=== PATIENT | male | born 1945 | race Caucasian/White ===

== ENCOUNTER 2016-09-27 15:46 | Inpatient (IN) | payer MEDICARE ==
[~2016-09-27] VITALS: Ht 188 cm; Wt 119.3 kg
[~2016-09-27 15:46] MED LIST: ASPI325T4 PO; ATORVASTATIN CA80 MG PO; EZET10TA3 PO; GLIP10TA13 PO; METF500T4 PO; METO25TA4 PO; MULT-404 PO; POTA99TA2 PO; RANI300T PO; VALS160T3 PO
[2016-09-27] MEDS ORDERED: PROCHLORPERAZINE 25 MG SUPP.RECT. PR PRN (17:00)
[2016-09-27] MEDS ORDERED: CALCIUM CARBONATE 500 MG TAB.CHEW PO PRN (17:00)
[2016-09-27] MEDS ORDERED: MORPHINE SULFATE 2 MG/ML DISP.SYRIN. IV PRN (17:00)
[2016-09-27] MEDS ORDERED: PROCHLORPERAZINE 10 MG/2 ML VIAL. IV PRN (17:00)
[2016-09-27] MEDS ORDERED: GLIPIZIDE 5 MG TABLET PO SCH (17:00)
[2016-09-27] MEDS ORDERED: BISACODYL 10 MG SUPP.RECT PR PRN (17:00)
[2016-09-27] MEDS ORDERED: ONDANSETRON PF 4 MG/2 ML VIAL. IV PRN (17:00)
[2016-09-27] MEDS ORDERED: LACTULOSE 20 GM/30 ML SOLUTION. PO PRN (17:00)
[2016-09-27] MEDS ORDERED: MAG HYDROX/ALUMINUM HYD/SIMETH 30 ML ORAL.SUSP PO PRN (17:00)
[2016-09-27] MEDS ORDERED: OXYCODONE IR 5 MG TABLET. PO PRN (17:00)
[2016-09-27] MEDS ORDERED: MAGNESIUM HYDROXIDE 2,400 MG/30 ML ORAL.SUSP. PO PRN (17:00)
--- NOTE | 2016-09-27 17:14 | PDOC1 ---
History and Physical Date of Admission Date of Admission DATE: 09/27/16 TIME: 17:06 Identification/Chief Complaint Chief Complaint abd pain Source Source: Caregiver, Chart review, Patient History of Present Illness History of Present Illness 71 y.o male who brought himself today to his PCP Brenda Rosario for cholecystectomy, He and his have been vacationing in [place] x 2 mos now, started to have acute abd pain with emesis and black stools x 1 week ago, was admitted overnight in a hospital in [place] (records in chart), was found to have multiple GB stones, largest one measuring 16 cms, Underwent ERCP with sphincterotomy and stent placement there, no surgery was done though advised bec pt from here and post op course, recovery would be unpredictable given size of GB stones, Pt looks comfortable laying down but when he moves then that's where the pain is. Also notes black stools, diarrheic, He brings records showing multiple GB stones, one eroding into duodenal wall? CD also in chart CAse dw Dr. Virgen () Past Medical History Cardiovascular: CAD, HTN Past Surgical History Past Surgical History: Appendectomy, CABG Family History Family History: No Significant Social History Smoke: No ALCOHOL: none Drugs: None Current Problem List Problem List Problems Medical Problems: (1) Cholelithiasis Status: Acute Problems: Current Medications Current Medications Current Medications Sodium Chloride (Iv Sodium Chloride 0.45%) 1,000 ml @ 100 mls/hr Q10H IV ; Start 09/27/16 at 16:50 Ondansetron HCl (Zofran) 4 mg PRN Q6HRS PRN IV NAUSEA/VOMITING; Start 09/27/16 at 17:00 Prochlorperazine Edisylate (Compazine) 10 mg PRN Q6HRS PRN IV NAUSEA/VOMITING; Start 09/27/16 at 17:00 Prochlorperazine (Compazine) 25 mg PRN Q12HR PRN [place] NAUSEA/VOMITING; Start at 17:00 Al Hydrox/Mg Hydrox/Simethicone (Mylanta Plus Xs) 30 ml PRN Q3HRS PRN PO HEARTBURN / GAS; Start 09/27/16 at 17:00 Calcium Carbonate/ Glycine (Tums) 500 mg PRN Q3HRS PRN PO UPSET STOMACH; Start 09/27/16 at 17:00 Oxycodone HCl (Roxicodone) 5 mg PRN Q3HRS PRN PO BREAKTHROUGH PAIN; Start 09/27 at 17:00 Morphine Sulfate 2 mg PRN Q2HR PRN IV MILD-MOD PAIN; Start 09/27/16 at 17:00 Magnesium Hydroxide (Milk Of Magnesia) 2,400 mg PRN Q12HR PRN PO CONSTIPATION; Start 09/27/16 at 17:00 Lactulose 20 gm PRN Q12HR PRN PO CONSTIPATION; Start 09/27/16 at 17:00 Bisacodyl (Dulcolax Supp) 10 mg PRN DAILY PRN [place] CONSTIPATION; Start 09/27/16 at 17:00 EZETIMIBE (Zetia) 10 mg DAILY PO ; Start 09/28/16 at 09:00 Metoprolol Tartrate (Lopressor) 12.5 mg HS PO ; Start 09/27/16 at 21:00 Atorvastatin Calcium (Lipitor) 80 mg QHS PO ; Start 09/27/16 at 21:00 Glipizide (Glucotrol) 10 mg BIDBFRMEAL PO ; Start 09/27/16 at 17:00 Multivitamins/ Calcium (Thera M Plus) 1 tab DAILY PO ; Start 09/28/16 at 09:00 Non-Formulary Medication 99 mg DAILY PO ; Start 09/28/16 at 09:00; Status UNV Famotidine (Pepcid) 20 mg BID PO ; Start 09/27/16 at 21:00 Active Scripts Active Reported Potassium Gluconate 99 Mg Tablet 99 Mg PO DAILY Men's Multi-Vitamin (Multivitamin) 1 Each Tablet 1 Each PO DAILY Aspirin 325 Mg Tablet 1 Tab PO DAILY Ranitidine Hcl 300 Mg Tablet 1 Tab PO BID Glipizide 10 Mg Tablet 1 Tab PO BIDWMEALS Zetia (Ezetimibe) 10 Mg Tablet 1 Tab PO DAILY Atorvastatin Calcium 80 Mg Tablet 1 Tab PO HS Metoprolol Tartrate 25 Mg Tablet 12.5 Mg PO HS Allergies Allergies: Coded Allergies: Penicillins (Verified Allergy, Intermediate, 05/13/16) lisinopril (Verified Allergy, Intermediate, 05/13/16) niacin (Verified Allergy, Intermediate, 05/13/16) ROS General: No: Appetite, Chills, Fatigue, Malaise, Night Sweats, Other PSYCHOLOGICAL ROS: No: Anxiety, Behavioral Disorder, Concentration difficultie , Decreased libido, Depression, Disorientation, Hallucinations, Hostility, Irritablity, Memory difficulties, Mood Swings, Obsessive thoughts, Other, Physical abuse, Sexual abuse, Sleep disturbances, Suicidal ideation Eyes: No Blurry vision, No Decreased vision, No Double vision, No Dry eyes, No Excessive tearing, No Eye Pain, No Itchy Eyes, No Loss of vision, No Other, No Photophobia, No Scotomata, No Uses contacts, No Uses glasses HEENT: No: Epistaxis, Heacaches, Hearing change, Nasal congestion, Nasal discharge, Oral lesions, Other, Sinus pain, Sneezing, Snoring, Sore Throat, Tinnitus, Vertigo, Visual Changes, Vocal changes ALLERGY AND IMMUNOLOGY: No: Hives, Insect Bite Sensitivity, Itchy/Watery Eyes, Nasal Congestion, Other, Post Nasal Drip, Seasonal Allergies Hematological and Lymphatic: No: Bleeding Problems, Blood Clots, Blood Transfusions, Brusing, Night Sweats, Other, Pallor, Swollen Lymph Nodes ENDOCRINE: No: Breast Changes, Galactorrhea, Hair Pattern Changes, Hot Flashes , Malaise/lethargy, Mood Swings, Other, Palpitations, Polydipsia/polyuria, Skin Changes, Temperature Intolerance, Unexpected Weight Changes Breast: No New/Changing Breast Lumps, No Nipple changes, No Nipple discharge, No Other Cardiovascular: No Chest Pain, No Edema, No Lt Headedness, No Orthopnea, No Other, No Palpitations, No Paroxysmal Noc. Dyspnea Gastrointestinal: Yes Diarrhea, Yes Melena Genitourinary: YES Pain, No , No , No , No , No , No , No , No Discharge, No Dysuria, No Flank Pain, No Frequency, No Hematuria, No Incontinence, No Other, No Retention, No Urgency Musculoskeletal: No Gait Disturbance, No Joint Pain, No Joint Stiffness, No Joint Swelling, No Muscle Pain, No Muscular Weakness, No Other, No Pain In:, No Swelling In: Neurological: No Behavorial Changes, No Bowel/Bladder ControlChng, No Confusion , No Dizziness, No Gait Disturbance, No Headaches, No Impaired Coord/balance, No Memory Loss, No Numbness/Tingling, No Other, No Seizures, No Speech Problems , No Tremors, No Visual Changes, No Weakness Skin: No Acne, No Dry Skin, No Eczema, No Hair Changes, No Lumps, No Mole Changes, No Mottling, No Nail Changes, No Other, No Pruritus, No Rash, No Skin Lesion Changes Physical Exam General: Alert, Oriented X3, Cooperative, No acute distress HEENT: Atraumatic, PERRLA, EOMI Lungs: Clear to auscultation, Normal air movement Heart: S1S2, RRR, no thrills, no rubs, no gallops, no murmurs Cardiovascular: S1, S2 Breasts: Normal Abdomen: Soft, Other (tenderness, mild on deep palpation, RUQ and epigatsric areas) Male Genitals Exam: normal genitalia Rectal Exam: not examined, mass PELVIC: Nml ext genitalia, Nml ext vulva, Nml ext vagina, Nml ext cervic, Nml ext uterus Extremities: No clubbing Skin: No rashes, No breakdown, No significant lesion Neuro: Normal gait, Normal speech, Strength at 5/5 X4 ext, Normal tone, Sensation intact, Cranial nerves 3-12 NL, Reflexes 2+ Psych/Mental Status: Mental status NL, Mood NL VTE Prophylaxis Ordered VTE Prophylaxis Devices: Yes VTE Pharmacological Prophylaxi: Yes Assessment/Plan Assessment/Plan 1. Multiple symptomatic cholelithiasis with choledocholithiasis - records from outside hospital reviewed 2. s/p ERCP with sphincterotomy and stent placement 3. Obesity 4. HTN, NIDDM, dyslipidemia 5. 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, [facility] PLAn: NPO, IVF BAsic labs (include pT./INR, CMP) GS consult REsume home meds except OHA since NPO SSI dw family and gS SANTHOSH AGUILAR MD Sep 27, 2016 17:14
[2016-09-27 17:30] LABS: BASO # 0.1 x10^3/uL (0.0-0.2); BASO % 1 % (0-3); EOS % 3 % (0-3); HEMATOCRIT 33.3 % (39.0-53.0); LYMPH # 1.9 x10^3/uL (1.0-4.8); LYMPH % 27 % (24-48); MEAN CORPUSCULAR HEMOGLOBIN 29 pg (25-35); MEAN CORPUSCULAR HGB CONC 33 g/dL (31-37); MEAN CORPUSCULAR VOLUME 87 fL (79-100); MONO % 13 % (0-9); NEUT % 56 % (31-73); PLATELET COUNT 297 x10^3/uL (140-400); RED BLOOD COUNT 3.83 x10^6/uL (4.30-5.70); RED CELL DISTRIBUTION WIDTH 15.8 % (11.5-14.5); WHITE BLOOD COUNT 7.1 x10^3/uL (4.0-11.0)
[2016-09-27 17:46] LABS: INR 1.1 (0.8-1.1); PROTHROMBIN TIME PATIENT 13.9 SEC (11.7-14.0)
--- NOTE | 2016-09-27 18:08 | EKG ---
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
[2016-09-27 18:12] LABS: ALBUMIN 2.9 g/dL (3.4-5.0); ALBUMIN/GLOBULIN RATIO 0.6 (1.0-1.7); CALCIUM 9.5 mg/dL (8.5-10.1); CREATININE 1.3 mg/dL (0.7-1.3); GFR 54.3; MAGNESIUM 1.8 mg/dL (1.8-2.4); PHOSPHORUS 4.2 mg/dL (2.6-4.7); POTASSIUM 3.9 mmol/L (3.5-5.1); TOTAL PROTEIN 7.7 g/dL (6.4-8.2)
[2016-09-27] MEDS: IV 1/2 NORMAL SALINE 1,000 ML IV SCH (18:13)
[2016-09-27 19:00] VITALS: BP 139/57
[2016-09-27] MEDS: ATORVASTATIN CALCIUM 40 MG TABLET. PO SCH (21:42)
[2016-09-27] MEDS: FAMOTIDINE 20 MG TABLET. PO SCH (21:42)
[2016-09-27] MEDS: METOPROLOL TART IMMED RELEASE 25 MG TABLET PO SCH (21:43)
[2016-09-27 23:00] VITALS: BP 134/52
[2016-09-28 03:00] VITALS: BP 145/60
[2016-09-28] MEDS: IV 1/2 NORMAL SALINE 1,000 ML IV SCH ×3 (03:47→21:37)
[2016-09-28 07:00] VITALS: BP 146/54
[2016-09-28] MEDS: FAMOTIDINE 20 MG TABLET. PO SCH ×3 (08:07→21:29)
[2016-09-28] MEDS: EZETIMIBE 10 MG TABLET PO SCH ×2 (08:08→11:53)
[2016-09-28] MEDS: MULTIVITAMIN with MINERAL TABLET. PO SCH ×2 (08:08→11:53)
[2016-09-28] MEDS ORDERED: NON FORMULARY ITEM (Potassium Gluconate 99 MG) PO SCH (09:00)
--- NOTE | 2016-09-28 09:09 | PDOC2 ---
LESLIE LOUISE TOOL HONING MACHINE SET UP OPERATOR 09/28/16 0909: CONSULT Date of Consult Date of Consult DATE: 09/28/16 TIME: 09:04 Reason for Consult Reason for Consult: cholecystitis Referring Physician Referring Physician: Dr Benites Identification/Chief Complaint Chief Complaint cholecystitis Source Source: Chart review, Patient History of Present Illness Reason for Visit: Admitted 09/24 in [place] where vacationing for ongoing abdominal pain, it had been occurring for 2 weeks or so. noted to have choledocholithiasis, underwent ERCP, needed lap wero, however wanted to return home prior to surgery. Denies pain currently, no n/v, has been taking clear liquids Past Medical History Cardiovascular: CAD, HTN Past Surgical History Past Surgical History: Appendectomy, CABG Family History Family History: No Significant Social History No ALCOHOL: other (quit 2001, was a heavy drinker prior) Drugs: None Current Problem List Problem List Problems Medical Problems: (1) Cholelithiasis Status: Acute Current Medications Current Medications Current Medications Sodium Chloride (Iv Sodium Chloride 0.45%) 1,000 ml @ 100 mls/hr Q10H IV Last administered on 09/28/16t 03:47; Start 09/27/16 at 16:50 Ondansetron HCl (Zofran) 4 mg PRN Q6HRS PRN IV NAUSEA/VOMITING; Start 09/27/16 at 17:00 Prochlorperazine Edisylate (Compazine) 10 mg PRN Q6HRS PRN IV NAUSEA/VOMITING; Start 09/27/16 at 17:00 Prochlorperazine (Compazine) 25 mg PRN Q12HR PRN [place] NAUSEA/VOMITING; Start at 17:00 Al Hydrox/Mg Hydrox/Simethicone (Mylanta Plus Xs) 30 ml PRN Q3HRS PRN PO HEARTBURN / GAS; Start 09/27/16 at 17:00 Calcium Carbonate/ Glycine (Tums) 500 mg PRN Q3HRS PRN PO UPSET STOMACH; Start 09/27/16 at 17:00 Oxycodone HCl (Roxicodone) 5 mg PRN Q3HRS PRN PO BREAKTHROUGH PAIN; Start 09/27 at 17:00 Morphine Sulfate 2 mg PRN Q2HR PRN IV MILD-MOD PAIN; Start 09/27/16 at 17:00 Magnesium Hydroxide (Milk Of Magnesia) 2,400 mg PRN Q12HR PRN PO CONSTIPATION; Start 09/27/16 at 17:00; Stop 09/27/16 at 17:15; Status DC Lactulose 20 gm PRN Q12HR PRN PO CONSTIPATION; Start 09/27/16 at 17:00; Stop at 17:15; Status DC Bisacodyl (Dulcolax Supp) 10 mg PRN DAILY PRN [place] CONSTIPATION; Start 09/27/16 at 17:00; Stop 09/27/16 at 17:15; Status DC EZETIMIBE (Zetia) 10 mg DAILY PO ; Start 09/28/16 at 09:00 Metoprolol Tartrate (Lopressor) 12.5 mg HS PO Last administered on 09/27/16t 21 :43; Start 09/27/16 at 21:00 Atorvastatin Calcium (Lipitor) 80 mg QHS PO Last administered on 09/27/16 21: 42; Start 09/27/16 at 21:00 Glipizide (Glucotrol) 10 mg BIDBFRMEAL PO ; Start 09/27/16 at 17:00; Stop at 17:15; Status DC Multivitamins/ Calcium (Thera M Plus) 1 tab DAILY PO ; Start 09/28/16 at 09:00 Non-Formulary Medication 99 mg DAILY PO ; Start 09/28/16 at 09:00; Status UNV Famotidine (Pepcid) 20 mg BID PO Last administered on 09/27/16 21:42; Start at 21:00 Active Scripts Active Reported Potassium Gluconate 99 Mg Tablet 99 Mg PO DAILY Men's Multi-Vitamin (Multivitamin) 1 Each Tablet 1 Each PO DAILY Aspirin 325 Mg Tablet 1 Tab PO DAILY Ranitidine Hcl 300 Mg Tablet 1 Tab PO BID Glipizide 10 Mg Tablet 1 Tab PO BIDWMEALS Zetia (Ezetimibe) 10 Mg Tablet 1 Tab PO DAILY Atorvastatin Calcium 80 Mg Tablet 1 Tab PO HS Metoprolol Tartrate 25 Mg Tablet 12.5 Mg PO HS Allergies Allergies: Coded Allergies: Penicillins (Verified Allergy, Intermediate, 05/13/16) lisinopril (Verified Allergy, Intermediate, 05/13/16) niacin (Verified Allergy, Intermediate, 09/27/16) Hives, itching, swelling, sweating ROS General: No: Chills, Other (fevers) PSYCHOLOGICAL ROS: No: Anxiety, Depression Eyes: No Blurry vision, No Double vision HEENT: No: Heacaches, Sore Throat Hematological and Lymphatic: No: Bleeding Problems, Blood Clots Respiratory: No: Cough, Shortness of breath Cardiovascular: No Chest Pain, No Palpitations Gastrointestinal: No Nausea, No Vomiting Genitourinary: No Dysuria, No Hematuria Musculoskeletal: No Joint Pain, No Muscle Pain Neurological: No Confusion, No Numbness/Tingling Skin: No Pruritus, No Rash Physical Exam General: Alert, Oriented X3, Cooperative, No acute distress HEENT: PERRLA, Mucous membr. moist/pink Lungs: Clear to auscultation, Normal air movement Heart: Regular rate, Normal S1, Normal S2, No murmurs Abdomen: Soft, Other (NTTP, ND, LLQ scar) Extremities: No clubbing, No cyanosis Skin: No rashes, No breakdown Neuro: Normal speech, Sensation intact Psych/Mental Status: Mental status NL, Mood NL MUSCULOSKELETAL: No deformity, No swelling Vitals VITALS Vital Signs Date Time Temp Pulse Resp B/P Pulse Ox O2 Delivery O2 Flow Rate FiO2 09/28/16 03:00 97.7 55 18 145/60 97 Room Air 97.7 Labs Labs Laboratory Tests Test 09/27/16 17:25 White Blood Count 7.1x10^3/uL (4.0-11.0) Red Blood Count 3.83x10^6/uL (4.30-5.70) Hemoglobin 11.0g/dL (13.0-17.5) Hematocrit 33.3% (39.0-53.0) Mean Corpuscular Volume 87fL (79-100) Mean Corpuscular Hemoglobin 29pg (25-35) Mean Corpuscular Hemoglobin Concent 33g/dL (31-37) Red Cell Distribution Width 15.8% (11.5-14.5) Platelet Count 297x10^3/uL (140-400) Neutrophils (%) (Auto) 56% (31-73) Lymphocytes (%) (Auto) 27% (24-48) Monocytes (%) (Auto) 13% (0-9) Eosinophils (%) (Auto) 3% (0-3) Basophils (%) (Auto) 1% (0-3) Neutrophils # (Auto) 3.9x10^3uL (1.8-7.7) Lymphocytes # (Auto) 1.9x10^3/uL (1.0-4.8) Monocytes # (Auto) 0.9x10^3/uL (0.0-1.1) Eosinophils # (Auto) 0.2x10^3/uL (0.0-0.7) Basophils # (Auto) 0.1x10^3/uL (0.0-0.2) Prothrombin Time 13.9SEC (11.7-14.0) Prothromb Time International Ratio 1.1 (0.8-1.1) Sodium Level 145mmol/L (136-145) Potassium Level 3.9mmol/L (3.5-5.1) Chloride Level 107mmol/L (98-107) Carbon Dioxide Level 27mmol/L (21-32) Anion Gap 11 (6-14) Blood Urea Nitrogen 24mg/dL (8-26) Creatinine 1.3mg/dL (0.7-1.3) Estimated GFR (Cockcroft-Gault) 54.3 BUN/Creatinine Ratio 18 (6-20) Glucose Level 128mg/dL (70-99) Calcium Level 9.5mg/dL (8.5-10.1) Phosphorus Level 4.2mg/dL (2.6-4.7) Magnesium Level 1.8mg/dL (1.8-2.4) Total Bilirubin 1.0mg/dL (0.2-1.0) Aspartate Amino Transf (AST/SGOT) 79U/L (15-37) Alanine Aminotransferase (ALT/SGPT) 95U/L (16-63) Alkaline Phosphatase 600U/L (46-116) Total Protein 7.7g/dL (6.4-8.2) Albumin 2.9g/dL (3.4-5.0) Albumin/Globulin Ratio 0.6 (1.0-1.7) Laboratory Tests Test 09/27/16 17:25 White Blood Count 7.1x10^3/uL (4.0-11.0) Red Blood Count 3.83x10^6/uL (4.30-5.70) Hemoglobin 11.0g/dL (13.0-17.5) Hematocrit 33.3% (39.0-53.0) Mean Corpuscular Volume 87fL (79-100) Mean Corpuscular Hemoglobin 29pg (25-35) Mean Corpuscular Hemoglobin Concent 33g/dL (31-37) Red Cell Distribution Width 15.8% (11.5-14.5) Platelet Count 297x10^3/uL (140-400) Neutrophils (%) (Auto) 56% (31-73) Lymphocytes (%) (Auto) 27% (24-48) Monocytes (%) (Auto) 13% (0-9) Eosinophils (%) (Auto) 3% (0-3) Basophils (%) (Auto) 1% (0-3) Neutrophils # (Auto) 3.9x10^3uL (1.8-7.7) Lymphocytes # (Auto) 1.9x10^3/uL (1.0-4.8) Monocytes # (Auto) 0.9x10^3/uL (0.0-1.1) Eosinophils # (Auto) 0.2x10^3/uL (0.0-0.7) Basophils # (Auto) 0.1x10^3/uL (0.0-0.2) Prothrombin Time 13.9SEC (11.7-14.0) Prothromb Time International Ratio 1.1 (0.8-1.1) Sodium Level 145mmol/L (136-145) Potassium Level 3.9mmol/L (3.5-5.1) Chloride Level 107mmol/L (98-107) Carbon Dioxide Level 27mmol/L (21-32) Anion Gap 11 (6-14) Blood Urea Nitrogen 24mg/dL (8-26) Creatinine 1.3mg/dL (0.7-1.3) Estimated GFR (Cockcroft-Gault) 54.3 BUN/Creatinine Ratio 18 (6-20) Glucose Level 128mg/dL (70-99) Calcium Level 9.5mg/dL (8.5-10.1) Phosphorus Level 4.2mg/dL (2.6-4.7) Magnesium Level 1.8mg/dL (1.8-2.4) Total Bilirubin 1.0mg/dL (0.2-1.0) Aspartate Amino Transf (AST/SGOT) 79U/L (15-37) Alanine Aminotransferase (ALT/SGPT) 95U/L (16-63) Alkaline Phosphatase 600U/L (46-116) Total Protein 7.7g/dL (6.4-8.2) Albumin 2.9g/dL (3.4-5.0) Albumin/Globulin Ratio 0.6 (1.0-1.7) Assessment/Plan Assessment/Plan cholecystitis, choledocholithiasis, s/p ERCP MRI had concerns for duodenal obstruction or erosion, post ERCP CT showed not extravasation of contrast in biliary system CAD, HI HTN cirrhosis, splenomegaly, portal HTN noted on CT will review with FABRICE Diego MD 09/28/16 1004: CONSULT Allergies Allergies: Coded Allergies: Penicillins (Verified Allergy, Intermediate, 05/13/16) lisinopril (Verified Allergy, Intermediate, 05/13/16) niacin (Verified Allergy, Intermediate, 09/27/16) Hives, itching, swelling, sweating Assessment/Plan Assessment/Plan Patient seen and examined by me. Appears comfortable, complains of mild upper abdominal pain but best its been in a week. Denies N/V/F. Reviewed chart from [facility]. Cholelithiasis with choledocolithiasis s/p ERCP with stent. 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 This potentially could mean surgical reconstruction of the duodenum and or biliary system. Will have Dr Doyle evaluated on Saturday (he is aware of Mr Mccabe) in the mean time will have cardiology see patient due to his significant heart history. I've spoken with the patient and family about the surgical plans, and they are agreeable. LESLIE LOUISE APRN Sep 28, 2016 09:09 FABRICE PALAFOX MD Sep 28, 2016 10:04
[2016-09-28] MEDS ORDERED: DEXTROSE 50% 25 GM / 50ML DISP.SYRIN. IV PRN (09:45)
--- NOTE | 2016-09-28 09:46 | PDOC2 ---
CARDIAC CONSULT DATE OF CONSULT Date of Consult DATE: 09/28/16 TIME: 09:45 REASON FOR CONSULT Reason for Consult: pre-operative evaluation REFERRING PHYSICIAN Referring Physician: Angelita Fierro APRN SOURCE Source: Chart review, Patient HISTORY OF PRESENT ILLNESS HISTORY OF PRESENT ILLNESS 71 year old male diagnosed with gallstones in [place] earlier this week and underwent ERCP there. Was advised to undergo surgery but opted to return to [facility]. Now tentatively scheduled for surgery on Saturday. Reason for Visit: pre-operative evaluation PAST MEDICAL HISTORY Cardiovascular: CAD (with CABG done 2007; number of grafts unknown), HTN, Hyperlipidemia Pulmonary: No pertinent hx CENTRAL NERVOUS SYSTEM: Other (none) GI: No pertinent hx Heme/Onc: No pertinent hx Hepatobiliary: No pertinent hx Psych: No pertinent hx Musculoskeletal: No pain Rheumatologic: No pertinent hx Infectious disease: No pertinent hx ENT: No pertinent hx Renal/: Chronic renal insuff (metformin stopped) Endocrine: Diabetes (type II; CBG usually 157-200) Dermatology: No pertinent hx PAST SURGICAL HISTORY Past Surgical History: CABG, Hernia Repair ([place]) FAMILY HISTORY Family History: Coronary Artery Disease (both sides of the family) SOCIAL HISTORY Smoke: No ALCOHOL: none Drugs: None Lives: with Family CURRENT MEDICATIONS CURRENT MEDICATIONS Current Medications Medications (Trade) Dose Ordered Sig/Cristiana Route PRN Reason Start Time Stop Time Status Last Admin Dose Admin Sodium Chloride (Iv Sodium Chloride 0.45%) 1,000 ml @ 100 mls/hr Q10H IV 09/27/16 16:50 09/28/16 03:47 Metoprolol Tartrate (Lopressor) 12.5 mg HS PO 09/27/16 21:00 09/27/16 21:43 Atorvastatin Calcium (Lipitor) 80 mg QHS PO 09/27/16 21:00 09/27/16 21:42 Famotidine (Pepcid) 20 mg BID PO 09/27/16 21:00 09/27/16 21:42 ALLERGIES ALLERGIES: Coded Allergies: Penicillins (Verified Allergy, Intermediate, 05/13/16) lisinopril (Verified Allergy, Intermediate, 05/13/16) niacin (Verified Allergy, Intermediate, 09/27/16) Hives, itching, swelling, sweating ROS General: YES: Other (weight loss of about 20# in the last 1 - 2 months), No: Appetite, Chills, Fatigue, Malaise, Night Sweats PSYCHOLOGICAL ROS: No: Anxiety, Behavioral Disorder, Concentration difficultie , Decreased libido, Depression, Disorientation, Hallucinations, Hostility, Irritablity, Memory difficulties, Mood Swings, Obsessive thoughts, Other, Physical abuse, Sexual abuse, Sleep disturbances, Suicidal ideation Eyes: No Blurry vision, No Decreased vision, No Double vision, No Dry eyes, No Excessive tearing, No Eye Pain, No Itchy Eyes, No Loss of vision, No Other, No Photophobia, No Scotomata, No Uses contacts, No Uses glasses HEENT: No: Epistaxis, Heacaches, Hearing change, Nasal congestion, Nasal discharge, Oral lesions, Other, Sinus pain, Sneezing, Snoring, Sore Throat, Tinnitus, Vertigo, Visual Changes, Vocal changes ALLERGY AND IMMUNOLOGY: No: Hives, Insect Bite Sensitivity, Itchy/Watery Eyes, Nasal Congestion, Other, Post Nasal Drip, Seasonal Allergies Hematological and Lymphatic: No: Bleeding Problems, Blood Clots, Blood Transfusions, Brusing, Night Sweats, Other, Pallor, Swollen Lymph Nodes ENDOCRINE: No: Breast Changes, Galactorrhea, Hair Pattern Changes, Hot Flashes , Malaise/lethargy, Mood Swings, Other, Palpitations, Polydipsia/polyuria, Skin Changes, Temperature Intolerance, Unexpected Weight Changes Respiratory: No: Cough, Hemoptysis, Orthopnea, Other, Pleuritic Pain, SOB with excertion, Shortness of breath, Sputum Changes, Stridor, Tachypnea, Wheezing Cardiovascular: No Chest Pain, No Edema, No Lt Headedness, No Orthopnea, No Other, No Palpitations, No Paroxysmal Noc. Dyspnea Gastrointestinal: Yes Nausea, Yes Other (dark colored stools), No Abdominal Pain, No Constipation, No Diarrhea, No Hematochezia, No Melena, No Vomiting Genitourinary: YES Hematuria, No Discharge, No Dysuria, No Flank Pain, No Frequency, No Incontinence, No Other, No Pain, No Retention, No Urgency Musculoskeletal: No Gait Disturbance, No Joint Pain, No Joint Stiffness, No Joint Swelling, No Muscle Pain, No Muscular Weakness, No Other, No Pain In:, No Swelling In: Neurological: No Behavorial Changes, No Bowel/Bladder ControlChng, No Confusion , No Dizziness, No Gait Disturbance, No Headaches, No Impaired Coord/balance, No Memory Loss, No Numbness/Tingling, No Other, No Seizures, No Speech Problems , No Tremors, No Visual Changes, No Weakness Skin: No Acne, No Dry Skin, No Eczema, No Hair Changes, No Lumps, No Mole Changes, No Mottling, No Nail Changes, No Other, No Pruritus, No Rash, No Skin Lesion Changes PHYSICAL EXAM General: Alert, Oriented X3, Cooperative, No acute distress HEENT: Atraumatic, PERRLA Lungs: Clear to auscultation, Normal air movement Heart: Regular rate, Normal S1, Normal S2, No murmurs, Other (no carotid bruits bilaterally) Abdomen: Normal bowel sounds, Soft Extremities: No edema, Normal pulses Skin: No rashes Neuro: Normal speech Psych/Mental Status: Mental status NL MUSCULOSKELETAL: No joint tenderness VITALS VITALS Vital Signs Date Time Temp Pulse Resp B/P Pulse Ox O2 Delivery O2 Flow Rate FiO2 09/28/16 07:00 97.5 56 14 146/54 96 Room Air 97.5 LABS Lab: Laboratory Tests Test 09/27/16 17:25 White Blood Count 7.1x10^3/uL (4.0-11.0) Red Blood Count 3.83x10^6/uL (4.30-5.70) Hemoglobin 11.0g/dL (13.0-17.5) Hematocrit 33.3% (39.0-53.0) Mean Corpuscular Volume 87fL (79-100) Mean Corpuscular Hemoglobin 29pg (25-35) Mean Corpuscular Hemoglobin Concent 33g/dL (31-37) Red Cell Distribution Width 15.8% (11.5-14.5) Platelet Count 297x10^3/uL (140-400) Neutrophils (%) (Auto) 56% (31-73) Lymphocytes (%) (Auto) 27% (24-48) Monocytes (%) (Auto) 13% (0-9) Eosinophils (%) (Auto) 3% (0-3) Basophils (%) (Auto) 1% (0-3) Neutrophils # (Auto) 3.9x10^3uL (1.8-7.7) Lymphocytes # (Auto) 1.9x10^3/uL (1.0-4.8) Monocytes # (Auto) 0.9x10^3/uL (0.0-1.1) Eosinophils # (Auto) 0.2x10^3/uL (0.0-0.7) Basophils # (Auto) 0.1x10^3/uL (0.0-0.2) Prothrombin Time 13.9SEC (11.7-14.0) Prothromb Time International Ratio 1.1 (0.8-1.1) Sodium Level 145mmol/L (136-145) Potassium Level 3.9mmol/L (3.5-5.1) Chloride Level 107mmol/L (98-107) Carbon Dioxide Level 27mmol/L (21-32) Anion Gap 11 (6-14) Blood Urea Nitrogen 24mg/dL (8-26) Creatinine 1.3mg/dL (0.7-1.3) Estimated GFR (Cockcroft-Gault) 54.3 BUN/Creatinine Ratio 18 (6-20) Glucose Level 128mg/dL (70-99) Calcium Level 9.5mg/dL (8.5-10.1) Phosphorus Level 4.2mg/dL (2.6-4.7) Magnesium Level 1.8mg/dL (1.8-2.4) Total Bilirubin 1.0mg/dL (0.2-1.0) Aspartate Amino Transf (AST/SGOT) 79U/L (15-37) Alanine Aminotransferase (ALT/SGPT) 95U/L (16-63) Alkaline Phosphatase 600U/L (46-116) Total Protein 7.7g/dL (6.4-8.2) Albumin 2.9g/dL (3.4-5.0) Albumin/Globulin Ratio 0.6 (1.0-1.7) IMAGES IMAGES CXR pending EKG EKG SR without acute changes ECHOCARDIOGRAM ECHOCARDIOGRAM 05/14/2016: TTE: The left ventricular systolic function is normal and the ejection fraction is within normal range. The Ejection Fraction is 55-60%. There is normal LV segmental wall motion. Transmitral Doppler flow pattern is Grade I-abnormal relaxation pattern. The left atrium is mildly dilated. Doppler and Color Flow revealed trace tricuspid regurgitation. The PA pressure was estimated at 28 mmHg. There is no evidence of significant pericardial effusion. STRESS TEST STRESS TEST 05/14/2016 1. Regadenoson cardioisotope stress test did not show any evidence of ischemia or infarct. 2. Normal left ventricular systolic function with ejection fraction calculated at 63%. 3. Low risk for cardiac events. ASSESSMENT/PLAN ASSESSMENT/PLAN 1. pre-operative evaluation CXR pending no acute changes in EKG no anginal symptoms (usually follows with [facility]) continue beta-blockers during shamika-operative period - may need to give IV post-operatively while NPO Revised Ca risk score of 1 corresponding to 0.9% risk of major cardiac event 2. CAD with previous CABG no anginal symptoms low risk MPI 05/14/2016 echo without significant findings 05/14/2016 and preserved LVEF continue medical management - recommend f/u with [facility] @ [facility] 2 weeks after discharge 3. HTN controlled with medications 4. HLD elevated LFTs due to GB disease may hold statins for now if requested by GI/Surgery 5. 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
--- NOTE | 2016-09-28 09:58 | PDOC ---
PROGRESS NOTES Chief Complaint Chief Complaint Bing(doco)lithiasis ASSESSMENT AND PLAN: 1. Choledocholithiasis: s/p ERCP w/ stent in [place] on 09/24. Surgery consult for consideration of CCY 2. Transaminitis: most likely 2/2 stones. worse compared to labs from [place]. monitor 3. CAD: hx 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. no acute issues. D/w Dr Koch: had recent cardiac W/U and is cleared for surgery 4. HTN: borderline control, but oral meds on hold currently. 5 HLD: on statin (on hold) 6. DM: holding oral meds, in ISS 7. CRD3: appears stable. monitor 8. Anemia: normocytic, normochromic. suspect 2/2 chronic inflammation, CKD/ DM. check anemia labs 9. Prophylaxis: SCDs ADDENDUM: surgery tentatively planned for next , Dr Burger Vitals Vitals Vital Signs Date Time Temp Pulse Resp B/P Pulse Ox O2 Delivery O2 Flow Rate FiO2 09/28/16 07:00 97.5 56 14 146/54 96 Room Air 97.5 Physical Exam General: Alert, Oriented X3, Cooperative, No acute distress Heart: Regular rate, No murmurs Lungs: Clear Abdomen: Soft, Other (NTTP, ND, LLQ scar) Extremities: No clubbing, No cyanosis Skin: No rashes, No breakdown Labs LABS Laboratory Tests Test 09/27/16 17:25 White Blood Count 7.1x10^3/uL (4.0-11.0) Red Blood Count 3.83x10^6/uL (4.30-5.70) Hemoglobin 11.0g/dL (13.0-17.5) Hematocrit 33.3% (39.0-53.0) Mean Corpuscular Volume 87fL (79-100) Mean Corpuscular Hemoglobin 29pg (25-35) Mean Corpuscular Hemoglobin Concent 33g/dL (31-37) Red Cell Distribution Width 15.8% (11.5-14.5) Platelet Count 297x10^3/uL (140-400) Neutrophils (%) (Auto) 56% (31-73) Lymphocytes (%) (Auto) 27% (24-48) Monocytes (%) (Auto) 13% (0-9) Eosinophils (%) (Auto) 3% (0-3) Basophils (%) (Auto) 1% (0-3) Neutrophils # (Auto) 3.9x10^3uL (1.8-7.7) Lymphocytes # (Auto) 1.9x10^3/uL (1.0-4.8) Monocytes # (Auto) 0.9x10^3/uL (0.0-1.1) Eosinophils # (Auto) 0.2x10^3/uL (0.0-0.7) Basophils # (Auto) 0.1x10^3/uL (0.0-0.2) Prothrombin Time 13.9SEC (11.7-14.0) Prothromb Time International Ratio 1.1 (0.8-1.1) Sodium Level 145mmol/L (136-145) Potassium Level 3.9mmol/L (3.5-5.1) Chloride Level 107mmol/L (98-107) Carbon Dioxide Level 27mmol/L (21-32) Anion Gap 11 (6-14) Blood Urea Nitrogen 24mg/dL (8-26) Creatinine 1.3mg/dL (0.7-1.3) Estimated GFR (Cockcroft-Gault) 54.3 BUN/Creatinine Ratio 18 (6-20) Glucose Level 128mg/dL (70-99) Calcium Level 9.5mg/dL (8.5-10.1) Phosphorus Level 4.2mg/dL (2.6-4.7) Magnesium Level 1.8mg/dL (1.8-2.4) Total Bilirubin 1.0mg/dL (0.2-1.0) Aspartate Amino Transf (AST/SGOT) 79U/L (15-37) Alanine Aminotransferase (ALT/SGPT) 95U/L (16-63) Alkaline Phosphatase 600U/L (46-116) Total Protein 7.7g/dL (6.4-8.2) Albumin 2.9g/dL (3.4-5.0) Albumin/Globulin Ratio 0.6 (1.0-1.7) Review of Systems Review of Systems all in all, doing ok. anxious about surgery, mild RUQ/epigastric pain KATIE DE LA CRUZ MD Sep 28, 2016 09:58
[2016-09-28 11:00] VITALS: BP 118/83
[2016-09-28 11:04] LABS: BASO % 1 % (0-3); EOS % 4 % (0-3); HEMATOCRIT 34.6 % (39.0-53.0); HEMOGLOBIN 11.5 g/dL (13.0-17.5); LYMPH # 1.8 x10^3/uL (1.0-4.8); LYMPH % 27 % (24-48); MEAN CORPUSCULAR HEMOGLOBIN 29 pg (25-35); MEAN CORPUSCULAR HGB CONC 33 g/dL (31-37); MEAN CORPUSCULAR VOLUME 86 fL (79-100); MONO % 10 % (0-9); NEUT % 58 % (31-73); PLATELET COUNT 331 x10^3/uL (140-400); RED BLOOD COUNT 4.04 x10^6/uL (4.30-5.70); RED CELL DISTRIBUTION WIDTH 15.8 % (11.5-14.5); WHITE BLOOD COUNT 6.7 x10^3/uL (4.0-11.0)
[2016-09-28 11:13] LABS: CALCIUM 9.3 mg/dL (8.5-10.1); CREATININE 1.1 mg/dL (0.7-1.3); GFR 65.8; POTASSIUM 4.5 mmol/L (3.5-5.1)
[2016-09-28 11:18] LABS: % SAT IRON 14 % (15-34); IRON,SERUM 41 ug/dL (65-175)
[2016-09-28 11:19] LABS: ALBUMIN 2.7 g/dL (3.4-5.0); ALBUMIN/GLOBULIN RATIO 0.6 (1.0-1.7); TOTAL BILIRUBIN 0.9 mg/dL (0.2-1.0); TOTAL PROTEIN 7.6 g/dL (6.4-8.2)
[2016-09-28] MEDS: INSULIN ASPART 300 UNITS/3 ML INSULN.PEN SQ SCH ×2 (11:46→17:00)
--- NOTE | 2016-09-28 13:10 | RAD ---
Chest, 2 views, 09/28/2016: History: Preop evaluation for cholecystectomy Comparison is made to a study from 05/12/2016. There has been a previous median sternotomy. The heart size and pulmonary vascularity are normal. There is a calcified granuloma in the right lung. No acute infiltrates are seen. There is no evidence of pleural fluid. Moderate spurring is present in the spine. IMPRESSION: No acute cardiopulmonary abnormality is detected.
[2016-09-28 15:00] VITALS: BP 135/49
[2016-09-28 19:00] VITALS: BP 140/48
[2016-09-28] MEDS: ATORVASTATIN CALCIUM 40 MG TABLET. PO SCH (21:28)
[2016-09-28] MEDS: METOPROLOL TART IMMED RELEASE 25 MG TABLET PO SCH (21:32)
[2016-09-28 23:00] VITALS: BP 123/48
[2016-09-29 03:00] VITALS: BP 115/62
[2016-09-29 07:00] VITALS: BP 139/49
[2016-09-29] MEDS: INSULIN ASPART 300 UNITS/3 ML INSULN.PEN SQ SCH ×3 (08:00→17:45)
[2016-09-29] MEDS: FAMOTIDINE 20 MG TABLET. PO SCH ×2 (08:18→20:31)
[2016-09-29] MEDS: EZETIMIBE 10 MG TABLET PO SCH (08:18)
[2016-09-29] MEDS: IV 1/2 NORMAL SALINE 1,000 ML IV SCH (08:18)
[2016-09-29] MEDS: MULTIVITAMIN with MINERAL TABLET. PO SCH ×2 (08:18→20:31)
[2016-09-29 11:00] VITALS: BP 137/48
--- NOTE | 2016-09-29 11:59 | PDOC ---
PROGRESS NOTES Subjective Subjective feeling well, generally no pain Objective Objective Vital Signs Date Time Temp Pulse Resp B/P Pulse Ox O2 Delivery O2 Flow Rate FiO2 09/29/16 07:50 Room Air 09/29/16 07:00 97.4 52 18 139/49 96 97.4 Intake and Output 09/29/16 07:00 Intake Total 2282 ml Output Total 1 ml Balance 2281 ml IV Total 2282 ml Output Stool Total 1 ml # Voids 3 Physical Exam Abdomen: Soft, No tenderness Extremities: No clubbing, No cyanosis General: Alert, Oriented X3, Cooperative HEENT: Atraumatic Lungs: Clear to auscultation MUSCULOSKELETAL: No deformity Neuro: Normal speech, Strength at 5/5 X4 ext Psych/Mental Status: Mental status NL Assessment Assessment Problems Medical Problems: (1) Cholelithiasis Status: Acute Plan Plan of Care Dr Doyle to assess Saturday Comment Review of Relevant I have reviewed the following items jose (where applicable) has been applied. Labs Laboratory Tests Test 09/27/16 17:25 09/28/16 10:30 09/28/16 11:40 09/28/16 12:37 White Blood Count 7.1x10^3/uL (4.0-11.0) 6.7x10^3/uL (4.0-11.0) Red Blood Count 3.83x10^6/uL (4.30-5.70) 4.04x10^6/uL (4.30-5.70) Hemoglobin 11.0g/dL (13.0-17.5) 11.5g/dL (13.0-17.5) Hematocrit 33.3% (39.0-53.0) 34.6% (39.0-53.0) Mean Corpuscular Volume 87fL (79-100) 86fL (79-100) Mean Corpuscular Hemoglobin 29pg (25-35) 29pg (25-35) Mean Corpuscular Hemoglobin Concent 33g/dL (31-37) 33g/dL (31-37) Red Cell Distribution Width 15.8% (11.5-14.5) 15.8% (11.5-14.5) Platelet Count 297x10^3/uL (140-400) 331x10^3/uL (140-400) Neutrophils (%) (Auto) 56% (31-73) 58% (31-73) Lymphocytes (%) (Auto) 27% (24-48) 27% (24-48) Monocytes (%) (Auto) 13% (0-9) 10% (0-9) Eosinophils (%) (Auto) 3% (0-3) 4% (0-3) Basophils (%) (Auto) 1% (0-3) 1% (0-3) Neutrophils # (Auto) 3.9x10^3uL (1.8-7.7) 3.9x10^3uL (1.8-7.7) Lymphocytes # (Auto) 1.9x10^3/uL (1.0-4.8) 1.8x10^3/uL (1.0-4.8) Monocytes # (Auto) 0.9x10^3/uL (0.0-1.1) 0.7x10^3/uL (0.0-1.1) Eosinophils # (Auto) 0.2x10^3/uL (0.0-0.7) 0.3x10^3/uL (0.0-0.7) Basophils # (Auto) 0.1x10^3/uL (0.0-0.2) 0.0x10^3/uL (0.0-0.2) Prothrombin Time 13.9SEC (11.7-14.0) Prothromb Time International Ratio 1.1 (0.8-1.1) Sodium Level 145mmol/L (136-145) 142mmol/L (136-145) Potassium Level 3.9mmol/L (3.5-5.1) 4.5mmol/L (3.5-5.1) Chloride Level 107mmol/L (98-107) 105mmol/L (98-107) Carbon Dioxide Level 27mmol/L (21-32) 27mmol/L (21-32) Anion Gap 11 (6-14) 10 (6-14) Blood Urea Nitrogen 24mg/dL (8-26) 17mg/dL (8-26) Creatinine 1.3mg/dL (0.7-1.3) 1.1mg/dL (0.7-1.3) Estimated GFR (Cockcroft-Gault) 54.3 65.8 BUN/Creatinine Ratio 18 (6-20) 15 (6-20) Glucose Level 128mg/dL (70-99) 128mg/dL (70-99) Calcium Level 9.5mg/dL (8.5-10.1) 9.3mg/dL (8.5-10.1) Phosphorus Level 4.2mg/dL (2.6-4.7) Magnesium Level 1.8mg/dL (1.8-2.4) Total Bilirubin 1.0mg/dL (0.2-1.0) 0.9mg/dL (0.2-1.0) Aspartate Amino Transf (AST/SGOT) 79U/L (15-37) 83U/L (15-37) Alanine Aminotransferase (ALT/SGPT) 95U/L (16-63) 86U/L (16-63) Alkaline Phosphatase 600U/L (46-116) 556U/L (46-116) Total Protein 7.7g/dL (6.4-8.2) 7.6g/dL (6.4-8.2) Albumin 2.9g/dL (3.4-5.0) 2.7g/dL (3.4-5.0) Albumin/Globulin Ratio 0.6 (1.0-1.7) 0.6 (1.0-1.7) Reticulocyte Count (auto) 1.8% (0.5-2.5) Iron Level 41ug/dL (65-175) Total Iron Binding Capacity 300ug/dL (250-450) Iron Saturation 14% (15-34) Ferritin 266ng/mL (26-388) Triglycerides Level 90mg/dL (0-150) Cholesterol Level 133mg/dL (0-200) LDL Cholesterol, Calculated 82mg/dL (0-100) VLDL Cholesterol, Calculated 18mg/dL (0-40) HDL Cholesterol 33mg/dL (40-60) Cholesterol/HDL Ratio Vitamin B12 Level 1261pg/mL (211-946) Folic Acid (LAB) 14.0ng/mL (>3.0) Glucose (Fingerstick) 113mg/dL (70-99) Clostridium difficile Toxin (PCR) Negative (Negative) Test 09/28/16 15:38 09/28/16 21:25 09/29/16 08:01 Glucose (Fingerstick) 150mg/dL (70-99) 154mg/dL (70-99) 143mg/dL (70-99) Laboratory Tests Test 09/28/16 12:37 09/28/16 15:38 09/28/16 21:25 09/29/16 08:01 Clostridium difficile Toxin (PCR) Negative (Negative) Glucose (Fingerstick) 150mg/dL (70-99) 154mg/dL (70-99) 143mg/dL (70-99) Medications Current Medications Sodium Chloride (Iv Sodium Chloride 0.45%) 1,000 ml @ 100 mls/hr Q10H IV Last administered on 09/29/16t 08:18; Start 09/27/16 at 16:50 Ondansetron HCl (Zofran) 4 mg PRN Q6HRS PRN IV NAUSEA/VOMITING; Start 09/27/16 at 17:00 Prochlorperazine Edisylate (Compazine) 10 mg PRN Q6HRS PRN IV NAUSEA/VOMITING; Start 09/27/16 at 17:00 Prochlorperazine (Compazine) 25 mg PRN Q12HR PRN NE NAUSEA/VOMITING; Start at 17:00 Al Hydrox/Mg Hydrox/Simethicone (Mylanta Plus Xs) 30 ml PRN Q3HRS PRN PO HEARTBURN / GAS; Start 09/27/16 at 17:00 Calcium Carbonate/ Glycine (Tums) 500 mg PRN Q3HRS PRN PO UPSET STOMACH; Start 09/27/16 at 17:00 Oxycodone HCl (Roxicodone) 5 mg PRN Q3HRS PRN PO BREAKTHROUGH PAIN; Start 09/27 at 17:00 Morphine Sulfate 2 mg PRN Q2HR PRN IV MILD-MOD PAIN; Start 09/27/16 at 17:00 Magnesium Hydroxide (Milk Of Magnesia) 2,400 mg PRN Q12HR PRN PO CONSTIPATION; Start 09/27/16 at 17:00; Stop 09/27/16 at 17:15; Status DC Lactulose 20 gm PRN Q12HR PRN PO CONSTIPATION; Start 09/27/16 at 17:00; Stop at 17:15; Status DC Bisacodyl (Dulcolax Supp) 10 mg PRN DAILY PRN NE CONSTIPATION; Start 09/27/16 at 17:00; Stop 09/27/16 at 17:15; Status DC EZETIMIBE (Zetia) 10 mg DAILY PO Last administered on 09/29/16 08:18; Start at 09:00 Metoprolol Tartrate (Lopressor) 12.5 mg HS PO Last administered on 09/28/16 21 :32; Start 09/27/16 at 21:00 Atorvastatin Calcium (Lipitor) 80 mg QHS PO Last administered on 09/28/16 21: 28; Start 09/27/16 at 21:00 Glipizide (Glucotrol) 10 mg BIDBFRMEAL PO ; Start 09/27/16 at 17:00; Stop at 17:15; Status DC Multivitamins/ Calcium (Thera M Plus) 1 tab DAILY PO Last administered on 08:18; Start 09/28/16 at 09:00 Non-Formulary Medication 99 mg DAILY PO ; Start 09/28/16 at 09:00; Status UNV Famotidine (Pepcid) 20 mg BID PO Last administered on 09/29/16 08:18; Start at 21:00 Insulin Aspart (Novolog) 0-5 UNITS TIDWMEALS SQ ; Start 09/28/16 at 12:00 Dextrose 12.5 gm PRN Q15MIN PRN IV SEE COMMENTS; Start 09/28/16 at 09:45 Active Scripts Active Reported Potassium Gluconate 99 Mg Tablet 99 Mg PO DAILY Men's Multi-Vitamin (Multivitamin) 1 Each Tablet 1 Each PO DAILY Aspirin 325 Mg Tablet 1 Tab PO DAILY Ranitidine Hcl 300 Mg Tablet 1 Tab PO BID Glipizide 10 Mg Tablet 1 Tab PO BIDWMEALS Zetia (Ezetimibe) 10 Mg Tablet 1 Tab PO DAILY Atorvastatin Calcium 80 Mg Tablet 1 Tab PO HS Metoprolol Tartrate 25 Mg Tablet 12.5 Mg PO HS Vitals/I & O Vital Sign - Last 24 Hours 09/28/16 09/28/16 09/28/16 09/28/16 15:00 19:00 20:05 21:32 Temp 97.9 97.8 97.9 97.8 Pulse 56 63 59 Resp 18 B/P 135/49 140/48 135/56 Pulse Ox 96 94 O2 Delivery Room Air Room Air Room Air 09/28/16 09/29/16 09/29/16 09/29/16 23:00 03:00 07:00 07:50 Temp 98.4 98.1 97.4 98.4 98.1 97.4 Pulse 48 45 52 Resp B/P 123/48 115/62 139/49 Pulse Ox 97 95 96 O2 Delivery Room Air Room Air Room Air Room Air Intake and Output 09/28/16 09/28/16 09/29/16 15:00 23:00 07:00 Intake Total 2282 ml Output Total 1 ml Balance -1 ml 2282 ml MER ARREAGA MD Sep 29, 2016 11:59
[2016-09-29 15:00] VITALS: BP 151/40
[2016-09-29] MEDS ORDERED: ACETAMINOPHEN 325 MG TABLET. PO PRN (15:00)
--- NOTE | 2016-09-29 15:00 | PDOC ---
PROGRESS NOTES Chief Complaint Chief Complaint Wero(doco)lithiasis ASSESSMENT AND PLAN: 1. Choledocholithiasis: s/p ERCP w/ stent in [place] on 09/24. Surgery consult for consideration of CCY 2. Transaminitis: most likely 2/2 stones. worse compared to labs from [place]. monitor 3. CAD: hx 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. no acute issues. D/w Dr Koch: had recent cardiac W/U and is cleared for surgery 4. HTN 5 HLD: on statin (on hold) 6. DM: holding oral meds, in ISS 7. CRD3: appears stable. monitor 8. Anemia: normocytic, normochromic. suspect 2/2 chronic inflammation, CKD/ DM. check anemia labs 9. Prophylaxis: SCDs lap wero next week as per sx. dc ivf, labs tmr. check fobt History of Present Illness History of Present Illness no abd pain c/o black stool Vitals Vitals Vital Signs Date Time Temp Pulse Resp B/P Pulse Ox O2 Delivery O2 Flow Rate FiO2 09/29/16 11:00 97.5 69 18 137/48 94 Room Air 97.5 Physical Exam General: Alert, Oriented X3, Cooperative Heart: Regular rate, No murmurs Lungs: Clear Abdomen: Soft, No tenderness Extremities: No clubbing, No cyanosis Skin: No rashes Labs LABS Laboratory Tests Test 09/28/16 15:38 09/28/16 21:25 09/29/16 08:01 09/29/16 11:53 Glucose (Fingerstick) 150mg/dL (70-99) 154mg/dL (70-99) 143mg/dL (70-99) 193mg/dL (70-99) Review of Systems Review of Systems no fever, chills, sob or chest pain Assessment and Plan Assessmemt and Plan Problems Medical Problems: (1) Cholelithiasis Status: Acute Problems: Comment Review of Relevant I have reviewed the following items jose (where applicable) has been applied. Labs Laboratory Tests Test 09/27/16 17:25 09/28/16 10:30 09/28/16 11:40 09/28/16 12:37 White Blood Count 7.1x10^3/uL (4.0-11.0) 6.7x10^3/uL (4.0-11.0) Red Blood Count 3.83x10^6/uL (4.30-5.70) 4.04x10^6/uL (4.30-5.70) Hemoglobin 11.0g/dL (13.0-17.5) 11.5g/dL (13.0-17.5) Hematocrit 33.3% (39.0-53.0) 34.6% (39.0-53.0) Mean Corpuscular Volume 87fL (79-100) 86fL (79-100) Mean Corpuscular Hemoglobin 29pg (25-35) 29pg (25-35) Mean Corpuscular Hemoglobin Concent 33g/dL (31-37) 33g/dL (31-37) Red Cell Distribution Width 15.8% (11.5-14.5) 15.8% (11.5-14.5) Platelet Count 297x10^3/uL (140-400) 331x10^3/uL (140-400) Neutrophils (%) (Auto) 56% (31-73) 58% (31-73) Lymphocytes (%) (Auto) 27% (24-48) 27% (24-48) Monocytes (%) (Auto) 13% (0-9) 10% (0-9) Eosinophils (%) (Auto) 3% (0-3) 4% (0-3) Basophils (%) (Auto) 1% (0-3) 1% (0-3) Neutrophils # (Auto) 3.9x10^3uL (1.8-7.7) 3.9x10^3uL (1.8-7.7) Lymphocytes # (Auto) 1.9x10^3/uL (1.0-4.8) 1.8x10^3/uL (1.0-4.8) Monocytes # (Auto) 0.9x10^3/uL (0.0-1.1) 0.7x10^3/uL (0.0-1.1) Eosinophils # (Auto) 0.2x10^3/uL (0.0-0.7) 0.3x10^3/uL (0.0-0.7) Basophils # (Auto) 0.1x10^3/uL (0.0-0.2) 0.0x10^3/uL (0.0-0.2) Prothrombin Time 13.9SEC (11.7-14.0) Prothromb Time International Ratio 1.1 (0.8-1.1) Sodium Level 145mmol/L (136-145) 142mmol/L (136-145) Potassium Level 3.9mmol/L (3.5-5.1) 4.5mmol/L (3.5-5.1) Chloride Level 107mmol/L (98-107) 105mmol/L (98-107) Carbon Dioxide Level 27mmol/L (21-32) 27mmol/L (21-32) Anion Gap 11 (6-14) 10 (6-14) Blood Urea Nitrogen 24mg/dL (8-26) 17mg/dL (8-26) Creatinine 1.3mg/dL (0.7-1.3) 1.1mg/dL (0.7-1.3) Estimated GFR (Cockcroft-Gault) 54.3 65.8 BUN/Creatinine Ratio 18 (6-20) 15 (6-20) Glucose Level 128mg/dL (70-99) 128mg/dL (70-99) Calcium Level 9.5mg/dL (8.5-10.1) 9.3mg/dL (8.5-10.1) Phosphorus Level 4.2mg/dL (2.6-4.7) Magnesium Level 1.8mg/dL (1.8-2.4) Total Bilirubin 1.0mg/dL (0.2-1.0) 0.9mg/dL (0.2-1.0) Aspartate Amino Transf (AST/SGOT) 79U/L (15-37) 83U/L (15-37) Alanine Aminotransferase (ALT/SGPT) 95U/L (16-63) 86U/L (16-63) Alkaline Phosphatase 600U/L (46-116) 556U/L (46-116) Total Protein 7.7g/dL (6.4-8.2) 7.6g/dL (6.4-8.2) Albumin 2.9g/dL (3.4-5.0) 2.7g/dL (3.4-5.0) Albumin/Globulin Ratio 0.6 (1.0-1.7) 0.6 (1.0-1.7) Reticulocyte Count (auto) 1.8% (0.5-2.5) Iron Level 41ug/dL (65-175) Total Iron Binding Capacity 300ug/dL (250-450) Iron Saturation 14% (15-34) Ferritin 266ng/mL (26-388) Triglycerides Level 90mg/dL (0-150) Cholesterol Level 133mg/dL (0-200) LDL Cholesterol, Calculated 82mg/dL (0-100) VLDL Cholesterol, Calculated 18mg/dL (0-40) HDL Cholesterol 33mg/dL (40-60) Cholesterol/HDL Ratio Vitamin B12 Level 1261pg/mL (211-946) Folic Acid (LAB) 14.0ng/mL (>3.0) Glucose (Fingerstick) 113mg/dL (70-99) Clostridium difficile Toxin (PCR) Negative (Negative) Test 09/28/16 15:38 09/28/16 21:25 09/29/16 08:01 09/29/16 11:53 Glucose (Fingerstick) 150mg/dL (70-99) 154mg/dL (70-99) 143mg/dL (70-99) 193mg/dL (70-99) Laboratory Tests Test 09/28/16 15:38 09/28/16 21:25 09/29/16 08:01 09/29/16 11:53 Glucose (Fingerstick) 150mg/dL (70-99) 154mg/dL (70-99) 143mg/dL (70-99) 193mg/dL (70-99) Medications Current Medications Sodium Chloride (Iv Sodium Chloride 0.45%) 1,000 ml @ 100 mls/hr Q10H IV Last administered on 09/29/16t 08:18; Start 09/27/16 at 16:50 Ondansetron HCl (Zofran) 4 mg PRN Q6HRS PRN IV NAUSEA/VOMITING 1ST CHOICE; Start 09/27/16 at 17:00 Prochlorperazine Edisylate (Compazine) 10 mg PRN Q6HRS PRN IV NAUSEA/VOMITING 2ND CHOICE; Start 09/27/16 at 17:00 Prochlorperazine (Compazine) 25 mg PRN Q12HR PRN [place] NAUSEA/VOMITING; Start at 17:00 Al Hydrox/Mg Hydrox/Simethicone (Mylanta Plus Xs) 30 ml PRN Q3HRS PRN PO HEARTBURN / GAS; Start 09/27/16 at 17:00 Calcium Carbonate/ Glycine (Tums) 500 mg PRN Q3HRS PRN PO UPSET STOMACH; Start 09/27/16 at 17:00 Oxycodone HCl (Roxicodone) 5 mg PRN Q3HRS PRN PO BREAKTHROUGH PAIN; Start 09/27 at 17:00 Morphine Sulfate 2 mg PRN Q2HR PRN IV MILD-MOD PAIN; Start 09/27/16 at 17:00 Magnesium Hydroxide (Milk Of Magnesia) 2,400 mg PRN Q12HR PRN PO CONSTIPATION; Start 09/27/16 at 17:00; Stop 09/27/16 at 17:15; Status DC Lactulose 20 gm PRN Q12HR PRN PO CONSTIPATION; Start 09/27/16 at 17:00; Stop at 17:15; Status DC Bisacodyl (Dulcolax Supp) 10 mg PRN DAILY PRN [place] CONSTIPATION; Start 09/27/16 at 17:00; Stop 09/27/16 at 17:15; Status DC EZETIMIBE (Zetia) 10 mg DAILY PO Last administered on 09/29/16 08:18; Start at 09:00 Metoprolol Tartrate (Lopressor) 12.5 mg HS PO Last administered on 09/28/16 21 :32; Start 09/27/16 at 21:00 Atorvastatin Calcium (Lipitor) 80 mg QHS PO Last administered on 09/28/16 21: 28; Start 09/27/16 at 21:00 Glipizide (Glucotrol) 10 mg BIDBFRMEAL PO ; Start 09/27/16 at 17:00; Stop at 17:15; Status DC Multivitamins/ Calcium (Thera M Plus) 1 tab DAILY PO Last administered on 08:18; Start 09/28/16 at 09:00 Non-Formulary Medication 99 mg DAILY PO ; Start 09/28/16 at 09:00; Status UNV Famotidine (Pepcid) 20 mg BID PO Last administered on 09/29/16t 08:18; Start at 21:00 Insulin Aspart (Novolog) 0-5 UNITS TIDWMEALS SQ ; Start 09/28/16 at 12:00 Dextrose 12.5 gm PRN Q15MIN PRN IV SEE COMMENTS; Start 09/28/16 at 09:45 Active Scripts Active Reported Potassium Gluconate 99 Mg Tablet 99 Mg PO DAILY Men's Multi-Vitamin (Multivitamin) 1 Each Tablet 1 Each PO DAILY Aspirin 325 Mg Tablet 1 Tab PO DAILY Ranitidine Hcl 300 Mg Tablet 1 Tab PO BID Glipizide 10 Mg Tablet 1 Tab PO BIDWMEALS Zetia (Ezetimibe) 10 Mg Tablet 1 Tab PO DAILY Atorvastatin Calcium 80 Mg Tablet 1 Tab PO HS Metoprolol Tartrate 25 Mg Tablet 12.5 Mg PO HS Vitals/I & O Vital Sign - Last 24 Hours 09/28/16 09/28/16 09/28/16 09/28/16 15:00 19:00 20:05 21:32 Temp 97.9 97.8 97.9 97.8 Pulse 56 63 59 Resp 14 18 B/P 135/49 140/48 135/56 Pulse Ox 96 94 O2 Delivery Room Air Room Air Room Air 09/28/16 09/29/16 09/29/16 09/29/16 23:00 03:00 07:00 07:50 Temp 98.4 98.1 97.4 98.4 98.1 97.4 Pulse 48 45 52 Resp 18 18 18 B/P 123/48 115/62 139/49 Pulse Ox 97 95 96 O2 Delivery Room Air Room Air Room Air Room Air 09/29/16 11:00 Temp 97.5 97.5 Pulse 69 Resp 18 B/P 137/48 Pulse Ox 94 O2 Delivery Room Air Intake and Output 09/28/16 09/28/16 09/29/16 15:00 23:00 07:00 Intake Total 2282 ml Output Total 1 ml Balance -1 ml 2282 ml RICCARDO ORR MD Sep 29, 2016 15:00
[2016-09-29 19:30] VITALS: BP 132/46
[2016-09-29] MEDS: ATORVASTATIN CALCIUM 40 MG TABLET. PO SCH (20:31)
[2016-09-29] MEDS: METOPROLOL TART IMMED RELEASE 25 MG TABLET PO SCH (20:37)
[2016-09-29 23:40] VITALS: BP 124/35
[2016-09-30 03:45] VITALS: BP 115/30
[2016-09-30 06:50] LABS: BASO % 1 % (0-3); EOS % 5 % (0-3); HEMOGLOBIN 10.5 g/dL (13.0-17.5); LYMPH # 1.8 x10^3/uL (1.0-4.8); LYMPH % 26 % (24-48); MEAN CORPUSCULAR HEMOGLOBIN 29 pg (25-35); MEAN CORPUSCULAR HGB CONC 33 g/dL (31-37); MEAN CORPUSCULAR VOLUME 87 fL (79-100); MONO % 12 % (0-9); NEUT % 57 % (31-73); PLATELET COUNT 242 x10^3/uL (140-400); RED BLOOD COUNT 3.69 x10^6/uL (4.30-5.70); RED CELL DISTRIBUTION WIDTH 15.6 % (11.5-14.5); WHITE BLOOD COUNT 6.9 x10^3/uL (4.0-11.0)
[2016-09-30 06:59] LABS: CREATININE 1.2 mg/dL (0.7-1.3); GFR 59.5; POTASSIUM 4.3 mmol/L (3.5-5.1)
[2016-09-30 07:00] VITALS: BP 130/76
[2016-09-30] MEDS: FAMOTIDINE 20 MG TABLET. PO SCH ×2 (08:45→21:28)
[2016-09-30] MEDS: EZETIMIBE 10 MG TABLET PO SCH (08:46)
[2016-09-30] MEDS: INSULIN ASPART 300 UNITS/3 ML INSULN.PEN SQ SCH ×3 (08:57→17:00)
--- NOTE | 2016-09-30 09:56 | PDOC ---
PROGRESS NOTES Subjective Subjective feels well, no pain Objective Objective Vital Signs Date Time Temp Pulse Resp B/P Pulse Ox O2 Delivery O2 Flow Rate FiO2 09/30/16 08:00 Room Air 09/30/16 07:00 97.8 60 18 130/76 96 97.8 Intake and Output 09/30/16 07:00 Intake Total 520 ml Balance 520 ml Intake Oral 420 ml IV Total 100 ml # Voids 6 # Bowel Movements 2 Physical Exam Abdomen: Soft, No tenderness Heart: Regular rate Extremities: No clubbing, No cyanosis General: Alert, Oriented X3, Cooperative HEENT: Atraumatic Lungs: Clear to auscultation Neuro: Normal speech Psych/Mental Status: Mental status NL Assessment Assessment Problems Medical Problems: (1) Cholelithiasis Status: Acute Plan Plan of Care Dr Doyle to evaluate tomorrow Comment Review of Relevant I have reviewed the following items jose (where applicable) has been applied. Labs Laboratory Tests Test 09/28/16 10:30 09/28/16 11:40 09/28/16 12:37 09/28/16 15:38 White Blood Count 6.7x10^3/uL (4.0-11.0) Red Blood Count 4.04x10^6/uL (4.30-5.70) Hemoglobin 11.5g/dL (13.0-17.5) Hematocrit 34.6% (39.0-53.0) Mean Corpuscular Volume 86fL (79-100) Mean Corpuscular Hemoglobin 29pg (25-35) Mean Corpuscular Hemoglobin Concent 33g/dL (31-37) Red Cell Distribution Width 15.8% (11.5-14.5) Platelet Count 331x10^3/uL (140-400) Neutrophils (%) (Auto) 58% (31-73) Lymphocytes (%) (Auto) 27% (24-48) Monocytes (%) (Auto) 10% (0-9) Eosinophils (%) (Auto) 4% (0-3) Basophils (%) (Auto) 1% (0-3) Neutrophils # (Auto) 3.9x10^3uL (1.8-7.7) Lymphocytes # (Auto) 1.8x10^3/uL (1.0-4.8) Monocytes # (Auto) 0.7x10^3/uL (0.0-1.1) Eosinophils # (Auto) 0.3x10^3/uL (0.0-0.7) Basophils # (Auto) 0.0x10^3/uL (0.0-0.2) Reticulocyte Count (auto) 1.8% (0.5-2.5) Sodium Level 142mmol/L (136-145) Potassium Level 4.5mmol/L (3.5-5.1) Chloride Level 105mmol/L (98-107) Carbon Dioxide Level 27mmol/L (21-32) Anion Gap 10 (6-14) Blood Urea Nitrogen 17mg/dL (8-26) Creatinine 1.1mg/dL (0.7-1.3) Estimated GFR (Cockcroft-Gault) 65.8 BUN/Creatinine Ratio 15 (6-20) Glucose Level 128mg/dL (70-99) Calcium Level 9.3mg/dL (8.5-10.1) Iron Level 41ug/dL (65-175) Total Iron Binding Capacity 300ug/dL (250-450) Iron Saturation 14% (15-34) Ferritin 266ng/mL (26-388) Total Bilirubin 0.9mg/dL (0.2-1.0) Aspartate Amino Transf (AST/SGOT) 83U/L (15-37) Alanine Aminotransferase (ALT/SGPT) 86U/L (16-63) Alkaline Phosphatase 556U/L (46-116) Total Protein 7.6g/dL (6.4-8.2) Albumin 2.7g/dL (3.4-5.0) Albumin/Globulin Ratio 0.6 (1.0-1.7) Triglycerides Level 90mg/dL (0-150) Cholesterol Level 133mg/dL (0-200) LDL Cholesterol, Calculated 82mg/dL (0-100) VLDL Cholesterol, Calculated 18mg/dL (0-40) HDL Cholesterol 33mg/dL (40-60) Cholesterol/HDL Ratio Vitamin B12 Level 1261pg/mL (211-946) Folic Acid (LAB) 14.0ng/mL (>3.0) Glucose (Fingerstick) 113mg/dL (70-99) 150mg/dL (70-99) Clostridium difficile Toxin (PCR) Negative (Negative) Test 09/28/16 21:25 09/29/16 08:01 09/29/16 11:53 09/29/16 16:01 Glucose (Fingerstick) 154mg/dL (70-99) 143mg/dL (70-99) 193mg/dL (70-99) 182mg/dL (70-99) Test 09/29/16 20:58 09/30/16 06:00 09/30/16 07:11 Glucose (Fingerstick) 208mg/dL (70-99) 155mg/dL (70-99) White Blood Count 6.9x10^3/uL (4.0-11.0) Red Blood Count 3.69x10^6/uL (4.30-5.70) Hemoglobin 10.5g/dL (13.0-17.5) Hematocrit 32.0% (39.0-53.0) Mean Corpuscular Volume 87fL (79-100) Mean Corpuscular Hemoglobin 29pg (25-35) Mean Corpuscular Hemoglobin Concent 33g/dL (31-37) Red Cell Distribution Width 15.6% (11.5-14.5) Platelet Count 242x10^3/uL (140-400) Neutrophils (%) (Auto) 57% (31-73) Lymphocytes (%) (Auto) 26% (24-48) Monocytes (%) (Auto) 12% (0-9) Eosinophils (%) (Auto) 5% (0-3) Basophils (%) (Auto) 1% (0-3) Neutrophils # (Auto) 3.9x10^3uL (1.8-7.7) Lymphocytes # (Auto) 1.8x10^3/uL (1.0-4.8) Monocytes # (Auto) 0.8x10^3/uL (0.0-1.1) Eosinophils # (Auto) 0.3x10^3/uL (0.0-0.7) Basophils # (Auto) 0.0x10^3/uL (0.0-0.2) Sodium Level 143mmol/L (136-145) Potassium Level 4.3mmol/L (3.5-5.1) Chloride Level 107mmol/L (98-107) Carbon Dioxide Level 28mmol/L (21-32) Anion Gap 8 (6-14) Blood Urea Nitrogen 15mg/dL (8-26) Creatinine 1.2mg/dL (0.7-1.3) Estimated GFR (Cockcroft-Gault) 59.5 Glucose Level 165mg/dL (70-99) Calcium Level 9.0mg/dL (8.5-10.1) Laboratory Tests Test 09/29/16 11:53 09/29/16 16:01 09/29/16 20:58 09/30/16 06:00 Glucose (Fingerstick) 193mg/dL (70-99) 182mg/dL (70-99) 208mg/dL (70-99) White Blood Count 6.9x10^3/uL (4.0-11.0) Red Blood Count 3.69x10^6/uL (4.30-5.70) Hemoglobin 10.5g/dL (13.0-17.5) Hematocrit 32.0% (39.0-53.0) Mean Corpuscular Volume 87fL (79-100) Mean Corpuscular Hemoglobin 29pg (25-35) Mean Corpuscular Hemoglobin Concent 33g/dL (31-37) Red Cell Distribution Width 15.6% (11.5-14.5) Platelet Count 242x10^3/uL (140-400) Neutrophils (%) (Auto) 57% (31-73) Lymphocytes (%) (Auto) 26% (24-48) Monocytes (%) (Auto) 12% (0-9) Eosinophils (%) (Auto) 5% (0-3) Basophils (%) (Auto) 1% (0-3) Neutrophils # (Auto) 3.9x10^3uL (1.8-7.7) Lymphocytes # (Auto) 1.8x10^3/uL (1.0-4.8) Monocytes # (Auto) 0.8x10^3/uL (0.0-1.1) Eosinophils # (Auto) 0.3x10^3/uL (0.0-0.7) Basophils # (Auto) 0.0x10^3/uL (0.0-0.2) Sodium Level 143mmol/L (136-145) Potassium Level 4.3mmol/L (3.5-5.1) Chloride Level 107mmol/L (98-107) Carbon Dioxide Level 28mmol/L (21-32) Anion Gap 8 (6-14) Blood Urea Nitrogen 15mg/dL (8-26) Creatinine 1.2mg/dL (0.7-1.3) Estimated GFR (Cockcroft-Gault) 59.5 Glucose Level 165mg/dL (70-99) Calcium Level 9.0mg/dL (8.5-10.1) Test 09/30/16 07:11 Glucose (Fingerstick) 155mg/dL (70-99) Medications Current Medications Sodium Chloride (Iv Sodium Chloride 0.45%) 1,000 ml @ 100 mls/hr Q10H IV Last administered on 09/29/16t 08:18; Start 09/27/16 at 16:50; Stop 09/29/16 at 14:58 ; Status DC Ondansetron HCl (Zofran) 4 mg PRN Q6HRS PRN IV NAUSEA/VOMITING 1ST CHOICE; Start 09/27/16 at 17:00 Prochlorperazine Edisylate (Compazine) 10 mg PRN Q6HRS PRN IV NAUSEA/VOMITING 2ND CHOICE; Start 09/27/16 at 17:00 Prochlorperazine (Compazine) 25 mg PRN Q12HR PRN [place] NAUSEA/VOMITING; Start at 17:00 Al Hydrox/Mg Hydrox/Simethicone (Mylanta Plus Xs) 30 ml PRN Q3HRS PRN PO HEARTBURN / GAS; Start 09/27/16 at 17:00 Calcium Carbonate/ Glycine (Tums) 500 mg PRN Q3HRS PRN PO UPSET STOMACH; Start 09/27/16 at 17:00 Oxycodone HCl (Roxicodone) 5 mg PRN Q3HRS PRN PO BREAKTHROUGH PAIN; Start 09/27 at 17:00 Morphine Sulfate 2 mg PRN Q2HR PRN IV MILD-MOD PAIN; Start 09/27/16 at 17:00 Magnesium Hydroxide (Milk Of Magnesia) 2,400 mg PRN Q12HR PRN PO CONSTIPATION; Start 09/27/16 at 17:00; Stop 09/27/16 at 17:15; Status DC Lactulose 20 gm PRN Q12HR PRN PO CONSTIPATION; Start 09/27/16 at 17:00; Stop at 17:15; Status DC Bisacodyl (Dulcolax Supp) 10 mg PRN DAILY PRN [place] CONSTIPATION; Start 09/27/16 at 17:00; Stop 09/27/16 at 17:15; Status DC EZETIMIBE (Zetia) 10 mg DAILY PO Last administered on 09/30/16 08:46; Start at 09:00 Metoprolol Tartrate (Lopressor) 12.5 mg HS PO Last administered on 09/29/16 20 :37; Start 09/27/16 at 21:00 Atorvastatin Calcium (Lipitor) 80 mg QHS PO Last administered on 09/29/16 20: 31; Start 09/27/16 at 21:00 Glipizide (Glucotrol) 10 mg BIDBFRMEAL PO ; Start 09/27/16 at 17:00; Stop at 17:15; Status DC Multivitamins/ Calcium (Thera M Plus) 1 tab DAILY PO Last administered on 20:31; Start 09/28/16 at 09:00 Non-Formulary Medication 99 mg DAILY PO ; Start 09/28/16 at 09:00; Status UNV Famotidine (Pepcid) 20 mg BID PO Last administered on 09/30/16 08:45; Start at 21:00 Insulin Aspart (Novolog) 0-5 UNITS TIDWMEALS SQ Last administered on 09/30/16 08:57; Start 09/28/16 at 12:00 Dextrose 12.5 gm PRN Q15MIN PRN IV SEE COMMENTS; Start 09/28/16 at 09:45 Acetaminophen (Tylenol) 650 mg PRN Q6HRS PRN PO MILD PAIN / TEMP; Start at 15:00 Active Scripts Active Reported Potassium Gluconate 99 Mg Tablet 99 Mg PO DAILY Men's Multi-Vitamin (Multivitamin) 1 Each Tablet 1 Each PO DAILY Aspirin 325 Mg Tablet 1 Tab PO DAILY Ranitidine Hcl 300 Mg Tablet 1 Tab PO BID Glipizide 10 Mg Tablet 1 Tab PO BIDWMEALS Zetia (Ezetimibe) 10 Mg Tablet 1 Tab PO DAILY Atorvastatin Calcium 80 Mg Tablet 1 Tab PO HS Metoprolol Tartrate 25 Mg Tablet 12.5 Mg PO HS Vitals/I & O Vital Sign - Last 24 Hours 09/29/16 09/29/16 09/29/16 09/29/16 11:00 15:00 19:30 20:37 Temp 97.5 97.4 98.0 97.5 97.4 98.0 Pulse 69 64 66 64 Resp 18 18 16 B/P 137/48 151/40 132/46 151/40 Pulse Ox 94 94 96 O2 Delivery Room Air Room Air Room Air 09/29/16 09/29/16 09/30/16 09/30/16 22:00 23:40 03:45 07:00 Temp 98.5 98.3 97.8 98.5 98.3 97.8 Pulse 70 51 60 Resp 14 18 B/P 124/35 115/30 130/76 Pulse Ox 98 98 96 O2 Delivery Room Air Room Air Room Air 09/30/16 08:00 O2 Delivery Room Air Intake and Output 09/29/16 09/29/16 09/30/16 15:00 23:00 07:00 Intake Total 100 ml 420 ml Balance 100 ml 420 ml MER ARREAGA MD Sep 30, 2016 09:56
--- NOTE | 2016-09-30 10:57 | PDOC ---
PROGRESS NOTES Chief Complaint Chief Complaint 1. Multiple symptomatic cholelithiasis with choledocholithiasis - records from outside hospital reviewed 2. s/p ERCP with sphincterotomy and stent placement 3. Obesity 4. HTN, NIDDM, dyslipidemia 5. 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, [facility] met[facility] History of Present Illness History of Present Illness no abd pain not requiring IV pain meds NO white ct no fever Planned for lap wero torrey by GS PLAN: NPO post MN LAbs look ok Pt looks ok LAp wero torrey Dw pt and and RN Vitals Vitals Vital Signs Date Time Temp Pulse Resp B/P Pulse Ox O2 Delivery O2 Flow Rate FiO2 09/30/16 08:00 Room Air 09/30/16 07:00 97.8 60 18 130/76 96 97.8 Physical Exam General: Alert, Oriented X3, Cooperative Heart: Regular rate Lungs: Clear Abdomen: Soft, No tenderness Extremities: No clubbing, No cyanosis Skin: No rashes Labs LABS Laboratory Tests Test 09/29/16 11:53 09/29/16 16:01 09/29/16 20:58 09/30/16 06:00 Glucose (Fingerstick) 193mg/dL (70-99) 182mg/dL (70-99) 208mg/dL (70-99) White Blood Count 6.9x10^3/uL (4.0-11.0) Red Blood Count 3.69x10^6/uL (4.30-5.70) Hemoglobin 10.5g/dL (13.0-17.5) Hematocrit 32.0% (39.0-53.0) Mean Corpuscular Volume 87fL (79-100) Mean Corpuscular Hemoglobin 29pg (25-35) Mean Corpuscular Hemoglobin Concent 33g/dL (31-37) Red Cell Distribution Width 15.6% (11.5-14.5) Platelet Count 242x10^3/uL (140-400) Neutrophils (%) (Auto) 57% (31-73) Lymphocytes (%) (Auto) 26% (24-48) Monocytes (%) (Auto) 12% (0-9) Eosinophils (%) (Auto) 5% (0-3) Basophils (%) (Auto) 1% (0-3) Neutrophils # (Auto) 3.9x10^3uL (1.8-7.7) Lymphocytes # (Auto) 1.8x10^3/uL (1.0-4.8) Monocytes # (Auto) 0.8x10^3/uL (0.0-1.1) Eosinophils # (Auto) 0.3x10^3/uL (0.0-0.7) Basophils # (Auto) 0.0x10^3/uL (0.0-0.2) Sodium Level 143mmol/L (136-145) Potassium Level 4.3mmol/L (3.5-5.1) Chloride Level 107mmol/L (98-107) Carbon Dioxide Level 28mmol/L (21-32) Anion Gap 8 (6-14) Blood Urea Nitrogen 15mg/dL (8-26) Creatinine 1.2mg/dL (0.7-1.3) Estimated GFR (Cockcroft-Gault) 59.5 Glucose Level 165mg/dL (70-99) Calcium Level 9.0mg/dL (8.5-10.1) Test 09/30/16 07:11 Glucose (Fingerstick) 155mg/dL (70-99) Review of Systems Review of Systems denies abd pain, nausea, emesis, positive blackish stools (LFTs, choledocholithiasis) Assessment and Plan Assessmemt and Plan Problems Medical Problems: (1) Cholelithiasis Status: Acute Problems: Comment Review of Relevant I have reviewed the following items jose (where applicable) has been applied. Labs Laboratory Tests Test 09/28/16 11:40 09/28/16 12:37 09/28/16 15:38 09/28/16 21:25 Glucose (Fingerstick) 113mg/dL (70-99) 150mg/dL (70-99) 154mg/dL (70-99) Clostridium difficile Toxin (PCR) Negative (Negative) Test 09/29/16 08:01 09/29/16 11:53 09/29/16 16:01 09/29/16 20:58 Glucose (Fingerstick) 143mg/dL (70-99) 193mg/dL (70-99) 182mg/dL (70-99) 208mg/dL (70-99) Test 09/30/16 06:00 09/30/16 07:11 White Blood Count 6.9x10^3/uL (4.0-11.0) Red Blood Count 3.69x10^6/uL (4.30-5.70) Hemoglobin 10.5g/dL (13.0-17.5) Hematocrit 32.0% (39.0-53.0) Mean Corpuscular Volume 87fL (79-100) Mean Corpuscular Hemoglobin 29pg (25-35) Mean Corpuscular Hemoglobin Concent 33g/dL (31-37) Red Cell Distribution Width 15.6% (11.5-14.5) Platelet Count 242x10^3/uL (140-400) Neutrophils (%) (Auto) 57% (31-73) Lymphocytes (%) (Auto) 26% (24-48) Monocytes (%) (Auto) 12% (0-9) Eosinophils (%) (Auto) 5% (0-3) Basophils (%) (Auto) 1% (0-3) Neutrophils # (Auto) 3.9x10^3uL (1.8-7.7) Lymphocytes # (Auto) 1.8x10^3/uL (1.0-4.8) Monocytes # (Auto) 0.8x10^3/uL (0.0-1.1) Eosinophils # (Auto) 0.3x10^3/uL (0.0-0.7) Basophils # (Auto) 0.0x10^3/uL (0.0-0.2) Sodium Level 143mmol/L (136-145) Potassium Level 4.3mmol/L (3.5-5.1) Chloride Level 107mmol/L (98-107) Carbon Dioxide Level 28mmol/L (21-32) Anion Gap 8 (6-14) Blood Urea Nitrogen 15mg/dL (8-26) Creatinine 1.2mg/dL (0.7-1.3) Estimated GFR (Cockcroft-Gault) 59.5 Glucose Level 165mg/dL (70-99) Calcium Level 9.0mg/dL (8.5-10.1) Glucose (Fingerstick) 155mg/dL (70-99) Laboratory Tests Test 09/29/16 11:53 09/29/16 16:01 09/29/16 20:58 09/30/16 06:00 Glucose (Fingerstick) 193mg/dL (70-99) 182mg/dL (70-99) 208mg/dL (70-99) White Blood Count 6.9x10^3/uL (4.0-11.0) Red Blood Count 3.69x10^6/uL (4.30-5.70) Hemoglobin 10.5g/dL (13.0-17.5) Hematocrit 32.0% (39.0-53.0) Mean Corpuscular Volume 87fL (79-100) Mean Corpuscular Hemoglobin 29pg (25-35) Mean Corpuscular Hemoglobin Concent 33g/dL (31-37) Red Cell Distribution Width 15.6% (11.5-14.5) Platelet Count 242x10^3/uL (140-400) Neutrophils (%) (Auto) 57% (31-73) Lymphocytes (%) (Auto) 26% (24-48) Monocytes (%) (Auto) 12% (0-9) Eosinophils (%) (Auto) 5% (0-3) Basophils (%) (Auto) 1% (0-3) Neutrophils # (Auto) 3.9x10^3uL (1.8-7.7) Lymphocytes # (Auto) 1.8x10^3/uL (1.0-4.8) Monocytes # (Auto) 0.8x10^3/uL (0.0-1.1) Eosinophils # (Auto) 0.3x10^3/uL (0.0-0.7) Basophils # (Auto) 0.0x10^3/uL (0.0-0.2) Sodium Level 143mmol/L (136-145) Potassium Level 4.3mmol/L (3.5-5.1) Chloride Level 107mmol/L (98-107) Carbon Dioxide Level 28mmol/L (21-32) Anion Gap 8 (6-14) Blood Urea Nitrogen 15mg/dL (8-26) Creatinine 1.2mg/dL (0.7-1.3) Estimated GFR (Cockcroft-Gault) 59.5 Glucose Level 165mg/dL (70-99) Calcium Level 9.0mg/dL (8.5-10.1) Test 09/30/16 07:11 Glucose (Fingerstick) 155mg/dL (70-99) Medications Current Medications Sodium Chloride (Iv Sodium Chloride 0.45%) 1,000 ml @ 100 mls/hr Q10H IV Last administered on 09/29/16 08:18; Start 09/27/16 at 16:50; Stop 09/29/16 at 14:58 ; Status DC Ondansetron HCl (Zofran) 4 mg PRN Q6HRS PRN IV NAUSEA/VOMITING 1ST CHOICE; Start 09/27/16 at 17:00 Prochlorperazine Edisylate (Compazine) 10 mg PRN Q6HRS PRN IV NAUSEA/VOMITING 2ND CHOICE; Start 09/27/16 at 17:00 Prochlorperazine (Compazine) 25 mg PRN Q12HR PRN DE NAUSEA/VOMITING; Start at 17:00 Al Hydrox/Mg Hydrox/Simethicone (Mylanta Plus Xs) 30 ml PRN Q3HRS PRN PO HEARTBURN / GAS; Start 09/27/16 at 17:00 Calcium Carbonate/ Glycine (Tums) 500 mg PRN Q3HRS PRN PO UPSET STOMACH; Start 09/27/16 at 17:00 Oxycodone HCl (Roxicodone) 5 mg PRN Q3HRS PRN PO BREAKTHROUGH PAIN; Start 09/27 at 17:00 Morphine Sulfate 2 mg PRN Q2HR PRN IV MILD-MOD PAIN; Start 09/27/16 at 17:00 Magnesium Hydroxide (Milk Of Magnesia) 2,400 mg PRN Q12HR PRN PO CONSTIPATION; Start 09/27/16 at 17:00; Stop 09/27/16 at 17:15; Status DC Lactulose 20 gm PRN Q12HR PRN PO CONSTIPATION; Start 09/27/16 at 17:00; Stop at 17:15; Status DC Bisacodyl (Dulcolax Supp) 10 mg PRN DAILY PRN DE CONSTIPATION; Start 09/27/16 at 17:00; Stop 09/27/16 at 17:15; Status DC EZETIMIBE (Zetia) 10 mg DAILY PO Last administered on 09/30/16 08:46; Start at 09:00 Metoprolol Tartrate (Lopressor) 12.5 mg HS PO Last administered on 09/29/16 20 :37; Start 09/27/16 at 21:00 Atorvastatin Calcium (Lipitor) 80 mg QHS PO Last administered on 09/29/16 20: 31; Start 09/27/16 at 21:00 Glipizide (Glucotrol) 10 mg BIDBFRMEAL PO ; Start 09/27/16 at 17:00; Stop at 17:15; Status DC Multivitamins/ Calcium (Thera M Plus) 1 tab DAILY PO Last administered on 20:31; Start 09/28/16 at 09:00 Non-Formulary Medication 99 mg DAILY PO ; Start 09/28/16 at 09:00; Status UNV Famotidine (Pepcid) 20 mg BID PO Last administered on 09/30/16 08:45; Start at 21:00 Insulin Aspart (Novolog) 0-5 UNITS TIDWMEALS SQ Last administered on 09/30/16 08:57; Start 09/28/16 at 12:00 Dextrose 12.5 gm PRN Q15MIN PRN IV SEE COMMENTS; Start 09/28/16 at 09:45 Acetaminophen (Tylenol) 650 mg PRN Q6HRS PRN PO MILD PAIN / TEMP; Start at 15:00 Active Scripts Active Reported Potassium Gluconate 99 Mg Tablet 99 Mg PO DAILY Men's Multi-Vitamin (Multivitamin) 1 Each Tablet 1 Each PO DAILY Aspirin 325 Mg Tablet 1 Tab PO DAILY Ranitidine Hcl 300 Mg Tablet 1 Tab PO BID Glipizide 10 Mg Tablet 1 Tab PO BIDWMEALS Zetia (Ezetimibe) 10 Mg Tablet 1 Tab PO DAILY Atorvastatin Calcium 80 Mg Tablet 1 Tab PO HS Metoprolol Tartrate 25 Mg Tablet 12.5 Mg PO HS Vitals/I & O Vital Sign - Last 24 Hours 09/29/16 09/29/16 09/29/16 09/29/16 11:00 15:00 19:30 20:37 Temp 97.5 97.4 98.0 97.5 97.4 98.0 Pulse 69 64 66 64 Resp 18 18 16 B/P 137/48 151/40 132/46 151/40 Pulse Ox 94 94 96 O2 Delivery Room Air Room Air Room Air 09/29/16 09/29/16 09/30/16 09/30/16 22:00 23:40 03:45 07:00 Temp 98.5 98.3 97.8 98.5 98.3 97.8 Pulse 70 51 60 Resp 14 14 18 B/P 124/35 115/30 130/76 Pulse Ox 98 98 96 O2 Delivery Room Air Room Air Room Air 09/30/16 08:00 O2 Delivery Room Air Intake and Output 09/29/16 09/29/16 09/30/16 15:00 23:00 07:00 Intake Total 100 ml 420 ml Balance 100 ml 420 ml SANTHOSH AGUILAR MD Sep 30, 2016 10:57
[2016-09-30 11:00] VITALS: BP_SYST 120; BP_SYST 130; BP_DIAS 47; BP_DIAS 76
[2016-09-30 11:58] LABS: ALBUMIN 2.6 g/dL (3.4-5.0); DIRECT BILIRUBIN 0.4 mg/dL (0.0-0.2); TOTAL BILIRUBIN 0.6 mg/dL (0.2-1.0); TOTAL PROTEIN 6.2 g/dL (6.4-8.2)
[2016-09-30 15:00] VITALS: BP 137/84
[2016-09-30 19:00] VITALS: BP 135/59
[2016-09-30] MEDS: ATORVASTATIN CALCIUM 40 MG TABLET. PO SCH (21:27)
[2016-09-30] MEDS: METOPROLOL TART IMMED RELEASE 25 MG TABLET PO SCH (21:28)
[2016-09-30 23:16] VITALS: BP 147/68
[2016-10-01] VITALS (8 sets, daily range): BP systolic 126–168; BP diastolic 45–76
[2016-10-01 07:04] LABS: ALBUMIN 2.7 g/dL (3.4-5.0); DIRECT BILIRUBIN 0.4 mg/dL (0.0-0.2); TOTAL BILIRUBIN 0.7 mg/dL (0.2-1.0); TOTAL PROTEIN 7.1 g/dL (6.4-8.2)
[2016-10-01] MEDS: INSULIN ASPART 300 UNITS/3 ML INSULN.PEN SQ SCH ×3 (08:00→17:00)
[2016-10-01] MEDS: FAMOTIDINE 20 MG TABLET. PO SCH ×2 (09:00→20:30)
[2016-10-01] MEDS: MULTIVITAMIN with MINERAL TABLET. PO SCH (09:00)
[2016-10-01] MEDS: EZETIMIBE 10 MG TABLET PO SCH (09:00)
--- NOTE | 2016-10-01 09:11 | PDOC ---
LESLIE LOUISE [employer] 10/01/16 0911: SURGICAL PROGRESS NOTE Subjective npo since mn no pain Vital Signs Vital Signs Date Time Temp Pulse Resp B/P Pulse Ox O2 Delivery O2 Flow Rate FiO2 10/01/16 07:00 98.2 62 18 134/45 94 Room Air 98.2 I&O Intake and Output 10/01/16 07:00 Intake Total 1240 ml Balance 1240 ml Intake Oral 1240 ml # Voids 6 General: Alert, Oriented X3, Cooperative, No acute distress Abdomen: Soft, No tenderness Labs Laboratory Tests Test 09/29/16 11:53 09/29/16 16:01 09/29/16 20:58 09/30/16 06:00 Glucose (Fingerstick) 193mg/dL (70-99) 182mg/dL (70-99) 208mg/dL (70-99) White Blood Count 6.9x10^3/uL (4.0-11.0) Red Blood Count 3.69x10^6/uL (4.30-5.70) Hemoglobin 10.5g/dL (13.0-17.5) Hematocrit 32.0% (39.0-53.0) Mean Corpuscular Volume 87fL (79-100) Mean Corpuscular Hemoglobin 29pg (25-35) Mean Corpuscular Hemoglobin Concent 33g/dL (31-37) Red Cell Distribution Width 15.6% (11.5-14.5) Platelet Count 242x10^3/uL (140-400) Neutrophils (%) (Auto) 57% (31-73) Lymphocytes (%) (Auto) 26% (24-48) Monocytes (%) (Auto) 12% (0-9) Eosinophils (%) (Auto) 5% (0-3) Basophils (%) (Auto) 1% (0-3) Neutrophils # (Auto) 3.9x10^3uL (1.8-7.7) Lymphocytes # (Auto) 1.8x10^3/uL (1.0-4.8) Monocytes # (Auto) 0.8x10^3/uL (0.0-1.1) Eosinophils # (Auto) 0.3x10^3/uL (0.0-0.7) Basophils # (Auto) 0.0x10^3/uL (0.0-0.2) Sodium Level 143mmol/L (136-145) Potassium Level 4.3mmol/L (3.5-5.1) Chloride Level 107mmol/L (98-107) Carbon Dioxide Level 28mmol/L (21-32) Anion Gap 8 (6-14) Blood Urea Nitrogen 15mg/dL (8-26) Creatinine 1.2mg/dL (0.7-1.3) Estimated GFR (Cockcroft-Gault) 59.5 Glucose Level 165mg/dL (70-99) Calcium Level 9.0mg/dL (8.5-10.1) Total Bilirubin 0.6mg/dL (0.2-1.0) Direct Bilirubin 0.4mg/dL (0.0-0.2) Aspartate Amino Transf (AST/SGOT) 57U/L (15-37) Alanine Aminotransferase (ALT/SGPT) 69U/L (16-63) Alkaline Phosphatase 430U/L (46-116) Total Protein 6.2g/dL (6.4-8.2) Albumin 2.6g/dL (3.4-5.0) Test 09/30/16 07:11 09/30/16 11:04 09/30/16 16:34 09/30/16 21:08 Glucose (Fingerstick) 155mg/dL (70-99) 224mg/dL (70-99) 146mg/dL (70-99) 196mg/dL (70-99) Test 10/01/16 06:20 Total Bilirubin 0.7mg/dL (0.2-1.0) Direct Bilirubin 0.4mg/dL (0.0-0.2) Aspartate Amino Transf (AST/SGOT) 54U/L (15-37) Alanine Aminotransferase (ALT/SGPT) 62U/L (16-63) Alkaline Phosphatase 391U/L (46-116) Total Protein 7.1g/dL (6.4-8.2) Albumin 2.7g/dL (3.4-5.0) Laboratory Tests Test 09/30/16 11:04 09/30/16 16:34 09/30/16 21:08 10/01/16 06:20 Glucose (Fingerstick) 224mg/dL (70-99) 146mg/dL (70-99) 196mg/dL (70-99) Total Bilirubin 0.7mg/dL (0.2-1.0) Direct Bilirubin 0.4mg/dL (0.0-0.2) Aspartate Amino Transf (AST/SGOT) 54U/L (15-37) Alanine Aminotransferase (ALT/SGPT) 62U/L (16-63) Alkaline Phosphatase 391U/L (46-116) Total Protein 7.1g/dL (6.4-8.2) Albumin 2.7g/dL (3.4-5.0) Problem List Problems Medical Problems: (1) Cholelithiasis Status: Acute Assessment/Plan cholecystitis Dr Doyle plans lap vs open cholecystectomy today Problems: ISABEL DOYLE MD 10/01/16 1314: SURGICAL PROGRESS NOTE Assessment/Plan Pt seen and examined. Agree with Ms. Louise's note Pt denies pain since CBD stent placed in [place] NTTP, well healed surgical scars in RLQ ([place], [place]) MRCP concerning for possible gallstone erosion into duodenum TO OR for lap vs open cholecystectomy with grams possible duodenal fistula repair R/B/A d/w pt and pt's family extensively (one of pt's daughter is nurse and has worked for gen surgeon previously) Problems: LESLIE LOUISE APRN Oct 01, 2016 09:11 ISABEL DOYLE MD Oct 01, 2016 13:14
[2016-10-01] MEDS ORDERED: PROPOFOL 100 ML IV ONE (10:50)
[2016-10-01] MEDS ORDERED: ROCURONIUM 50 MG/5 ML VIAL. ONE ×2 (10:50→13:50)
[2016-10-01] MEDS ORDERED: LIDOCAINE 2% PF Vial for OR 5 ML VIAL. ONE (10:50)
[2016-10-01] MEDS ORDERED: ONDANSETRON PF 4 MG/2 ML VIAL. ONE (11:45)
[2016-10-01] MEDS ORDERED: KETOROLAC 30 MG/ML SYRINGE FOR OR. INJ ONE (11:45)
[2016-10-01] MEDS ORDERED: DEXAMETHASONE SOD PHOS 20 MG/5 ML VIAL. ONE (11:45)
[2016-10-01] MEDS ORDERED: FENTANYL PF 100 MCG/2 ML VIAL. ONE ×3 (11:45→14:13)
[2016-10-01] MEDS ORDERED: NEOSTIGMINE METHYLSULFATE 5 MG/5 ML SYRINGE. ONE (11:46)
[2016-10-01] MEDS ORDERED: GLYCOPYRROLATE 1 MG/5 ML VIAL. ONE (11:46)
[2016-10-01] MEDS ORDERED: IV RINGERS,LACTATED 1000ML 1,000 ML IV SCH (12:09)
[2016-10-01] MEDS ORDERED: MORPHINE SULFATE 2 MG/ML DISP.SYRIN. IV PRN (12:15)
[2016-10-01] MEDS ORDERED: PROCHLORPERAZINE 10 MG/2 ML VIAL. IV PRN (12:15)
[2016-10-01] MEDS ORDERED: HYDROMORPHONE 2 MG/ML VIAL. IV PRN (12:15)
[2016-10-01] MEDS ORDERED: ONDANSETRON PF 4 MG/2 ML VIAL. IV PRN ×2 (12:15→16:45)
[2016-10-01] MEDS ORDERED: FENTANYL PF 100 MCG/2 ML VIAL. IV PRN (12:15)
[2016-10-01] MEDS ORDERED: LIDOCAINE 1% 1 ML SYRINGE. ID PRN (12:15)
[2016-10-01] MEDS ORDERED: BUPIVAC MPF-EPI 0.5%-1:200000 30 ML VIAL. ONE (12:57)
[2016-10-01] MEDS ORDERED: BISACODYL 10 MG SUPP.RECT ONE (12:58)
[2016-10-01] MEDS ORDERED: SURGICEL HEMOSTAT 2X3 EACH. ONE (12:58)
[2016-10-01] MEDS ORDERED: IOHEXOL 300 MG/ML 50 ML VIAL. ONE (12:58)
[2016-10-01] MEDS ORDERED: HEPARIN 1,000 UNIT in IV NORMAL SALINE 1,000 ML for SURG PERIOP IRR ONE (13:00)
[2016-10-01] MEDS ORDERED: DESFLURANE 61 TO 120 MINUTES IH ONE (13:18)
[2016-10-01] MEDS ORDERED: EPHEDRINE PF IN SALINE 50 MG/5 ML DISP.SYRIN. IV ONE (13:23)
[2016-10-01] MEDS ORDERED: BUPIVAC MPF-EPI 0.5%-1:200000 30 ML VIAL. IJ ONE (13:29)
[2016-10-01] MEDS ORDERED: ESMOLOL 100 MG/10 ML VIAL. IV ONE (13:49)
[2016-10-01] MEDS ORDERED: DESFLURANE > 120 MINUTES IH ONE (14:57)
[2016-10-01] MEDS ORDERED: MORPHINE SULFATE 10 MG/ML VIAL. ONE (15:16)
[2016-10-01] MEDS ORDERED: 0.9 % SODIUM CHLORIDE 50 ML VIAL. IJ ONE (15:17)
[2016-10-01] MEDS ORDERED: FAMOTIDINE 20 MG/2 ML VIAL ONE (16:20)
[2016-10-01] MEDS: IV RINGERS,LACTATED 1000ML 1,000 ML IV SCH (16:39)
[2016-10-01] MEDS: IV NORMAL SALINE 1000ML BAG 1,000 ML IV SCH (16:39)
[2016-10-01] MEDS ORDERED: 0.9 % SODIUM CHLORIDE 10 ML DISP.SYRIN. IV PRN (16:45)
[2016-10-01] MEDS ORDERED: NALOXONE 0.4 MG/ML VIAL. IV PRN (16:45)
[2016-10-01] MEDS ORDERED: MORPHINE SULFATE 30 ML IV PRN (16:45)
--- NOTE | 2016-10-01 16:58 | PDOC ---
BRIEF OPERATIVE NOTE Pre-Op Diagnosis Calculous cholecystitis Post-Op Diagnosis same, cholecystoduodenal fistula Procedure Performed lap converted to open cholecystectomy, liver biopsy, duodenotomy repair, pyloric exclusion, gastrojejunostomy, G-tube, J-tube Surgeon Yanira Ramon Anesthesia Type: General, Local Blood Loss 300 IV Fluid 1600 Specimens Obtained GB Complications none Additional Remarks [id number] ISABEL AGUILAR MD Oct 01, 2016 16:57
[2016-10-01] MEDS ORDERED: ENOXAPARIN 40 MG/0.4 ML DISP.SYRIN. SQ SCH (17:00)
[2016-10-01] MEDS: FENTANYL PF 100 MCG/2 ML VIAL. IV PRN ×2 (17:18→18:00)
--- NOTE | 2016-10-01 17:20 | RAD ---
EXAM: Abdomen one view. HISTORY: Postoperative, stent placement. COMPARISON: None. FINDINGS: A frontal view of the abdomen is obtained. A biliary stent is in expected position. What appears to be a gastrostomy tube projects over the left upper quadrant. A calculus measuring 4 mm projects over the left renal upper pole. Another length of tubing project over the right abdomen. There appears to be a surgical drain in the pelvis. There are no distended small bowel loops. There is gas distally. There is moderate diffuse degenerative disc disease. IMPRESSION: 1. No evidence of obstruction. Instrumentation as above.
[2016-10-01] MEDS: METOPROLOL TART IMMED RELEASE 25 MG TABLET PO SCH (20:30)
[2016-10-01] MEDS: ATORVASTATIN CALCIUM 40 MG TABLET. PO SCH (20:30)
[2016-10-01] MEDS: FAMOTIDINE 20 MG/2 ML VIAL IVP SCH (21:00)
[2016-10-02] VITALS (24 sets, daily range): BP systolic 114–156; BP diastolic 5–93
[2016-10-02] MEDS: ERTAPENEM 1 GM in IV NORMAL SALINE 50ML 50 ML IV SCH ×2 (00:45→17:00)
[2016-10-02] MEDS: IV RINGERS,LACTATED 1000ML 1,000 ML IV SCH ×2 (04:01→14:05)
--- NOTE | 2016-10-02 04:51 | OP ---
DATE OF SURGERY: 10/01/2016 REFERRING PHYSICIANS: Dr. Lisa Huerta, Dr. Orr, Dr. Gerry White. Thank you for the consult. PREOPERATIVE DIAGNOSIS: Calculous cholecystitis. POSTOPERATIVE DIAGNOSIS: Cholecystoduodenostomy fistula. PROCEDURE: Laparoscopic converted to open cholecystectomy, liver biopsy, repair of duodenotomy, pyloric exclusion, gastrojejunostomy, G-tube, J-tube placement. SURGEON: James Doyle M.D. PSYCHOLOGY TECH: Charanjit Ramon M.D. ESTIMATED BLOOD LOSS: 300 mL. FLUIDS: 1600 mL. COMPLICATIONS: None. FINDINGS: Extensive inflammatory changes of the gallbladder with associated purulent material around it. WOUND CLASSIFICATION: Dirty with erosion of very large gallstones into the duodenum. INDICATIONS FOR PROCEDURE: This 71-year-old male who had abdominal pain and evaluated in [place]. He had underwent ERCP with stenting of the common bile duct, but imaging was concerning for possible cholecystoduodenostomy fistula. Subsequently, it was felt that the patient best would be served by laparoscopic, possible open cholecystectomy with intraoperative cholangiogram. The patient and the patient's family were extensively informed of the risks, benefits, alternatives of the procedure, risks including but not limited to bleeding, infection, damage to the surrounding structures, risks of anesthesia, risk of an open procedure. The family was informed of the pre-significant possibility of requiring a duodenal repair and extensive nature of that. In addition, the patient is morbidly obese making the procedure fairly difficult. The patient and patient's family appeared to understand. Their insightful questions were answered, and they agreed to proceed. DESCRIPTION OF PROCEDURE: After obtaining informed consent, the patient was taken to the operating room and induced under general endotracheal anesthetic. The patient was prepped and draped in the usual fashion on the anterior abdominal wall. Marcaine 0.5% with epinephrine was injected in the supraumbilical area. An incision was made using 15 blade scalpel. A 5 mm nonbladed trocar was introduced in the abdominal cavity under direct vision of the laparoscope. Pneumoperitoneum was established. Additional 12 port was placed in the epigastrium, and a 5 mm port was placed in the right upper quadrant, all under direct vision of the laparoscope. The abdominal cavity was explored. The patient was obese making the procedure fairly difficult throughout. The liver is fatty in nature, and the gallbladder has extensive inflammatory changes to it. Visualized portion of the viscera, otherwise normal in appearance. There was no evidence of trocar injury. Of note, the duodenum was noted to be in very close proximation to the gallbladder. Initial laparoscopic dissection resulted in extensive inflammatory changes. The omentum was very adherent to the gallbladder. Given these findings and the concern for the cholecystoduodenostomy fistula, it was felt the patient best would best be served by an open procedure. Right costal margin incision (Cheryl incision) was made using electrocautery. The subcutaneous tissue was divided using electrocautery, and the abdominal wall musculature was divided using electrocautery. The gallbladder was identified. Carefully, the omentum was taken off of the gallbladder. It was noted to be very hard and difficult to grasp. It was taken off the gallbladder fossa in a dome down fashion using a combination of electrocautery and Impact LigaSure. It was difficult to grasp that secondary to multiple large gallstones. Eventually it was felt that the patient would best be served by opening the gallbladder and correcting and dissection from internally. The gallbladder was opened. Many large gallstones were evacuated, the largest one being 6 cm in diameter. These were evacuated out and passed off the field and sent to pathology for evaluation. This also demonstrated a very large defect into the duodenum through the gallbladder, which a gallstone was impacted within it. This was evacuated out and sent with the specimen. Once again, the gallbladder was taken off the gallbladder fossa sharply with electrocautery. It was taken off of the duodenum. An obvious cystic duct was not identified as there was essentially obliteration of all this area. What was felt to be the cystic duct was ligated using 0 Vicryl free tie. It was difficult to palpate the common bile duct secondary to extensive inflammatory changes as well as pus in the area, even though there was a stent within the common bile duct. It was felt the CBD was not at risk given no stent visualized. The gall bladder was then resected and passed off the field and sent to pathology for evaluation. Frozen section did not demonstrate any evidence of malignancy. A wedge liver biopsy was performed, given cirrhotic changes, using ligasure device. Hemostasis was obtained with cautery. The duodenotomy was evaluated. It was noted to have extensive inflammatory changes. The duodenum was palpated proximally and distally. The stent was palpated coming through the ampulla of Vater and appeared to be in proper positioning. Given these findings, it was felt the patient would best be served by pyloric exclusion and repair of the duodenotomy due to extensive inflammatory changes. This was discussed with the family as well. A gastrostomy tube was placed that was 24 in the left upper quadrant, brought into the proximal portion of the stomach, and secured in place using multiple interrupted 3-0 Vicryl pursestring as well as attaching it to the anterior abdominal wall. A [id number] gastrojejunostomy was created to a loop of jejunum approximately 30 cm distal to the ligament of Treitz. Through this, the pylorus was excluded using a continuous 0 Vicryl stitch. The [id number] gastrojejunostomy was created using a gentle load RUDY stapler. This was reinforced using multiple interrupted 3-0 Vicryl stitches, and the opening was closed using 3-0 PDS in continuous fashion as well as a 3-0 Vicryl. The anastomosis was noted to be patent and in no tension, completely viable without evidence of leakage. The duodenotomy was then closed using a continuous 3-0 PDS, very inflamed tissues, but this was brought into good apposition and appeared to be patent without significant compromise of the underlying lumen. The common bile duct stent was maintained in position. At 30 cm distal to the gastrojejunostomy and J-tube, a 20 Syrian gastrostomy tube was brought in as a jejunostomy tube and placed through two 3-0 Vicryl pursestrings brought into the apposition of the abdominal wall, and the balloon was inflated 5 mL. The abdominal cavity was copiously irrigated with normal saline solution. There was no evidence of bile leakage or bleeding at the time of closure. A 19 DEBORA drain was placed in the gallbladder fossa, secured in place using a 3-0 nylon stitch. The G-tube and the J-tubes were also secured in place using a 3-0 nylon stitch. The abdominal cavity was copiously irrigated with normal saline solution. Peritoneum and posterior fascia was reapproximated using a continuous 0 Vicryl stitch. The anterior fascia was reapproximated using a looped 0-PDS stitch in a continuous fashion. A [place] drain was placed in the subcutaneous tissues. Subcutaneous tissues were approximated with 3-0 Vicryl. Skin incision was reapproximated with 4-0 Monocryl in a subcuticular fashion. [place] drain was secured in place using a 3-0 nylon stitch. Sterile dressing was placed over all wounds. The patient tolerated the procedure well, but will be transferred to the ICU given his extensive inflammatory findings and extensive surgery as well as his comorbidities. The wound classification is dirty. The procedure was classified as very difficult given the extensive inflammatory changes. Thank you for allowing me to participate in the care of this very pleasant patient. JAMES DOYLE MD DR: BERNICE/maryse JOB#: [id number] / [id number] LISA HUERTA MD, GERRY ORR, RICCARDO RUSSELL
[2016-10-02] MEDS: INSULIN ASPART 300 UNITS/3 ML INSULN.PEN SQ SCH ×4 (08:00→17:02)
[2016-10-02] MEDS: MULTIVITAMIN with MINERAL TABLET. PO SCH (08:34)
[2016-10-02] MEDS: FAMOTIDINE 20 MG TABLET. PO SCH ×2 (08:34→20:32)
[2016-10-02] MEDS: EZETIMIBE 10 MG TABLET PO SCH (08:35)
--- NOTE | 2016-10-02 08:53 | PDOC ---
PROGRESS NOTES Chief Complaint Chief Complaint CC: Gallstones A/P Symptomatic Cholelithiasis, Cholecystoduodenostomy fistula, s/p open cholecystectomy, liver biopsy, repair of duodenotomy, pyloric exclusion, gastrojejunostomy, G-tube, J-tube placement. POD 1 HTN NIDDM HLP HX OF CABG OBESITY Plan on Morphine PRECISION MILLWRIGHT seen in ICU avoid co2 narcosis NG tube Intermittent suction mild SSI wound care intake and out put ProcalAmine BP control GS following, appreciate recommendations. labs reviewed, monitor hemoglobin. History of Present Illness History of Present Illness no abd pain not requiring IV pain meds NO white ct no fever Planned for lap wero torrey by GS PLAN: NPO post MN LAbs look ok Pt looks ok LAp wero torrey Dw pt and and RN Vitals Vitals Vital Signs Date Time Temp Pulse Resp B/P Pulse Ox O2 Delivery O2 Flow Rate FiO2 10/02/16 06:00 98.0 88 20 138/60 96 Room Air 98.0 10/02/16 02:03 2.0 Physical Exam General: Alert, Oriented X3, Cooperative, No acute distress Heart: Regular rate, Normal S1, Normal S2 Lungs: Clear Abdomen: Soft, Other (drain in place) Extremities: No clubbing, No cyanosis Skin: No rashes Labs LABS Laboratory Tests Test 10/01/16 11:01 10/01/16 17:26 10/01/16 21:22 10/02/16 03:58 Glucose (Fingerstick) 135mg/dL (70-99) 198mg/dL (70-99) 261mg/dL (70-99) 260mg/dL (70-99) Test 10/02/16 08:41 Glucose (Fingerstick) 211mg/dL (70-99) Assessment and Plan Assessmemt and Plan Problems Medical Problems: (1) Cholecystoduodenal fistula Status: Acute (2) Cholelithiasis Status: Acute Problems: Comment Review of Relevant I have reviewed the following items jose (where applicable) has been applied. Labs Laboratory Tests Test 09/30/16 11:04 09/30/16 16:34 09/30/16 21:08 10/01/16 06:20 Glucose (Fingerstick) 224mg/dL (70-99) 146mg/dL (70-99) 196mg/dL (70-99) Total Bilirubin 0.7mg/dL (0.2-1.0) Direct Bilirubin 0.4mg/dL (0.0-0.2) Aspartate Amino Transf (AST/SGOT) 54U/L (15-37) Alanine Aminotransferase (ALT/SGPT) 62U/L (16-63) Alkaline Phosphatase 391U/L (46-116) Total Protein 7.1g/dL (6.4-8.2) Albumin 2.7g/dL (3.4-5.0) Test 10/01/16 11:01 10/01/16 17:26 10/01/16 21:22 10/02/16 03:58 Glucose (Fingerstick) 135mg/dL (70-99) 198mg/dL (70-99) 261mg/dL (70-99) 260mg/dL (70-99) Test 10/02/16 08:41 Glucose (Fingerstick) 211mg/dL (70-99) Laboratory Tests Test 10/01/16 11:01 10/01/16 17:26 10/01/16 21:22 10/02/16 03:58 Glucose (Fingerstick) 135mg/dL (70-99) 198mg/dL (70-99) 261mg/dL (70-99) 260mg/dL (70-99) Test 10/02/16 08:41 Glucose (Fingerstick) 211mg/dL (70-99) Medications Current Medications Sodium Chloride (Iv Sodium Chloride 0.45%) 1,000 ml @ 100 mls/hr Q10H IV Last administered on 09/29/16t 08:18; Start 09/27/16 at 16:50; Stop 09/29/16 at 14:58 ; Status DC Ondansetron HCl (Zofran) 4 mg PRN Q6HRS PRN IV NAUSEA/VOMITING 1ST CHOICE; Start 09/27/16 at 17:00 Prochlorperazine Edisylate (Compazine) 10 mg PRN Q6HRS PRN IV NAUSEA/VOMITING 2ND CHOICE; Start 09/27/16 at 17:00 Prochlorperazine (Compazine) 25 mg PRN Q12HR PRN IA NAUSEA/VOMITING; Start at 17:00 Al Hydrox/Mg Hydrox/Simethicone (Mylanta Plus Xs) 30 ml PRN Q3HRS PRN PO HEARTBURN / GAS; Start 09/27/16 at 17:00 Calcium Carbonate/ Glycine (Tums) 500 mg PRN Q3HRS PRN PO UPSET STOMACH; Start 09/27/16 at 17:00 Oxycodone HCl (Roxicodone) 5 mg PRN Q3HRS PRN PO BREAKTHROUGH PAIN; Start 09/27 at 17:00 Morphine Sulfate 2 mg PRN Q2HR PRN IV MILD-MOD PAIN; Start 09/27/16 at 17:00 Magnesium Hydroxide (Milk Of Magnesia) 2,400 mg PRN Q12HR PRN PO CONSTIPATION; Start 09/27/16 at 17:00; Stop 09/27/16 at 17:15; Status DC Lactulose 20 gm PRN Q12HR PRN PO CONSTIPATION; Start 09/27/16 at 17:00; Stop at 17:15; Status DC Bisacodyl (Dulcolax Supp) 10 mg PRN DAILY PRN IA CONSTIPATION; Start 09/27/16 at 17:00; Stop 09/27/16 at 17:15; Status DC EZETIMIBE (Zetia) 10 mg DAILY PO Last administered on 09/30/16 08:46; Start at 09:00 Metoprolol Tartrate (Lopressor) 12.5 mg HS PO Last administered on 09/30/16 21 :28; Start 09/27/16 at 21:00 Atorvastatin Calcium (Lipitor) 80 mg QHS PO Last administered on 09/30/16 21: 27; Start 09/27/16 at 21:00 Glipizide (Glucotrol) 10 mg BIDBFRMEAL PO ; Start 09/27/16 at 17:00; Stop at 17:15; Status DC Multivitamins/ Calcium (Thera M Plus) 1 tab DAILY PO Last administered on 20:31; Start 09/28/16 at 09:00 Non-Formulary Medication 99 mg DAILY PO ; Start 09/28/16 at 09:00; Status UNV Famotidine (Pepcid) 20 mg BID PO Last administered on 09/30/16 21:28; Start at 21:00 Insulin Aspart (Novolog) 0-5 UNITS TIDWMEALS SQ Last administered on 09/30/16 12:04; Start 09/28/16 at 12:00; Stop 10/02/16 at 08:45; Status DC Dextrose 12.5 gm PRN Q15MIN PRN IV SEE COMMENTS; Start 09/28/16 at 09:45 Acetaminophen 650 mg 650 mg PRN Q6HRS PRN PO MILD PAIN / TEMP; Start 09/29/16 at 15:00 Levofloxacin/ Dextrose (LEVAQUIN 750mg PREMIX) 150 ml @ 100 mls/hr 1X PREOP PRN IV coupon collection clerk to OR Last administered on 10/01/16 13:12; Start 10/01/16 at 09: 15; Stop 10/02/16 at 18:00 Ondansetron HCl (Zofran) 4 mg PRN Q6HRS PRN IV Nausea; Start 10/01/16 at 12:15 ; Stop 10/02/16 at 12:14 Fentanyl Citrate (Fentanyl 2ml Vial) 25 mcg PRN Q5MIN PRN IV MILD PAIN; Start 10/01/16 at 12:15; Stop 10/02/16 at 12:14 Fentanyl Citrate (Fentanyl 2ml Vial) 50 mcg PRN Q5MIN PRN IV MODERATE PAIN Last administered on 10/01/16 18:00; Start 10/01/16 at 12:15; Stop 10/02/16 at 12:14 Morphine Sulfate 1 mg 1 mg PRN Q10MIN PRN IV SEVERE PAIN; Start 10/01/16 at 12: 15; Stop 10/02/16 at 12:14 Lactated Ringer's (Iv Lactated Ringers) 1,000 ml @ 0 mls/hr Q0M IV Last administered on 10/01/16 12:18; Start 10/01/16 at 12:09; Stop 10/02/16 at 00:08 ; Status DC Lidocaine HCl 2 ml 1X PRN PRN ID IV START; Start 10/01/16 at 12:15; Stop at 12:14 Hydromorphone HCl (Dilaudid) 0.5 mg PRN Q10MIN PRN IV SEV PAIN,Second choice; Start 10/01/16 at 12:15; Stop 10/02/16 at 12:14 Prochlorperazine Edisylate 5 mg 5 mg PACU PRN PRN IV NAUSEA Last administered on 10/01/16 17:23; Start 10/01/16 at 12:15; Stop 10/02/16 at 12:14 Heparin Sodium (Porcine)/Sodium Chloride (Iv Sodium Chloride 0.9% 1000ml Bag) 1, 001 ml @ 1,001 mls/hr 1X PERIOP ONCE IRR ; Start 10/01/16 at 13:00; Stop 10/01 at 14:04; Status DC Bupivacaine HCl/ Epinephrine Bitart 30 ml 30 ml STK-MED ONCE IJ Last administered on 10/01/16 13:29; Start 10/01/16 at 13:29; Stop 10/01/16 at 14:04 ; Status DC Ertapenem/Sodium Chloride (Invanz/Iv Sodium Chloride 0.9% 50ml) 50 ml @ 100 mls /hr Q24H IV Last administered on 10/02/16 00:45; Start 10/01/16 at 17:00 Famotidine (Pepcid) 20 mg BID IVP ; Start 10/01/16 at 21:00 Enoxaparin Sodium (Lovenox 40mg Syringe) 40 mg Q24H SQ ; Start 10/01/16 at 17:00 ; Stop 10/02/16 at 01:44; Status DC Sodium Chloride 3 ml 3 ml QSHIFT PRN IV AFTER MEDS AND BLOOD DRAWS; Start 10/01 at 16:45 Lactated Ringer's (Iv Lactated Ringers) 1,000 ml @ 100 mls/hr Q10H IV Last administered on 10/02/16 04:01; Start 10/01/16 at 16:39 Naloxone HCl 0.4 mg 0.4 mg PRN Q2MIN PRN IV SEE INSTRUCTIONS; Start 10/01/16 at 16:45 Sodium Chloride 1,000 ml @ 25 mls/hr Q24H IV ; Start 10/01/16 at 16:39 Morphine Sulfate (Morphine 30 Mg/ 30 ml PRECISION MILLWRIGHT) 30 ml @ 0 mls/hr CONT PRN PRN IV PROTOCOL Last administered on 10/01/16 17:34; Start 10/01/16 at 16:45 Ondansetron HCl (Zofran) 4 mg PRN Q6HRS PRN IV NAUESA, 1ST CHOICE; Start at 16:45 Enoxaparin Sodium (Lovenox 40mg Syringe) 40 mg Q24H SQ ; Start 10/02/16 at 09:00 Insulin Aspart (Novolog) 0-5 UNITS Q6HRS SQ ; Start 10/02/16 at 12:00; Status UNV Active Scripts Active Reported Potassium Gluconate 99 Mg Tablet 99 Mg PO DAILY Men's Multi-Vitamin (Multivitamin) 1 Each Tablet 1 Each PO DAILY Aspirin 325 Mg Tablet 1 Tab PO DAILY Ranitidine Hcl 300 Mg Tablet 1 Tab PO BID Glipizide 10 Mg Tablet 1 Tab PO BIDWMEALS Zetia (Ezetimibe) 10 Mg Tablet 1 Tab PO DAILY Atorvastatin Calcium 80 Mg Tablet 1 Tab PO HS Metoprolol Tartrate 25 Mg Tablet 12.5 Mg PO HS Vitals/I & O Vital Sign - Last 24 Hours 10/01/16 10/01/16 10/01/16 10/01/16 10:56 12:23 17:06 17:06 Temp 98.3 97.6 98.5 98.3 97.6 98.5 Pulse 58 63 89 Resp 18 B/P 136/61 159/70 171/77 Pulse Ox 95 96 100 O2 Delivery Room Air Room Air Mask Simple Mask O2 Flow Rate 10 10 10/01/16 10/01/16 10/01/16 10/01/16 17:18 17:21 17:34 17:36 Pulse 82 86 Resp 18 B/P 170/80 173/69 Pulse Ox 100 100 94 93 O2 Delivery Simple Mask Simple Mask Room Air Room Air O2 Flow Rate 10.0 10 10/01/16 10/01/16 10/01/16 10/01/16 17:40 17:51 18:00 18:06 Temp 97.3 97.3 Pulse 88 82 Resp 16 B/P 156/68 155/65 Pulse Ox 97 97 97 O2 Delivery Nasal Cannula Nasal Cannula Nasal Cannula Nasal Cannula O2 Flow Rate 2 2 2.0 2 10/01/16 10/01/16 10/01/16 10/01/16 18:21 19:00 20:00 20:05 Temp 97.8 97.8 97.8 97.8 Pulse 96 94 103 Resp B/P 167/63 155/67 154/68 Pulse Ox 96 95 95 O2 Delivery Nasal Cannula Nasal Cannula Nasal Cannula Nasal Cannula O2 Flow Rate 2 2.0 2.0 2.0 10/01/16 10/01/16 10/01/16 10/01/16 20:30 21:08 22:00 23:00 Temp 97.8 97.8 Pulse 103 107 114 102 Resp 20 20 B/P 154/68 146/71 168/76 126/57 Pulse Ox 95 95 93 O2 Delivery Nasal Cannula Nasal Cannula Nasal Cannula O2 Flow Rate 2.0 2.0 2.0 10/02/16 10/02/16 10/02/16 10/02/16 00:00 00:00 00:52 02:03 Temp 98.2 98.2 98.0 98.2 98.2 98.0 Pulse 99 97 96 Resp 20 B/P 133/52 136/63 128/58 Pulse Ox 96 96 96 O2 Delivery Nasal Cannula Nasal Cannula Nasal Cannula Nasal Cannula O2 Flow Rate 2.0 2.0 2.0 2.0 10/02/16 10/02/16 10/02/16 10/02/16 03:00 04:00 04:00 05:00 Temp 98.3 98.3 98.0 98.3 98.3 98.0 Pulse 90 90 88 Resp 20 B/P 137/54 137/55 128/58 Pulse Ox 95 96 93 O2 Delivery Room Air Room Air Room Air Room Air 10/02/16 06:00 Temp 98.0 98.0 Pulse 88 Resp 20 B/P 138/60 Pulse Ox 96 O2 Delivery Room Air Intake and Output 10/01/16 10/01/16 10/02/16 15:00 23:00 07:00 Intake Total 150 ml 1900 ml 710 ml Output Total 695 ml 440 ml Balance 150 ml 1205 ml 270 ml EDDA CALERO MD Oct 02, 2016 08:53
[2016-10-02] MEDS: FAMOTIDINE 20 MG/2 ML VIAL IVP SCH ×2 (09:34→21:10)
[2016-10-02] MEDS: ENOXAPARIN 40 MG/0.4 ML DISP.SYRIN. SQ SCH (09:35)
--- NOTE | 2016-10-02 11:53 | PDOC ---
SURGICAL PROGRESS NOTE Subjective POD 1, open wero, closure duodenum, BII, G and J tubes good pain control at bedside Vital Signs Vital Signs Date Time Temp Pulse Resp B/P Pulse Ox O2 Delivery O2 Flow Rate FiO2 10/02/16 11:00 82 16 114/79 94 Room Air 10/02/16 08:00 98.4 98.4 10/02/16 02:03 2.0 I&O Intake and Output 10/02/16 07:00 Intake Total 2760 ml Output Total 1135 ml Balance 1625 ml Intake Oral 0 ml IV Total 2760 ml Output Urine Total 445 ml Drainage Total 390 ml Estimated Blood Loss 300 ml PATIENT HAS A KHAN: Yes General: Alert, Oriented X3, Cooperative, No acute distress Lungs: Normal air movement Abdomen: Soft, Other (dressing intact, NG patent with old heme output) Labs Laboratory Tests Test 09/30/16 16:34 09/30/16 21:08 10/01/16 06:20 10/01/16 11:01 Glucose (Fingerstick) 146mg/dL (70-99) 196mg/dL (70-99) 135mg/dL (70-99) Total Bilirubin 0.7mg/dL (0.2-1.0) Direct Bilirubin 0.4mg/dL (0.0-0.2) Aspartate Amino Transf (AST/SGOT) 54U/L (15-37) Alanine Aminotransferase (ALT/SGPT) 62U/L (16-63) Alkaline Phosphatase 391U/L (46-116) Total Protein 7.1g/dL (6.4-8.2) Albumin 2.7g/dL (3.4-5.0) Test 10/01/16 17:26 10/01/16 21:22 10/02/16 03:58 10/02/16 08:41 Glucose (Fingerstick) 198mg/dL (70-99) 261mg/dL (70-99) 260mg/dL (70-99) 211mg/dL (70-99) Laboratory Tests Test 10/01/16 17:26 10/01/16 21:22 10/02/16 03:58 10/02/16 08:41 Glucose (Fingerstick) 198mg/dL (70-99) 261mg/dL (70-99) 260mg/dL (70-99) 211mg/dL (70-99) Problem List Problems Medical Problems: (1) Cholecystoduodenal fistula Status: Acute (2) Cholelithiasis Status: Acute Assessment/Plan POD 1 doing well OOB Problems: FAUSTINO OVIEDO MD Oct 02, 2016 11:53
[2016-10-02] MEDS: AA 2.75%/CALCIUM/LYTES/D5W 1,000 ML IV SCH (14:12)
[2016-10-02] MEDS: IV NORMAL SALINE 1000ML BAG 1,000 ML IV SCH (16:39)
[2016-10-02] MEDS: ATORVASTATIN CALCIUM 40 MG TABLET. PO SCH (20:32)
[2016-10-02] MEDS: METOPROLOL TART IMMED RELEASE 25 MG TABLET PO SCH (20:32)
[2016-10-03] VITALS (18 sets, daily range): BP systolic 152–173; BP diastolic 51–78
[2016-10-03] MEDS: INSULIN ASPART 300 UNITS/3 ML INSULN.PEN SQ SCH ×4 (00:05→18:03)
[2016-10-03] MEDS: IV RINGERS,LACTATED 1000ML 1,000 ML IV SCH ×3 (00:15→21:19)
[2016-10-03] MEDS: AA 2.75%/CALCIUM/LYTES/D5W 1,000 ML IV SCH ×2 (02:05→16:10)
[2016-10-03] MEDS: FAMOTIDINE 20 MG/2 ML VIAL IVP SCH ×2 (08:51→21:19)
[2016-10-03] MEDS: EZETIMIBE 10 MG TABLET PO SCH (08:52)
[2016-10-03] MEDS: MULTIVITAMIN with MINERAL TABLET. PO SCH (08:52)
[2016-10-03] MEDS: ENOXAPARIN 40 MG/0.4 ML DISP.SYRIN. SQ SCH (08:52)
[2016-10-03] MEDS: FAMOTIDINE 20 MG TABLET. PO SCH (08:52)
[2016-10-03] MEDS: IV NORMAL SALINE 1000ML BAG 1,000 ML IV SCH (09:09)
--- NOTE | 2016-10-03 09:13 | PDOC ---
SURGICAL PROGRESS NOTE Subjective Pt resting comfortably, but notes abd pain since up in chair, notes UTILITY LINEMAN not helping, appears comfortable, no n/v Vital Signs Vital Signs Date Time Temp Pulse Resp B/P Pulse Ox O2 Delivery O2 Flow Rate FiO2 10/03/16 08:00 Room Air 10/03/16 08:00 73 18 157/61 94 10/03/16 04:00 99.5 99.5 I&O Intake and Output 10/03/16 07:00 Intake Total 3376.0 ml Output Total 1472 ml Balance 1904.0 ml IV Total 3376.0 ml Output Urine Total 1062 ml Gastric Drainage Total 350 ml Drainage Total 60 ml General: Alert, Oriented X3, Cooperative, No acute distress Abdomen: Soft, No tenderness, Other (dressing c/d/i, DEBORA min bilious output, nGT bilious) Labs Laboratory Tests Test 10/01/16 11:01 10/01/16 17:26 10/01/16 21:22 10/02/16 03:58 Glucose (Fingerstick) 135mg/dL (70-99) 198mg/dL (70-99) 261mg/dL (70-99) 260mg/dL (70-99) Test 10/02/16 08:41 10/02/16 14:09 10/02/16 16:54 10/03/16 00:03 Glucose (Fingerstick) 211mg/dL (70-99) 166mg/dL (70-99) 204mg/dL (70-99) 205mg/dL (70-99) Test 10/03/16 05:33 Glucose (Fingerstick) 183mg/dL (70-99) Laboratory Tests Test 10/02/16 14:09 10/02/16 16:54 10/03/16 00:03 10/03/16 05:33 Glucose (Fingerstick) 166mg/dL (70-99) 204mg/dL (70-99) 205mg/dL (70-99) 183mg/dL (70-99) Problem List Problems Medical Problems: (1) Cholecystoduodenal fistula Status: Acute (2) Cholelithiasis Status: Acute Assessment/Plan s/p xlap change UTILITY LINEMAN start TF, G-tube to drainage Encourage OOB, d/w pt and pt's family Problems: ISABEL AGUILAR MD Oct 03, 2016 09:13
[2016-10-03] MEDS ORDERED: HYDROMORPHONE STANDARD PCA 30 ML IV PRN (09:15)
[2016-10-03] MEDS ORDERED: NALOXONE 0.4 MG/ML VIAL. IV PRN (09:15)
[2016-10-03] MEDS ORDERED: hydrALAZINE 20 MG/ML VIAL. IVP PRN (11:15)
[2016-10-03] MEDS: METOPROLOL TARTRATE 5 MG/5 ML VIAL. IVP SCH ×2 (11:34→17:19)
--- NOTE | 2016-10-03 12:02 | PDOC ---
PROGRESS NOTES Chief Complaint Chief Complaint CC: Gallstones A/P Symptomatic Cholelithiasis, Cholecystoduodenostomy fistula, s/p open cholecystectomy, liver biopsy, repair of duodenotomy, pyloric exclusion, gastrojejunostomy, G-tube, J-tube placement. POD 1 HTN NIDDM HLP HX OF CABG OBESITY Plan on Dilaudid CARE ANALYST seen in ICU avoid co2 narcosis NG tube Tube feeds. Intermittent suction mild SSI wound care intake and out put ProcalAmine BP control GS following, appreciate recommendations. labs reviewed, monitor hemoglobin. History of Present Illness History of Present Illness doing better abdominal pain better Vitals Vitals Vital Signs Date Time Temp Pulse Resp B/P Pulse Ox O2 Delivery O2 Flow Rate FiO2 10/03/16 11:45 Room Air 2.0 10/03/16 11:34 74 172/63 10/03/16 11:09 20 93 10/03/16 04:00 99.5 99.5 Physical Exam General: Alert, Oriented X3, Cooperative, No acute distress Heart: Regular rate, Normal S1, Normal S2 Lungs: Clear Abdomen: Soft, No tenderness, Other (dressing c/d/i, DEBORA min bilious output, nGT bilious) Extremities: No clubbing, No cyanosis Skin: No rashes Labs LABS Laboratory Tests Test 10/02/16 14:09 10/02/16 16:54 10/03/16 00:03 10/03/16 05:33 Glucose (Fingerstick) 166mg/dL (70-99) 204mg/dL (70-99) 205mg/dL (70-99) 183mg/dL (70-99) Test 10/03/16 11:33 Glucose (Fingerstick) 175mg/dL (70-99) Assessment and Plan Assessmemt and Plan Problems Medical Problems: (1) Cholecystoduodenal fistula Status: Acute (2) Cholelithiasis Status: Acute Problems: Comment Review of Relevant I have reviewed the following items jose (where applicable) has been applied. Labs Laboratory Tests Test 10/01/16 17:26 10/01/16 21:22 10/02/16 03:58 10/02/16 08:41 Glucose (Fingerstick) 198mg/dL (70-99) 261mg/dL (70-99) 260mg/dL (70-99) 211mg/dL (70-99) Test 10/02/16 14:09 10/02/16 16:54 10/03/16 00:03 10/03/16 05:33 Glucose (Fingerstick) 166mg/dL (70-99) 204mg/dL (70-99) 205mg/dL (70-99) 183mg/dL (70-99) Test 10/03/16 11:33 Glucose (Fingerstick) 175mg/dL (70-99) Laboratory Tests Test 10/02/16 14:09 10/02/16 16:54 10/03/16 00:03 10/03/16 05:33 Glucose (Fingerstick) 166mg/dL (70-99) 204mg/dL (70-99) 205mg/dL (70-99) 183mg/dL (70-99) Test 10/03/16 11:33 Glucose (Fingerstick) 175mg/dL (70-99) Medications Current Medications Sodium Chloride (Iv Sodium Chloride 0.45%) 1,000 ml @ 100 mls/hr Q10H IV Last administered on 09/29/16t 08:18; Start 09/27/16 at 16:50; Stop 09/29/16 at 14:58 ; Status DC Ondansetron HCl (Zofran) 4 mg PRN Q6HRS PRN IV NAUSEA/VOMITING 1ST CHOICE; Start 09/27/16 at 17:00; Stop 10/03/16 at 11:06; Status DC Prochlorperazine Edisylate (Compazine) 10 mg PRN Q6HRS PRN IV NAUSEA/VOMITING 2ND CHOICE; Start 09/27/16 at 17:00 Prochlorperazine (Compazine) 25 mg PRN Q12HR PRN OH NAUSEA/VOMITING; Start at 17:00 Al Hydrox/Mg Hydrox/Simethicone (Mylanta Plus Xs) 30 ml PRN Q3HRS PRN PO HEARTBURN / GAS; Start 09/27/16 at 17:00 Calcium Carbonate/ Glycine (Tums) 500 mg PRN Q3HRS PRN PO UPSET STOMACH; Start 09/27/16 at 17:00 Oxycodone HCl (Roxicodone) 5 mg PRN Q3HRS PRN PO BREAKTHROUGH PAIN; Start 09/27 at 17:00 Morphine Sulfate 2 mg PRN Q2HR PRN IV MILD-MOD PAIN Last administered on 01:29; Start 09/27/16 at 17:00 Magnesium Hydroxide (Milk Of Magnesia) 2,400 mg PRN Q12HR PRN PO CONSTIPATION; Start 09/27/16 at 17:00; Stop 09/27/16 at 17:15; Status DC Lactulose 20 gm PRN Q12HR PRN PO CONSTIPATION; Start 09/27/16 at 17:00; Stop at 17:15; Status DC Bisacodyl (Dulcolax Supp) 10 mg PRN DAILY PRN OH CONSTIPATION; Start 09/27/16 at 17:00; Stop 09/27/16 at 17:15; Status DC EZETIMIBE (Zetia) 10 mg DAILY PO Last administered on 09/30/16 08:46; Start at 09:00 Metoprolol Tartrate (Lopressor) 12.5 mg HS PO Last administered on 09/30/16 21 :28; Start 09/27/16 at 21:00; Stop 10/03/16 at 11:08; Status DC Atorvastatin Calcium (Lipitor) 80 mg QHS PO Last administered on 09/30/16 21: 27; Start 09/27/16 at 21:00 Glipizide (Glucotrol) 10 mg BIDBFRMEAL PO ; Start 09/27/16 at 17:00; Stop at 17:15; Status DC Multivitamins/ Calcium (Thera M Plus) 1 tab DAILY PO Last administered on 20:31; Start 09/28/16 at 09:00 Non-Formulary Medication 99 mg DAILY PO ; Start 09/28/16 at 09:00; Status UNV Famotidine (Pepcid) 20 mg BID PO Last administered on 09/30/16 21:28; Start at 21:00; Stop 10/03/16 at 11:05; Status DC Insulin Aspart (Novolog) 0-5 UNITS TIDWMEALS SQ Last administered on 09/30/16 12:04; Start 09/28/16 at 12:00; Stop 10/02/16 at 08:45; Status DC Dextrose 12.5 gm PRN Q15MIN PRN IV SEE COMMENTS; Start 09/28/16 at 09:45 Acetaminophen 650 mg 650 mg PRN Q6HRS PRN PO MILD PAIN / TEMP; Start 09/29/16 at 15:00 Levofloxacin/ Dextrose (LEVAQUIN 750mg PREMIX) 150 ml @ 100 mls/hr 1X PREOP PRN IV application security architect to OR Last administered on 10/01/16 13:12; Start 10/01/16 at 09: 15; Stop 10/02/16 at 18:00; Status DC Ondansetron HCl (Zofran) 4 mg PRN Q6HRS PRN IV Nausea; Start 10/01/16 at 12:15 ; Stop 10/02/16 at 12:14; Status DC Fentanyl Citrate (Fentanyl 2ml Vial) 25 mcg PRN Q5MIN PRN IV MILD PAIN; Start 10/01/16 at 12:15; Stop 10/02/16 at 12:14; Status DC Fentanyl Citrate (Fentanyl 2ml Vial) 50 mcg PRN Q5MIN PRN IV MODERATE PAIN Last administered on 10/01/16 18:00; Start 10/01/16 at 12:15; Stop 10/02/16 at 12:14; Status DC Morphine Sulfate 1 mg 1 mg PRN Q10MIN PRN IV SEVERE PAIN; Start 10/01/16 at 12: 15; Stop 10/02/16 at 12:14; Status DC Lactated Ringer's (Iv Lactated Ringers) 1,000 ml @ 0 mls/hr Q0M IV Last administered on 10/01/16 12:18; Start 10/01/16 at 12:09; Stop 10/02/16 at 00:08 ; Status DC Lidocaine HCl 2 ml 1X PRN PRN ID IV START; Start 10/01/16 at 12:15; Stop at 12:14; Status DC Hydromorphone HCl (Dilaudid) 0.5 mg PRN Q10MIN PRN IV SEV PAIN,Second choice; Start 10/01/16 at 12:15; Stop 10/02/16 at 12:14; Status DC Prochlorperazine Edisylate 5 mg 5 mg PACU PRN PRN IV NAUSEA Last administered on 10/01/16 17:23; Start 10/01/16 at 12:15; Stop 10/02/16 at 12:14; Status DC Heparin Sodium (Porcine)/Sodium Chloride (Iv Sodium Chloride 0.9% 1000ml Bag) 1, 001 ml @ 1,001 mls/hr 1X PERIOP ONCE IRR ; Start 10/01/16 at 13:00; Stop 10/01 at 14:04; Status DC Bupivacaine HCl/ Epinephrine Bitart 30 ml 30 ml STK-MED ONCE IJ Last administered on 10/01/16 13:29; Start 10/01/16 at 13:29; Stop 10/01/16 at 14:04 ; Status DC Ertapenem/Sodium Chloride (Invanz/Iv Sodium Chloride 0.9% 50ml) 50 ml @ 100 mls /hr Q24H IV Last administered on 10/02/16 17:00; Start 10/01/16 at 17:00 Famotidine (Pepcid) 20 mg BID IVP Last administered on 10/03/16 08:51; Start 10/01/16 at 21:00 Enoxaparin Sodium (Lovenox 40mg Syringe) 40 mg Q24H SQ ; Start 10/01/16 at 17:00 ; Stop 10/02/16 at 01:44; Status DC Sodium Chloride 3 ml 3 ml QSHIFT PRN IV AFTER MEDS AND BLOOD DRAWS; Start 10/01 at 16:45 Lactated Ringer's (Iv Lactated Ringers) 1,000 ml @ 100 mls/hr Q10H IV Last administered on 10/03/16 10:15; Start 10/01/16 at 16:39 Naloxone HCl 0.4 mg 0.4 mg PRN Q2MIN PRN IV SEE INSTRUCTIONS; Start 10/01/16 at 16:45; Stop 10/03/16 at 11:06; Status DC Sodium Chloride 1,000 ml @ 25 mls/hr Q24H IV ; Start 10/01/16 at 16:39; Stop at 11:05; Status DC Morphine Sulfate (Morphine 30 Mg/ 30 ml CARE ANALYST) 30 ml @ 0 mls/hr CONT PRN PRN IV PROTOCOL Last administered on 10/01/16 17:34; Start 10/01/16 at 16:45; Stop at 09:09; Status DC Ondansetron HCl (Zofran) 4 mg PRN Q6HRS PRN IV NAUESA, 1ST CHOICE; Start at 16:45 Enoxaparin Sodium (Lovenox 40mg Syringe) 40 mg Q24H SQ Last administered on 08:52; Start 10/02/16 at 09:00 Insulin Aspart (Novolog) 0-5 UNITS Q6HRS SQ Last administered on 10/03/16 11: 34; Start 10/02/16 at 09:00 Lidocaine HCl 5 ml 5 ml STK-MED ONCE .ROUTE ; Start 10/01/16 at 10:50; Stop at 09:51; Status DC Propofol (Diprivan) 100 ml @ As Directed STK-MED ONCE IV ; Start 10/01/16 at 10 :50; Stop 10/02/16 at 09:51; Status DC Rocuronium Boswell (Zemuron) 50 mg STK-MED ONCE .ROUTE ; Start 10/01/16 at 10:50 ; Stop 10/02/16 at 09:51; Status DC Fentanyl Citrate (Fentanyl 2ml Vial) 100 mcg STK-MED ONCE .ROUTE ; Start at 11:45; Stop 10/02/16 at 09:52; Status DC Dexamethasone Sodium Phosphate (Decadron) 20 mg STK-MED ONCE .ROUTE ; Start at 11:45; Stop 10/02/16 at 09:52; Status DC Ondansetron HCl (Zofran) 4 mg STK-MED ONCE .ROUTE ; Start 10/01/16 at 11:45; Stop 10/02/16 at 09:52; Status DC Ketorolac Tromethamine (Toradol For Or Only) 30 mg STK-MED ONCE INJ ; Start at 11:45; Stop 10/02/16 at 09:52; Status DC Glycopyrrolate (Robinul) 1 mg STK-MED ONCE .ROUTE ; Start 10/01/16 at 11:46; Stop 10/02/16 at 09:52; Status DC Neostigmine Methylsulfate 5 mg STK-MED ONCE .ROUTE ; Start 10/01/16 at 11:46; Stop 10/02/16 at 09:52; Status DC Bupivacaine HCl/ Epinephrine Bitart (Sensorcain-Mpf Epi 0.5%-1:[id number]) 30 ml STK -MED ONCE .ROUTE ; Start 10/01/16 at 12:57; Stop 10/02/16 at 09:54; Status DC Iohexol (Omnipaque 300 Mg/ml) 50 ml STK-MED ONCE .ROUTE ; Start 10/01/16 at 12: 58; Stop 10/02/16 at 09:54; Status DC Cellulose 1 each STK-MED ONCE .ROUTE ; Start 10/01/16 at 12:58; Stop 10/02/16 at 09:54; Status DC Bisacodyl (Dulcolax Supp) 10 mg STK-MED ONCE .ROUTE ; Start 10/01/16 at 12:58; Stop 10/02/16 at 09:54; Status DC Desflurane (Suprane) 60 ml STK-MED ONCE IH ; Start 10/01/16 at 13:18; Stop 10/02 at 09:54; Status DC Fentanyl Citrate (Fentanyl 2ml Vial) 100 mcg STK-MED ONCE .ROUTE ; Start at 13:21; Stop 10/02/16 at 09:54; Status DC Ephedrine Sulfate 50 mg STK-MED ONCE IV ; Start 10/01/16 at 13:23; Stop at 09:55; Status DC Esmolol HCl (Brevibloc) 100 mg STK-MED ONCE IV ; Start 10/01/16 at 13:49; Stop 10/02/16 at 09:55; Status DC Rocuronium Boswell (Zemuron) 50 mg STK-MED ONCE .ROUTE ; Start 10/01/16 at 13:50 ; Stop 10/02/16 at 09:55; Status DC Fentanyl Citrate (Fentanyl 2ml Vial) 100 mcg STK-MED ONCE .ROUTE ; Start at 14:13; Stop 10/02/16 at 09:56; Status DC Desflurane (Suprane) 90 ml STK-MED ONCE IH ; Start 10/01/16 at 14:57; Stop 10/02 at 09:56; Status DC Morphine Sulfate 10 mg STK-MED ONCE .ROUTE ; Start 10/01/16 at 15:16; Stop 10/02 at 09:57; Status DC Sodium Chloride (Sodium Chloride) 50 ml STK-MED ONCE IJ ; Start 10/01/16 at 15: 17; Stop 10/02/16 at 09:57; Status DC Famotidine 20 mg 20 mg STK-MED ONCE .ROUTE ; Start 10/01/16 at 16:20; Stop 10/02 at 09:58; Status DC Amino Acids/ Electrolytes (Clinimix E 2.75%-5% Solution) 1,000 ml @ 80 mls/hr [id number] IV Last administered on 10/03/16 02:05; Start 10/02/16 at 14:00 Naloxone HCl 0.4 mg 0.4 mg PRN Q2MIN PRN IV SEE INSTRUCTIONS; Start 10/03/16 at 09:15 Sodium Chloride 1,000 ml @ 25 mls/hr Q24H IV ; Start 10/03/16 at 09:09 Hydromorphone HCl (Dilaudid Standard CARE ANALYST) 30 ml @ 0 mls/hr CONT PRN PRN IV PROTOCOL Last administered on 10/03/16 10:14; Start 10/03/16 at 09:15 Metoprolol Tartrate (Lopressor) 2.5 mg Q6HRS IVP Last administered on 11:34; Start 10/03/16 at 12:00 Hydralazine HCl (Apresoline) 10 mg PRN Q4HRS PRN IVP ELEVATED BP, SEE COMMENTS ; Start 10/03/16 at 11:15 Active Scripts Active Reported Potassium Gluconate 99 Mg Tablet 99 Mg PO DAILY Men's Multi-Vitamin (Multivitamin) 1 Each Tablet 1 Each PO DAILY Aspirin 325 Mg Tablet 1 Tab PO DAILY Ranitidine Hcl 300 Mg Tablet 1 Tab PO BID Glipizide 10 Mg Tablet 1 Tab PO BIDWMEALS Zetia (Ezetimibe) 10 Mg Tablet 1 Tab PO DAILY Atorvastatin Calcium 80 Mg Tablet 1 Tab PO HS Metoprolol Tartrate 25 Mg Tablet 12.5 Mg PO HS Vitals/I & O Vital Sign - Last 24 Hours 10/02/16 10/02/16 10/02/16 10/02/16 12:00 12:00 13:00 14:00 Temp 98.2 98.2 Pulse 84 82 80 Resp 18 18 16 B/P 149/61 156/58 140/59 Pulse Ox 95 93 93 O2 Delivery Room Air Room Air Room Air Room Air 10/02/16 10/02/16 10/02/16 10/02/16 15:00 16:00 16:00 17:00 Temp 98.1 98.1 Pulse 100 84 82 Resp 20 20 20 B/P 135/93 132/5 147/61 Pulse Ox 92 94 93 O2 Delivery Room Air Room Air Room Air Room Air 10/02/16 10/02/16 10/02/16 10/02/16 18:00 19:00 20:00 20:00 Temp 98.8 98.8 Pulse 84 82 78 Resp B/P 154/60 144/58 152/52 Pulse Ox 91 93 93 O2 Delivery Room Air Room Air Room Air Room Air 10/02/16 10/02/16 10/02/16 10/02/16 20:32 21:00 22:00 23:00 Pulse 75 73 72 73 Resp B/P 152/52 145/59 153/84 146/49 Pulse Ox 92 93 92 O2 Delivery Room Air Room Air Room Air 10/03/16 10/03/16 10/03/16 10/03/16 00:00 00:00 01:00 01:29 Temp 99.5 99.5 Pulse 74 68 Resp B/P 165/54 157/63 Pulse Ox 93 93 92 O2 Delivery Room Air Room Air Room Air Room Air 10/03/16 10/03/16 10/03/16 10/03/16 02:00 02:00 03:00 04:00 Temp 99.5 99.5 Pulse 72 70 72 Resp B/P 155/59 169/54 171/67 Pulse Ox 93 93 92 93 O2 Delivery Room Air Room Air Room Air 10/03/16 10/03/16 10/03/16 10/03/16 04:00 05:00 06:00 07:00 Pulse 68 69 70 Resp B/P 166/60 164/62 163/56 Pulse Ox 91 91 94 O2 Delivery Room Air Room Air Room Air Room Air 10/03/16 10/03/16 10/03/16 10/03/16 08:00 08:00 09:12 10:00 Pulse 73 73 72 Resp 18 20 18 B/P 157/61 158/52 173/78 Pulse Ox 94 93 18 O2 Delivery Room Air Room Air Room Air Room Air 10/03/16 10/03/16 10/03/16 10/03/16 10:14 10:47 11:09 11:34 Pulse 71 74 Resp 20 B/P 172/63 172/63 Pulse Ox 93 93 O2 Delivery Room Air Room Air Room Air O2 Flow Rate 2.0 10/03/16 11:45 O2 Delivery Room Air O2 Flow Rate 2.0 Intake and Output 10/02/16 10/02/16 10/03/16 15:00 23:00 07:00 Intake Total 1261 ml 2115.0 ml Output Total 240 ml 747 ml 485 ml Balance -240 ml 514 ml 1630.0 ml EDDA CALERO MD Oct 03, 2016 12:02
--- NOTE | 2016-10-03 13:46 | PATHOLOGY ---
PATHOLOGY REPORT * * * * * * * * FINAL DIAGNOSIS: A. Gallbladder, open cholecystectomy: - Cholelithiasis. - Acute hemorrhagic, chronic fibrosing, and focal xanthogranulomatous cholecystitis. B. Liver, wedge biopsy: - Results to be reported separately. COMMENT: There are multiple gallbladder calculi, the largest of which is barrel-shaped and measures up to 5.7 cm in greatest dimension. Sections of the gallbladder show a marked acute hemorrhagic, chronic fibrosing, and focal xanthogranulomatous cholecystitis. There is no evidence of malignancy. The liver results will be reported separately. (JPM:mgr; d/t: 10/03/16) Special Stains: Trichrome, reticulin, iron, PAS, PAS with diastase (B1) REPORT ELECTRONICALLY SIGNED BY: Priya Hargrove M.D. DATE/TIME: 10/03/2016 13:46 * * * * * * * * GROSS PATHOLOGY: A. The specimen is received fresh for intraoperative consultation and is designated "gallbladder and contents." This consists of a gallbladder and numerous separately submitted calculi. There is a large barrel-shaped calculus measuring up to 5.7 cm in length and 4.1 cm in width. There are multiple yellow-dark brown multifaceted calculi, ranging from 0.9 up to 2.1 cm in greatest dimension. The segment of gallbladder measures up to 6.8 cm in length and 6.0 cm in width. There is an open end of the gallbladder which is irregular, somewhat friable, and hemorrhagic. The gallbladder serosa is pink-red to yellow-brown and focally hemorrhagic and roughened. The gallbladder mucosa is hemorrhagic and roughened. The gallbladder wall is thickened, hopkins-white, and rubbery. The gallbladder wall focally measures up to 1.6 cm in thickness. A telemarketing representative section of the gallbladder is submitted for frozen section as FSA1. The tissue remaining from frozen section is submitted for permanent sections as A1. B. The specimen is received in formalin and is designated "liver." This consists of a wedge of yellow-brown liver tissue measuring up to 3.0 x 1.4 x 1.2 cm. The capsular surface appears to have a finely nodular and focally hemorrhagic appearance. The specimen is serially sectioned perpendicular to the long axis. Sectioning reveals a hopkins nodular cut surface. Most of the specimen is submitted for microscopy as B1 and B2. (JPM:mgr; d/t: 10/02/16) FROZEN SECTION DIAGNOSIS: (Yogi Hargrove M.D.) A. Gallbladder: - Cholelithiasis with acute and chronic cholecystitis. The results are reported to Dr. Doyle in the operating room. Multiple additional sections of the gallbladder are submitted as A2-A8. (JPM:mgr; d/t: 10/01/16) Testing performed [place] [address] INITIAL CPT CODE(S): A; 83616, 51203 B; 84794 Professional services performed by [facility] [place] [address] Technical services performed by [facility] at [address] [place] [address], [facility] [address] [address]. SPECIMEN(S) RECEIVED: A.Gallbladder with contents B.Liver, wedge biopsy CLINICAL HISTORY: Acute cholecystitis with choledocholelithiasis PATIENT: PRIYA ARREOLA Eliana /AGE: 10 1945 (Age: 71) PATIENT #: [id number] ALT CASE #: SPECIMEN COLLECTION DATE: 10/01/2016 SPECIMEN RECEIVED DATE: 10/01/2016 [facility] - [id number] [place] [address] - PHONE: [phone] * * * END OF REPORT * * *
[2016-10-03] MEDS: ERTAPENEM 1 GM in IV NORMAL SALINE 50ML 50 ML IV SCH (17:19)
[2016-10-03] MEDS: ATORVASTATIN CALCIUM 40 MG TABLET. PO SCH (21:00)
[2016-10-04] VITALS (7 sets, daily range): BP systolic 139–174; BP diastolic 44–82
[2016-10-04] MEDS: METOPROLOL TARTRATE 5 MG/5 ML VIAL. IVP SCH ×4 (00:17→18:03)
[2016-10-04] MEDS: AA 2.75%/CALCIUM/LYTES/D5W 1,000 ML IV SCH ×2 (05:47→18:05)
[2016-10-04] MEDS: IV RINGERS,LACTATED 1000ML 1,000 ML IV SCH ×3 (06:43→20:29)
[2016-10-04] MEDS: INSULIN ASPART 300 UNITS/3 ML INSULN.PEN SQ SCH ×4 (06:49→18:08)
[2016-10-04] MEDS: MULTIVITAMIN with MINERAL TABLET. PO SCH (08:36)
[2016-10-04] MEDS: EZETIMIBE 10 MG TABLET PO SCH (08:36)
[2016-10-04] MEDS: IV NORMAL SALINE 1000ML BAG 1,000 ML IV SCH (09:09)
[2016-10-04] MEDS: FAMOTIDINE 20 MG/2 ML VIAL IVP SCH ×2 (09:27→21:14)
[2016-10-04] MEDS: ENOXAPARIN 40 MG/0.4 ML DISP.SYRIN. SQ SCH (09:28)
--- NOTE | 2016-10-04 10:05 | PDOC ---
LESLIE LOUISE PRODUCT MARKETING ANALYST 10/04/16 1005: SURGICAL PROGRESS NOTE Subjective tolerating tube feeds, no bowel movement yet urinating well ambulated incisional pain Vital Signs Vital Signs Date Time Temp Pulse Resp B/P Pulse Ox O2 Delivery O2 Flow Rate FiO2 10/04/16 06:44 70 140/44 10/04/16 04:00 98.7 20 94 Nasal Cannula 2.0 98.7 I&O Intake and Output 10/04/16 07:00 Intake Total 6567.5 ml Output Total 1810 ml Balance 4757.5 ml Intake Oral 0 ml IV Total 4272.5 ml Tube Feeding 195 ml Other 2100 ml Output Urine Total 1000 ml Drainage Total 810 ml General: Alert, Cooperative HEENT: Other (ng present) Abdomen: Soft, Other (ioana bilious, g tube to dd, j tube) Labs Laboratory Tests Test 10/02/16 14:09 10/02/16 16:54 10/03/16 00:03 10/03/16 05:33 Glucose (Fingerstick) 166mg/dL (70-99) 204mg/dL (70-99) 205mg/dL (70-99) 183mg/dL (70-99) Test 10/03/16 11:33 10/03/16 18:02 10/04/16 00:21 10/04/16 06:47 Glucose (Fingerstick) 175mg/dL (70-99) 177mg/dL (70-99) 193mg/dL (70-99) 220mg/dL (70-99) Laboratory Tests Test 10/03/16 11:33 10/03/16 18:02 10/04/16 00:21 10/04/16 06:47 Glucose (Fingerstick) 175mg/dL (70-99) 177mg/dL (70-99) 193mg/dL (70-99) 220mg/dL (70-99) Problem List Problems Medical Problems: (1) Cholecystoduodenal fistula Status: Acute (2) Cholelithiasis Status: Acute Assessment/Plan stable, continue tf, ng clamped(possibly out soon), G tube to DD Problems: ISABEL AGUILAR MD 10/04/16 1741: SURGICAL PROGRESS NOTE Assessment/Plan doing well, d/c NGT IOANA clearing start clears Problems: LESLIE LOUISE PRODUCT MARKETING ANALYST Oct 04, 2016 10:05 ISABEL AGUILAR MD Oct 04, 2016 17:41
[2016-10-04] MEDS: ERTAPENEM 1 GM in IV NORMAL SALINE 50ML 50 ML IV SCH (18:04)
[2016-10-04] MEDS: ATORVASTATIN CALCIUM 40 MG TABLET. PO SCH (21:14)
--- NOTE | 2016-10-04 21:27 | PDOC ---
PROGRESS NOTES Chief Complaint Chief Complaint CC: Gallstones A/P Symptomatic Cholelithiasis, Cholecystoduodenostomy fistula, s/p open cholecystectomy, liver biopsy, repair of duodenotomy, pyloric exclusion, gastrojejunostomy, G-tube, J-tube placement. 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 running mild SSI wound care intake and out put drain care ProcalAmine BP control GS following, appreciate recommendations. labs reviewed, monitor hemoglobin. History of Present Illness History of Present Illness doing better abdominal pain better pt seen this am around 10 am Vitals Vitals Vital Signs Date Time Temp Pulse Resp B/P Pulse Ox O2 Delivery O2 Flow Rate FiO2 10/04/16 20:00 99.1 63 20 142/60 95 Room Air 99.1 10/04/16 16:00 2.0 Physical Exam General: Alert, Cooperative Heart: Regular rate, Normal S1, Normal S2 Lungs: Clear Abdomen: Soft, Other (no bowel movement) Extremities: No clubbing, No cyanosis Skin: No rashes Labs LABS Laboratory Tests Test 10/04/16 00:21 10/04/16 06:47 10/04/16 13:43 10/04/16 18:07 Glucose (Fingerstick) 193mg/dL (70-99) 220mg/dL (70-99) 207mg/dL (70-99) 164mg/dL (70-99) Assessment and Plan Assessmemt and Plan Problems Medical Problems: (1) Cholecystoduodenal fistula Status: Acute (2) Cholelithiasis Status: Acute Problems: Comment Review of Relevant I have reviewed the following items jose (where applicable) has been applied. Labs Laboratory Tests Test 10/03/16 00:03 10/03/16 05:33 10/03/16 11:33 10/03/16 18:02 Glucose (Fingerstick) 205mg/dL (70-99) 183mg/dL (70-99) 175mg/dL (70-99) 177mg/dL (70-99) Test 10/04/16 00:21 10/04/16 06:47 10/04/16 13:43 10/04/16 18:07 Glucose (Fingerstick) 193mg/dL (70-99) 220mg/dL (70-99) 207mg/dL (70-99) 164mg/dL (70-99) Laboratory Tests Test 10/04/16 00:21 10/04/16 06:47 10/04/16 13:43 10/04/16 18:07 Glucose (Fingerstick) 193mg/dL (70-99) 220mg/dL (70-99) 207mg/dL (70-99) 164mg/dL (70-99) Medications Current Medications Sodium Chloride (Iv Sodium Chloride 0.45%) 1,000 ml @ 100 mls/hr Q10H IV Last administered on 09/29/16 08:18; Start 09/27/16 at 16:50; Stop 09/29/16 at 14:58 ; Status DC Ondansetron HCl (Zofran) 4 mg PRN Q6HRS PRN IV NAUSEA/VOMITING 1ST CHOICE; Start 09/27/16 at 17:00; Stop 10/03/16 at 11:06; Status DC Prochlorperazine Edisylate (Compazine) 10 mg PRN Q6HRS PRN IV NAUSEA/VOMITING 2ND CHOICE; Start 09/27/16 at 17:00 Prochlorperazine (Compazine) 25 mg PRN Q12HR PRN ND NAUSEA/VOMITING; Start at 17:00 Al Hydrox/Mg Hydrox/Simethicone (Mylanta Plus Xs) 30 ml PRN Q3HRS PRN PO HEARTBURN / GAS; Start 09/27/16 at 17:00 Calcium Carbonate/ Glycine (Tums) 500 mg PRN Q3HRS PRN PO UPSET STOMACH; Start 09/27/16 at 17:00 Oxycodone HCl (Roxicodone) 5 mg PRN Q3HRS PRN PO BREAKTHROUGH PAIN; Start 09/27 at 17:00 Morphine Sulfate 2 mg PRN Q2HR PRN IV MILD-MOD PAIN Last administered on 01:29; Start 09/27/16 at 17:00 Magnesium Hydroxide (Milk Of Magnesia) 2,400 mg PRN Q12HR PRN PO CONSTIPATION; Start 09/27/16 at 17:00; Stop 09/27/16 at 17:15; Status DC Lactulose 20 gm PRN Q12HR PRN PO CONSTIPATION; Start 09/27/16 at 17:00; Stop at 17:15; Status DC Bisacodyl (Dulcolax Supp) 10 mg PRN DAILY PRN ND CONSTIPATION; Start 09/27/16 at 17:00; Stop 09/27/16 at 17:15; Status DC EZETIMIBE (Zetia) 10 mg DAILY PO Last administered on 09/30/16 08:46; Start at 09:00 Metoprolol Tartrate (Lopressor) 12.5 mg HS PO Last administered on 09/30/16 21 :28; Start 09/27/16 at 21:00; Stop 10/03/16 at 11:08; Status DC Atorvastatin Calcium (Lipitor) 80 mg QHS PO Last administered on 10/04/16 21: 14; Start 09/27/16 at 21:00 Glipizide (Glucotrol) 10 mg BIDBFRMEAL PO ; Start 09/27/16 at 17:00; Stop at 17:15; Status DC Multivitamins/ Calcium (Thera M Plus) 1 tab DAILY PO Last administered on 20:31; Start 09/28/16 at 09:00 Non-Formulary Medication 99 mg DAILY PO ; Start 09/28/16 at 09:00; Status UNV Famotidine (Pepcid) 20 mg BID PO Last administered on 09/30/16 21:28; Start at 21:00; Stop 10/03/16 at 11:05; Status DC Insulin Aspart (Novolog) 0-5 UNITS TIDWMEALS SQ Last administered on 09/30/16 12:04; Start 09/28/16 at 12:00; Stop 10/02/16 at 08:45; Status DC Dextrose 12.5 gm PRN Q15MIN PRN IV SEE COMMENTS; Start 09/28/16 at 09:45 Acetaminophen 650 mg 650 mg PRN Q6HRS PRN PO MILD PAIN / TEMP; Start 09/29/16 at 15:00 Levofloxacin/ Dextrose (LEVAQUIN 750mg PREMIX) 150 ml @ 100 mls/hr 1X PREOP PRN IV personal banking representative to OR Last administered on 10/01/16 13:12; Start 10/01/16 at 09: 15; Stop 10/02/16 at 18:00; Status DC Ondansetron HCl (Zofran) 4 mg PRN Q6HRS PRN IV Nausea; Start 10/01/16 at 12:15 ; Stop 10/02/16 at 12:14; Status DC Fentanyl Citrate (Fentanyl 2ml Vial) 25 mcg PRN Q5MIN PRN IV MILD PAIN; Start 10/01/16 at 12:15; Stop 10/02/16 at 12:14; Status DC Fentanyl Citrate (Fentanyl 2ml Vial) 50 mcg PRN Q5MIN PRN IV MODERATE PAIN Last administered on 10/01/16 18:00; Start 10/01/16 at 12:15; Stop 10/02/16 at 12:14; Status DC Morphine Sulfate 1 mg 1 mg PRN Q10MIN PRN IV SEVERE PAIN; Start 10/01/16 at 12: 15; Stop 10/02/16 at 12:14; Status DC Lactated Ringer's (Iv Lactated Ringers) 1,000 ml @ 0 mls/hr Q0M IV Last administered on 10/01/16 12:18; Start 10/01/16 at 12:09; Stop 10/02/16 at 00:08 ; Status DC Lidocaine HCl 2 ml 1X PRN PRN ID IV START; Start 10/01/16 at 12:15; Stop at 12:14; Status DC Hydromorphone HCl (Dilaudid) 0.5 mg PRN Q10MIN PRN IV SEV PAIN,Second choice; Start 10/01/16 at 12:15; Stop 10/02/16 at 12:14; Status DC Prochlorperazine Edisylate 5 mg 5 mg PACU PRN PRN IV NAUSEA Last administered on 10/01/16 17:23; Start 10/01/16 at 12:15; Stop 10/02/16 at 12:14; Status DC Heparin Sodium (Porcine)/Sodium Chloride (Iv Sodium Chloride 0.9% 1000ml Bag) 1, 001 ml @ 1,001 mls/hr 1X PERIOP ONCE IRR ; Start 10/01/16 at 13:00; Stop 10/01 at 14:04; Status DC Bupivacaine HCl/ Epinephrine Bitart 30 ml 30 ml STK-MED ONCE IJ Last administered on 10/01/16 13:29; Start 10/01/16 at 13:29; Stop 10/01/16 at 14:04 ; Status DC Ertapenem/Sodium Chloride (Invanz/Iv Sodium Chloride 0.9% 50ml) 50 ml @ 100 mls /hr Q24H IV Last administered on 10/04/16 18:04; Start 10/01/16 at 17:00 Famotidine (Pepcid) 20 mg BID IVP Last administered on 10/04/16 21:14; Start 10/01/16 at 21:00 Enoxaparin Sodium (Lovenox 40mg Syringe) 40 mg Q24H SQ ; Start 10/01/16 at 17:00 ; Stop 10/02/16 at 01:44; Status DC Sodium Chloride 3 ml 3 ml QSHIFT PRN IV AFTER MEDS AND BLOOD DRAWS; Start 10/01 at 16:45 Lactated Ringer's (Iv Lactated Ringers) 1,000 ml @ 100 mls/hr Q10H IV Last administered on 10/04/16 20:29; Start 10/01/16 at 16:39 Naloxone HCl 0.4 mg 0.4 mg PRN Q2MIN PRN IV SEE INSTRUCTIONS; Start 10/01/16 at 16:45; Stop 10/03/16 at 11:06; Status DC Sodium Chloride 1,000 ml @ 25 mls/hr Q24H IV ; Start 10/01/16 at 16:39; Stop at 11:05; Status DC Morphine Sulfate (Morphine 30 Mg/ 30 ml SENIOR DATASTAGE DEVELOPER) 30 ml @ 0 mls/hr CONT PRN PRN IV PROTOCOL Last administered on 10/01/16 17:34; Start 10/01/16 at 16:45; Stop at 09:09; Status DC Ondansetron HCl (Zofran) 4 mg PRN Q6HRS PRN IV NAUESA, 1ST CHOICE; Start at 16:45 Enoxaparin Sodium (Lovenox 40mg Syringe) 40 mg Q24H SQ Last administered on 09:28; Start 10/02/16 at 09:00 Insulin Aspart (Novolog) 0-5 UNITS Q6HRS SQ Last administered on 10/04/16 18: 08; Start 10/02/16 at 09:00 Lidocaine HCl 5 ml 5 ml STK-MED ONCE .ROUTE ; Start 10/01/16 at 10:50; Stop at 09:51; Status DC Propofol (Diprivan) 100 ml @ As Directed STK-MED ONCE IV ; Start 10/01/16 at 10 :50; Stop 10/02/16 at 09:51; Status DC Rocuronium [place] (Zemuron) 50 mg STK-MED ONCE .ROUTE ; Start 10/01/16 at 10:50 ; Stop 10/02/16 at 09:51; Status DC Fentanyl Citrate (Fentanyl 2ml Vial) 100 mcg STK-MED ONCE .ROUTE ; Start at 11:45; Stop 10/02/16 at 09:52; Status DC Dexamethasone Sodium Phosphate (Decadron) 20 mg STK-MED ONCE .ROUTE ; Start at 11:45; Stop 10/02/16 at 09:52; Status DC Ondansetron HCl (Zofran) 4 mg STK-MED ONCE .ROUTE ; Start 10/01/16 at 11:45; Stop 10/02/16 at 09:52; Status DC Ketorolac Tromethamine (Toradol For Or Only) 30 mg STK-MED ONCE INJ ; Start at 11:45; Stop 10/02/16 at 09:52; Status DC Glycopyrrolate (Robinul) 1 mg STK-MED ONCE .ROUTE ; Start 10/01/16 at 11:46; Stop 10/02/16 at 09:52; Status DC Neostigmine Methylsulfate 5 mg STK-MED ONCE .ROUTE ; Start 10/01/16 at 11:46; Stop 10/02/16 at 09:52; Status DC Bupivacaine HCl/ Epinephrine Bitart (Sensorcain-Mpf Epi 0.5%-1:[id number]) 30 ml STK -MED ONCE .ROUTE ; Start 10/01/16 at 12:57; Stop 10/02/16 at 09:54; Status DC Iohexol (Omnipaque 300 Mg/ml) 50 ml STK-MED ONCE .ROUTE ; Start 10/01/16 at 12: 58; Stop 10/02/16 at 09:54; Status DC Cellulose 1 each STK-MED ONCE .ROUTE ; Start 10/01/16 at 12:58; Stop 10/02/16 at 09:54; Status DC Bisacodyl (Dulcolax Supp) 10 mg STK-MED ONCE .ROUTE ; Start 10/01/16 at 12:58; Stop 10/02/16 at 09:54; Status DC Desflurane (Suprane) 60 ml STK-MED ONCE IH ; Start 10/01/16 at 13:18; Stop 10/02 at 09:54; Status DC Fentanyl Citrate (Fentanyl 2ml Vial) 100 mcg STK-MED ONCE .ROUTE ; Start at 13:21; Stop 10/02/16 at 09:54; Status DC Ephedrine Sulfate 50 mg STK-MED ONCE IV ; Start 10/01/16 at 13:23; Stop at 09:55; Status DC Esmolol HCl (Brevibloc) 100 mg STK-MED ONCE IV ; Start 10/01/16 at 13:49; Stop 10/02/16 at 09:55; Status DC Rocuronium [place] (Zemuron) 50 mg STK-MED ONCE .ROUTE ; Start 10/01/16 at 13:50 ; Stop 10/02/16 at 09:55; Status DC Fentanyl Citrate (Fentanyl 2ml Vial) 100 mcg STK-MED ONCE .ROUTE ; Start at 14:13; Stop 10/02/16 at 09:56; Status DC Desflurane (Suprane) 90 ml STK-MED ONCE IH ; Start 10/01/16 at 14:57; Stop 10/02 at 09:56; Status DC Morphine Sulfate 10 mg STK-MED ONCE .ROUTE ; Start 10/01/16 at 15:16; Stop 10/02 at 09:57; Status DC Sodium Chloride (Sodium Chloride) 50 ml STK-MED ONCE IJ ; Start 10/01/16 at 15: 17; Stop 10/02/16 at 09:57; Status DC Famotidine 20 mg 20 mg STK-MED ONCE .ROUTE ; Start 10/01/16 at 16:20; Stop 10/02 at 09:58; Status DC Amino Acids/ Electrolytes (Clinimix E 2.75%-5% Solution) 1,000 ml @ 80 mls/hr [id number] IV Last administered on 10/04/16 18:05; Start 10/02/16 at 14:00 Naloxone HCl 0.4 mg 0.4 mg PRN Q2MIN PRN IV SEE INSTRUCTIONS; Start 10/03/16 at 09:15 Sodium Chloride 1,000 ml @ 25 mls/hr Q24H IV ; Start 10/03/16 at 09:09 Hydromorphone HCl (Dilaudid Standard SENIOR DATASTAGE DEVELOPER) 30 ml @ 0 mls/hr CONT PRN PRN IV PROTOCOL Last administered on 10/03/16 10:14; Start 10/03/16 at 09:15 Metoprolol Tartrate (Lopressor) 2.5 mg Q6HRS IVP Last administered on 18:03; Start 10/03/16 at 12:00 Hydralazine HCl (Apresoline) 10 mg PRN Q4HRS PRN IVP ELEVATED BP, SEE COMMENTS ; Start 10/03/16 at 11:15 Active Scripts Active Reported Potassium Gluconate 99 Mg Tablet 99 Mg PO DAILY Men's Multi-Vitamin (Multivitamin) 1 Each Tablet 1 Each PO DAILY Aspirin 325 Mg Tablet 1 Tab PO DAILY Ranitidine Hcl 300 Mg Tablet 1 Tab PO BID Glipizide 10 Mg Tablet 1 Tab PO BIDWMEALS Zetia (Ezetimibe) 10 Mg Tablet 1 Tab PO DAILY Atorvastatin Calcium 80 Mg Tablet 1 Tab PO HS Metoprolol Tartrate 25 Mg Tablet 12.5 Mg PO HS Vitals/I & O Vital Sign - Last 24 Hours 10/04/16 10/04/16 10/04/16 10/04/16 00:00 00:17 04:00 06:44 Temp 99.2 98.7 99.2 98.7 Pulse 62 73 68 70 Resp 20 20 B/P 161/63 156/71 145/59 140/44 Pulse Ox 97 94 O2 Delivery Nasal Cannula Nasal Cannula O2 Flow Rate 2.0 2.0 10/04/16 10/04/16 10/04/16 10/04/16 08:00 08:00 12:00 13:57 Temp 98.7 98.7 98.7 98.7 Pulse 68 68 75 Resp 20 20 B/P 140/44 139/60 139/60 Pulse Ox 94 94 O2 Delivery Nasal Cannula Room Air Nasal Cannula O2 Flow Rate 2.0 2.0 10/04/16 10/04/16 10/04/16 10/04/16 16:00 18:03 20:00 20:00 Temp 98.7 99.1 98.7 99.1 Pulse 68 72 63 Resp 20 20 B/P 174/82 174/62 142/60 Pulse Ox 94 95 O2 Delivery Nasal Cannula Room Air Room Air O2 Flow Rate 2.0 Intake and Output 10/03/16 10/03/16 10/04/16 15:00 23:00 07:00 Intake Total 4351 ml 2216.5 ml Output Total 400 ml 570 ml 840 ml Balance -400 ml 3781 ml 1376.5 ml EDDA CALERO MD Oct 04, 2016 21:27
[2016-10-05] VITALS (7 sets, daily range): BP systolic 129–152; BP diastolic 53–58
[2016-10-05] MEDS: METOPROLOL TARTRATE 5 MG/5 ML VIAL. IVP SCH ×4 (00:42→17:12)
[2016-10-05] MEDS: AA 2.75%/CALCIUM/LYTES/D5W 1,000 ML IV SCH (05:44)
[2016-10-05] MEDS: IV RINGERS,LACTATED 1000ML 1,000 ML IV SCH ×2 (05:45→17:12)
[2016-10-05] MEDS: INSULIN ASPART 300 UNITS/3 ML INSULN.PEN SQ SCH ×4 (05:50→17:09)
[2016-10-05] MEDS: FAMOTIDINE 20 MG/2 ML VIAL IVP SCH ×2 (08:50→21:13)
[2016-10-05] MEDS: ENOXAPARIN 40 MG/0.4 ML DISP.SYRIN. SQ SCH (08:50)
[2016-10-05] MEDS: IV NORMAL SALINE 1000ML BAG 1,000 ML IV SCH (08:50)
[2016-10-05] MEDS: MULTIVITAMIN with MINERAL TABLET. PO SCH (08:50)
[2016-10-05] MEDS: EZETIMIBE 10 MG TABLET PO SCH (08:50)
--- NOTE | 2016-10-05 09:31 | PDOC ---
SURGICAL PROGRESS NOTE Subjective tolerating clears pain managed Vital Signs Vital Signs Date Time Temp Pulse Resp B/P Pulse Ox O2 Delivery O2 Flow Rate FiO2 10/05/16 07:00 98.0 65 20 129/58 92 Room Air 98.0 10/04/16 16:00 2.0 I&O Intake and Output 10/05/16 07:00 Intake Total 3791 ml Output Total 2050 ml Balance 1741 ml Intake Oral 30 ml IV Total 3761 ml Output Urine Total 1025 ml Drainage Total 1025 ml # Voids 2 General: Alert, Oriented X3, Cooperative, No acute distress Abdomen: Soft, Other (g tube and j tube in place, ioana bilious(body cleaner)) Labs Laboratory Tests Test 10/03/16 11:33 10/03/16 18:02 10/04/16 00:21 10/04/16 06:47 Glucose (Fingerstick) 175mg/dL (70-99) 177mg/dL (70-99) 193mg/dL (70-99) 220mg/dL (70-99) Test 10/04/16 13:43 10/04/16 18:07 10/05/16 00:33 10/05/16 05:08 Glucose (Fingerstick) 207mg/dL (70-99) 164mg/dL (70-99) 193mg/dL (70-99) 191mg/dL (70-99) Laboratory Tests Test 10/04/16 13:43 10/04/16 18:07 10/05/16 00:33 10/05/16 05:08 Glucose (Fingerstick) 207mg/dL (70-99) 164mg/dL (70-99) 193mg/dL (70-99) 191mg/dL (70-99) Problem List Problems Medical Problems: (1) Cholecystoduodenal fistula Status: Acute (2) Cholelithiasis Status: Acute Assessment/Plan stable, continue TF, Clears Problems: LESLIE LOUISE APRN Oct 05, 2016 09:31
--- NOTE | 2016-10-05 12:38 | PDOC ---
PROGRESS NOTES Chief Complaint Chief Complaint 1. Cholelithiasis s/p open Cholecystectomy w/ liver biopsy, repair of duodenotomy, pyloric exclusion, gastrojejunostomy, G-tube placement, J-tube placement 2. Cholcystoduodenostomy fistula 3. HTN 4. Type 2 DM 5. Hyperlipidemia 6. Hx of CABG 7. Obese History of Present Illness History of Present Illness Pt sitting up talking with upon arrival to room this AM. Still feeling weak but has been working with PT/OT as tolerated. Pain is still present especially at incision site. [facility] and - Referral to LTAC pending; For now continue treatment as directed Vitals Vitals Vital Signs Date Time Temp Pulse Resp B/P Pulse Ox O2 Delivery O2 Flow Rate FiO2 10/05/16 12:03 66 137/53 10/05/16 11:00 98.1 20 93 Room Air 98.1 10/04/16 16:00 2.0 Physical Exam General: Alert, Oriented X3, Cooperative, No acute distress Heart: Regular rate, Normal S1, Normal S2, No murmurs Lungs: Clear, Other (no wheezes or crackles) Abdomen: Soft, Other (g tube and j tube in place, ioana bilious approx 10 ml out put, Dressings C/D/I over IOANA, some tenderness to palpation, Large closed incision in RUQ healing well) Extremities: No clubbing, No cyanosis, No edema Skin: No rashes, No breakdown Labs LABS Laboratory Tests Test 10/04/16 13:43 10/04/16 18:07 10/05/16 00:33 10/05/16 05:08 Glucose (Fingerstick) 207mg/dL (70-99) 164mg/dL (70-99) 193mg/dL (70-99) 191mg/dL (70-99) Review of Systems Review of Systems Complaining of Pain at site of incision Complaining of weakness All other ROS Negative Assessment and Plan Assessmemt and Plan Problems Medical Problems: (1) Cholecystoduodenal fistula Status: Acute (2) Cholelithiasis Status: Acute 1. Cholelithiasis s/p open Cholecystectomy w/ liver biopsy, repair of duodenotomy, pyloric exclusion, gastrojejunostomy, G-tube placement, J-tube placement 2. Cholcystoduodenostomy fistula 3. HTN 4. Type 2 DM 5. Hyperlipidemia 6. Hx of CABG 7. Obese Plan: - POD # 4 - Continue care per floor protocol - General Surgery on case- Appreciate Recommendations and help on case - s/p open Cholecystectomy w/ liver biopsy, repair of duodenotomy, pyloric exclusion, gastrojejunostomy, G-tube placement, J-tube placement - Continue Care per General Surgery Recommendations - Monitor IOANA Drain at site of open Cholecystectomy incision - J Tube in place for Tube feedings; continue to monitor - Continue feedings and procalamine - G Tube in place for gastric suctioning: continue to monitor - Continue regular Wound Care - Dilaudid TEXTURING MACHINE FIXER in place for pain control - Monitor regular I&Os of all drains - Continue Regular Home Medications - IV Hydralazine and Metoprolol in place for BP Control - Tolerating Clears at this time; will continue clears as recommended by general surgery - Will obtain regular labs in AM - PT/OT to evaluate and treat - Dispo: Plan is for possible discharge to LTAC ([facility] referral pending) on completion of treatment here at [facility] Problems: Comment Review of Relevant I have reviewed the following items jose (where applicable) has been applied. Labs Laboratory Tests Test 10/03/16 18:02 10/04/16 00:21 10/04/16 06:47 10/04/16 13:43 Glucose (Fingerstick) 177mg/dL (70-99) 193mg/dL (70-99) 220mg/dL (70-99) 207mg/dL (70-99) Test 10/04/16 18:07 10/05/16 00:33 10/05/16 05:08 Glucose (Fingerstick) 164mg/dL (70-99) 193mg/dL (70-99) 191mg/dL (70-99) Laboratory Tests Test 10/04/16 13:43 10/04/16 18:07 10/05/16 00:33 10/05/16 05:08 Glucose (Fingerstick) 207mg/dL (70-99) 164mg/dL (70-99) 193mg/dL (70-99) 191mg/dL (70-99) Medications Current Medications Sodium Chloride (Iv Sodium Chloride 0.45%) 1,000 ml @ 100 mls/hr Q10H IV Last administered on 09/29/16 08:18; Start 09/27/16 at 16:50; Stop 09/29/16 at 14:58 ; Status DC Ondansetron HCl (Zofran) 4 mg PRN Q6HRS PRN IV NAUSEA/VOMITING 1ST CHOICE; Start 09/27/16 at 17:00; Stop 10/03/16 at 11:06; Status DC Prochlorperazine Edisylate (Compazine) 10 mg PRN Q6HRS PRN IV NAUSEA/VOMITING 2ND CHOICE; Start 09/27/16 at 17:00 Prochlorperazine (Compazine) 25 mg PRN Q12HR PRN AR NAUSEA/VOMITING; Start at 17:00 Al Hydrox/Mg Hydrox/Simethicone (Mylanta Plus Xs) 30 ml PRN Q3HRS PRN PO HEARTBURN / GAS; Start 09/27/16 at 17:00 Calcium Carbonate/ Glycine (Tums) 500 mg PRN Q3HRS PRN PO UPSET STOMACH; Start 09/27/16 at 17:00 Oxycodone HCl (Roxicodone) 5 mg PRN Q3HRS PRN PO BREAKTHROUGH PAIN; Start 09/27 at 17:00 Morphine Sulfate 2 mg PRN Q2HR PRN IV MILD-MOD PAIN Last administered on 01:29; Start 09/27/16 at 17:00 Magnesium Hydroxide (Milk Of Magnesia) 2,400 mg PRN Q12HR PRN PO CONSTIPATION; Start 09/27/16 at 17:00; Stop 09/27/16 at 17:15; Status DC Lactulose 20 gm PRN Q12HR PRN PO CONSTIPATION; Start 09/27/16 at 17:00; Stop at 17:15; Status DC Bisacodyl (Dulcolax Supp) 10 mg PRN DAILY PRN AR CONSTIPATION; Start 09/27/16 at 17:00; Stop 09/27/16 at 17:15; Status DC EZETIMIBE (Zetia) 10 mg DAILY PO Last administered on 10/05/16 08:50; Start at 09:00 Metoprolol Tartrate (Lopressor) 12.5 mg HS PO Last administered on 09/30/16 21 :28; Start 09/27/16 at 21:00; Stop 10/03/16 at 11:08; Status DC Atorvastatin Calcium (Lipitor) 80 mg QHS PO Last administered on 10/04/16 21: 14; Start 09/27/16 at 21:00 Glipizide (Glucotrol) 10 mg BIDBFRMEAL PO ; Start 09/27/16 at 17:00; Stop at 17:15; Status DC Multivitamins/ Calcium (Thera M Plus) 1 tab DAILY PO Last administered on 08:50; Start 09/28/16 at 09:00 Non-Formulary Medication 99 mg DAILY PO ; Start 09/28/16 at 09:00; Status UNV Famotidine (Pepcid) 20 mg BID PO Last administered on 09/30/16 21:28; Start at 21:00; Stop 10/03/16 at 11:05; Status DC Insulin Aspart (Novolog) 0-5 UNITS TIDWMEALS SQ Last administered on 09/30/16 12:04; Start 09/28/16 at 12:00; Stop 10/02/16 at 08:45; Status DC Dextrose 12.5 gm PRN Q15MIN PRN IV SEE COMMENTS; Start 09/28/16 at 09:45 Acetaminophen 650 mg 650 mg PRN Q6HRS PRN PO MILD PAIN / TEMP; Start 09/29/16 at 15:00 Levofloxacin/ Dextrose (LEVAQUIN 750mg PREMIX) 150 ml @ 100 mls/hr 1X PREOP PRN IV customer acquisition specialist to OR Last administered on 10/01/16 13:12; Start 10/01/16 at 09: 15; Stop 10/02/16 at 18:00; Status DC Ondansetron HCl (Zofran) 4 mg PRN Q6HRS PRN IV Nausea; Start 10/01/16 at 12:15 ; Stop 10/02/16 at 12:14; Status DC Fentanyl Citrate (Fentanyl 2ml Vial) 25 mcg PRN Q5MIN PRN IV MILD PAIN; Start 10/01/16 at 12:15; Stop 10/02/16 at 12:14; Status DC Fentanyl Citrate (Fentanyl 2ml Vial) 50 mcg PRN Q5MIN PRN IV MODERATE PAIN Last administered on 10/01/16 18:00; Start 10/01/16 at 12:15; Stop 10/02/16 at 12:14; Status DC Morphine Sulfate 1 mg 1 mg PRN Q10MIN PRN IV SEVERE PAIN; Start 10/01/16 at 12: 15; Stop 10/02/16 at 12:14; Status DC Lactated Ringer's (Iv Lactated Ringers) 1,000 ml @ 0 mls/hr Q0M IV Last administered on 10/01/16 12:18; Start 10/01/16 at 12:09; Stop 10/02/16 at 00:08 ; Status DC Lidocaine HCl 2 ml 1X PRN PRN ID IV START; Start 10/01/16 at 12:15; Stop at 12:14; Status DC Hydromorphone HCl (Dilaudid) 0.5 mg PRN Q10MIN PRN IV SEV PAIN,Second choice; Start 10/01/16 at 12:15; Stop 10/02/16 at 12:14; Status DC Prochlorperazine Edisylate 5 mg 5 mg PACU PRN PRN IV NAUSEA Last administered on 10/01/16 17:23; Start 10/01/16 at 12:15; Stop 10/02/16 at 12:14; Status DC Heparin Sodium (Porcine)/Sodium Chloride (Iv Sodium Chloride 0.9% 1000ml Bag) 1, 001 ml @ 1,001 mls/hr 1X PERIOP ONCE IRR ; Start 10/01/16 at 13:00; Stop 10/01 at 14:04; Status DC Bupivacaine HCl/ Epinephrine Bitart 30 ml 30 ml STK-MED ONCE IJ Last administered on 10/01/16 13:29; Start 10/01/16 at 13:29; Stop 10/01/16 at 14:04 ; Status DC Ertapenem/Sodium Chloride (Invanz/Iv Sodium Chloride 0.9% 50ml) 50 ml @ 100 mls /hr Q24H IV Last administered on 10/04/16 18:04; Start 10/01/16 at 17:00 Famotidine (Pepcid) 20 mg BID IVP Last administered on 10/05/16 08:50; Start 10/01/16 at 21:00 Enoxaparin Sodium (Lovenox 40mg Syringe) 40 mg Q24H SQ ; Start 10/01/16 at 17:00 ; Stop 10/02/16 at 01:44; Status DC Sodium Chloride 3 ml 3 ml QSHIFT PRN IV AFTER MEDS AND BLOOD DRAWS; Start 10/01 at 16:45 Lactated Ringer's (Iv Lactated Ringers) 1,000 ml @ 100 mls/hr Q10H IV Last administered on 10/05/16 05:45; Start 10/01/16 at 16:39 Naloxone HCl 0.4 mg 0.4 mg PRN Q2MIN PRN IV SEE INSTRUCTIONS; Start 10/01/16 at 16:45; Stop 10/03/16 at 11:06; Status DC Sodium Chloride 1,000 ml @ 25 mls/hr Q24H IV ; Start 10/01/16 at 16:39; Stop at 11:05; Status DC Morphine Sulfate (Morphine 30 Mg/ 30 ml TEXTURING MACHINE FIXER) 30 ml @ 0 mls/hr CONT PRN PRN IV PROTOCOL Last administered on 10/01/16 17:34; Start 10/01/16 at 16:45; Stop at 09:09; Status DC Ondansetron HCl (Zofran) 4 mg PRN Q6HRS PRN IV NAUESA, 1ST CHOICE; Start at 16:45 Enoxaparin Sodium (Lovenox 40mg Syringe) 40 mg Q24H SQ Last administered on 08:50; Start 10/02/16 at 09:00 Insulin Aspart (Novolog) 0-5 UNITS Q6HRS SQ Last administered on 10/05/16 12: 07; Start 10/02/16 at 09:00 Lidocaine HCl 5 ml 5 ml STK-MED ONCE .ROUTE ; Start 10/01/16 at 10:50; Stop at 09:51; Status DC Propofol (Diprivan) 100 ml @ As Directed STK-MED ONCE IV ; Start 10/01/16 at 10 :50; Stop 10/02/16 at 09:51; Status DC Rocuronium [place] (Zemuron) 50 mg STK-MED ONCE .ROUTE ; Start 10/01/16 at 10:50 ; Stop 10/02/16 at 09:51; Status DC Fentanyl Citrate (Fentanyl 2ml Vial) 100 mcg STK-MED ONCE .ROUTE ; Start at 11:45; Stop 10/02/16 at 09:52; Status DC Dexamethasone Sodium Phosphate (Decadron) 20 mg STK-MED ONCE .ROUTE ; Start at 11:45; Stop 10/02/16 at 09:52; Status DC Ondansetron HCl (Zofran) 4 mg STK-MED ONCE .ROUTE ; Start 10/01/16 at 11:45; Stop 10/02/16 at 09:52; Status DC Ketorolac Tromethamine (Toradol For Or Only) 30 mg STK-MED ONCE INJ ; Start at 11:45; Stop 10/02/16 at 09:52; Status DC Glycopyrrolate (Robinul) 1 mg STK-MED ONCE .ROUTE ; Start 10/01/16 at 11:46; Stop 10/02/16 at 09:52; Status DC Neostigmine Methylsulfate 5 mg STK-MED ONCE .ROUTE ; Start 10/01/16 at 11:46; Stop 10/02/16 at 09:52; Status DC Bupivacaine HCl/ Epinephrine Bitart (Sensorcain-Mpf Epi 0.5%-1:[id number]) 30 ml STK -MED ONCE .ROUTE ; Start 10/01/16 at 12:57; Stop 10/02/16 at 09:54; Status DC Iohexol (Omnipaque 300 Mg/ml) 50 ml STK-MED ONCE .ROUTE ; Start 10/01/16 at 12: 58; Stop 10/02/16 at 09:54; Status DC Cellulose 1 each STK-MED ONCE .ROUTE ; Start 10/01/16 at 12:58; Stop 10/02/16 at 09:54; Status DC Bisacodyl (Dulcolax Supp) 10 mg STK-MED ONCE .ROUTE ; Start 10/01/16 at 12:58; Stop 10/02/16 at 09:54; Status DC Desflurane (Suprane) 60 ml STK-MED ONCE IH ; Start 10/01/16 at 13:18; Stop 10/02 at 09:54; Status DC Fentanyl Citrate (Fentanyl 2ml Vial) 100 mcg STK-MED ONCE .ROUTE ; Start at 13:21; Stop 10/02/16 at 09:54; Status DC Ephedrine Sulfate 50 mg STK-MED ONCE IV ; Start 10/01/16 at 13:23; Stop at 09:55; Status DC Esmolol HCl (Brevibloc) 100 mg STK-MED ONCE IV ; Start 10/01/16 at 13:49; Stop 10/02/16 at 09:55; Status DC Rocuronium [place] (Zemuron) 50 mg STK-MED ONCE .ROUTE ; Start 10/01/16 at 13:50 ; Stop 10/02/16 at 09:55; Status DC Fentanyl Citrate (Fentanyl 2ml Vial) 100 mcg STK-MED ONCE .ROUTE ; Start at 14:13; Stop 10/02/16 at 09:56; Status DC Desflurane (Suprane) 90 ml STK-MED ONCE IH ; Start 10/01/16 at 14:57; Stop 10/02 at 09:56; Status DC Morphine Sulfate 10 mg STK-MED ONCE .ROUTE ; Start 10/01/16 at 15:16; Stop 10/02 at 09:57; Status DC Sodium Chloride (Sodium Chloride) 50 ml STK-MED ONCE IJ ; Start 10/01/16 at 15: 17; Stop 10/02/16 at 09:57; Status DC Famotidine 20 mg 20 mg STK-MED ONCE .ROUTE ; Start 10/01/16 at 16:20; Stop 10/02 at 09:58; Status DC Amino Acids/ Electrolytes (Clinimix E 2.75%-5% Solution) 1,000 ml @ 80 mls/hr [id number] IV Last administered on 10/05/16 05:44; Start 10/02/16 at 14:00 Naloxone HCl 0.4 mg 0.4 mg PRN Q2MIN PRN IV SEE INSTRUCTIONS; Start 10/03/16 at 09:15 Sodium Chloride 1,000 ml @ 25 mls/hr Q24H IV ; Start 10/03/16 at 09:09 Hydromorphone HCl (Dilaudid Standard TEXTURING MACHINE FIXER) 30 ml @ 0 mls/hr CONT PRN PRN IV PROTOCOL Last administered on 10/03/16 10:14; Start 10/03/16 at 09:15 Metoprolol Tartrate (Lopressor) 2.5 mg Q6HRS IVP Last administered on t 12:03; Start 10/03/16 at 12:00 Hydralazine HCl (Apresoline) 10 mg PRN Q4HRS PRN IVP ELEVATED BP, SEE COMMENTS ; Start 10/03/16 at 11:15 Active Scripts Active Reported Potassium Gluconate 99 Mg Tablet 99 Mg PO DAILY Men's Multi-Vitamin (Multivitamin) 1 Each Tablet 1 Each PO DAILY Aspirin 325 Mg Tablet 1 Tab PO DAILY Ranitidine Hcl 300 Mg Tablet 1 Tab PO BID Glipizide 10 Mg Tablet 1 Tab PO BIDWMEALS Zetia (Ezetimibe) 10 Mg Tablet 1 Tab PO DAILY Atorvastatin Calcium 80 Mg Tablet 1 Tab PO HS Metoprolol Tartrate 25 Mg Tablet 12.5 Mg PO HS Vitals/I & O Vital Sign - Last 24 Hours 10/04/16 10/04/16 10/04/16 10/04/16 13:57 16:00 18:03 20:00 Temp 98.7 98.7 Pulse 75 68 72 Resp 20 B/P 139/60 174/82 174/62 Pulse Ox 94 O2 Delivery Nasal Cannula Room Air O2 Flow Rate 2.0 10/04/16 10/04/16 10/04/16 10/05/16 20:00 22:00 22:30 00:16 Temp 99.1 97.5 99.3 99.1 97.5 99.3 Pulse 63 71 66 Resp 20 20 20 B/P 142/60 150/52 143/54 Pulse Ox 95 92 92 O2 Delivery Room Air Room Air Room Air Room Air 10/05/16 10/05/16 10/05/16 10/05/16 00:42 04:00 05:44 07:00 Temp 97.5 98.0 97.5 98.0 Pulse 66 65 65 65 Resp 20 20 B/P 143/54 152/57 152/57 129/58 Pulse Ox 92 92 O2 Delivery Room Air Room Air 10/05/16 10/05/16 11:00 12:03 Temp 98.1 98.1 Pulse 66 66 Resp 20 B/P 137/53 137/53 Pulse Ox 93 O2 Delivery Room Air Intake and Output 10/04/16 10/04/16 10/05/16 15:00 23:00 07:00 Intake Total 30 ml 3761 ml Output Total 1550 ml 500 ml Balance -1520 ml 3261 ml CORI LINDSAY III DO Oct 05, 2016 12:38
[2016-10-05] MEDS: ERTAPENEM 1 GM in IV NORMAL SALINE 50ML 50 ML IV SCH (17:04)
[2016-10-05] MEDS: AA 4.25%/CALCIUM/LYTES/D5W 1,000 ML IV SCH (17:05)
[2016-10-05] MEDS: ATORVASTATIN CALCIUM 40 MG TABLET. PO SCH (21:13)
[2016-10-06] VITALS (7 sets, daily range): BP systolic 127–146; BP diastolic 40–60
[2016-10-06] MEDS: METOPROLOL TARTRATE 5 MG/5 ML VIAL. IVP SCH ×2 (00:06→06:16)
[2016-10-06] MEDS: INSULIN ASPART 300 UNITS/3 ML INSULN.PEN SQ SCH ×4 (00:07→17:18)
[2016-10-06] MEDS: IV RINGERS,LACTATED 1000ML 1,000 ML IV SCH (03:27)
[2016-10-06 03:47] LABS: BASO % 1 % (0-3); EOS % 5 % (0-3); HEMATOCRIT 27.9 % (39.0-53.0); HEMOGLOBIN 9.3 g/dL (13.0-17.5); LYMPH # 1.4 x10^3/uL (1.0-4.8); LYMPH % 16 % (24-48); MEAN CORPUSCULAR HEMOGLOBIN 29 pg (25-35); MEAN CORPUSCULAR HGB CONC 33 g/dL (31-37); MEAN CORPUSCULAR VOLUME 87 fL (79-100); MONO % 13 % (0-9); NEUT % 66 % (31-73); PLATELET COUNT 236 x10^3/uL (140-400); RED BLOOD COUNT 3.23 x10^6/uL (4.30-5.70); RED CELL DISTRIBUTION WIDTH 15.5 % (11.5-14.5); WHITE BLOOD COUNT 8.9 x10^3/uL (4.0-11.0)
[2016-10-06 04:08] LABS: CALCIUM 8.7 mg/dL (8.5-10.1); GFR 73.5; POTASSIUM 4.2 mmol/L (3.5-5.1)
[2016-10-06] MEDS: AA 4.25%/CALCIUM/LYTES/D5W 1,000 ML IV SCH ×3 (05:33→22:20)
[2016-10-06] MEDS: EZETIMIBE 10 MG TABLET PO SCH (08:32)
[2016-10-06] MEDS: MULTIVITAMIN with MINERAL TABLET. PO SCH (08:32)
[2016-10-06] MEDS: FAMOTIDINE 20 MG/2 ML VIAL IVP SCH (08:32)
--- NOTE | 2016-10-06 08:37 | PDOC ---
SURGICAL PROGRESS NOTE Subjective tolerating clears, low appetite--not ready to advance pain managed, hurts with cough no bm yet Vital Signs Vital Signs Date Time Temp Pulse Resp B/P Pulse Ox O2 Delivery O2 Flow Rate FiO2 10/06/16 06:16 60 10/06/16 02:57 98.0 18 145/57 94 Room Air 98.0 I&O Intake and Output 10/06/16 07:00 Intake Total 4832.5 ml Output Total 1860 ml Balance 2972.5 ml Intake Oral 220 ml IV Total 4365.5 ml Tube Feeding 247 ml Gastric Drainage Total 1150 ml Drainage Total 10 ml Other 700 ml # Voids 7 General: Alert, Oriented X3, Cooperative, No acute distress Abdomen: Soft, Other (g tube and j tube in place, ioana scant bilious drainage) Labs Laboratory Tests Test 10/04/16 13:43 10/04/16 18:07 10/05/16 00:33 10/05/16 05:08 Glucose (Fingerstick) 207mg/dL (70-99) 164mg/dL (70-99) 193mg/dL (70-99) 191mg/dL (70-99) Test 10/05/16 11:42 10/05/16 17:05 10/06/16 00:04 10/06/16 03:15 Glucose (Fingerstick) 199mg/dL (70-99) 177mg/dL (70-99) 185mg/dL (70-99) White Blood Count 8.9x10^3/uL (4.0-11.0) Red Blood Count 3.23x10^6/uL (4.30-5.70) Hemoglobin 9.3g/dL (13.0-17.5) Hematocrit 27.9% (39.0-53.0) Mean Corpuscular Volume 87fL (79-100) Mean Corpuscular Hemoglobin 29pg (25-35) Mean Corpuscular Hemoglobin Concent 33g/dL (31-37) Red Cell Distribution Width 15.5% (11.5-14.5) Platelet Count 236x10^3/uL (140-400) Neutrophils (%) (Auto) 66% (31-73) Lymphocytes (%) (Auto) 16% (24-48) Monocytes (%) (Auto) 13% (0-9) Eosinophils (%) (Auto) 5% (0-3) Basophils (%) (Auto) 1% (0-3) Neutrophils # (Auto) 5.9x10^3uL (1.8-7.7) Lymphocytes # (Auto) 1.4x10^3/uL (1.0-4.8) Monocytes # (Auto) 1.1x10^3/uL (0.0-1.1) Eosinophils # (Auto) 0.4x10^3/uL (0.0-0.7) Basophils # (Auto) 0.0x10^3/uL (0.0-0.2) Sodium Level 138mmol/L (136-145) Potassium Level 4.2mmol/L (3.5-5.1) Chloride Level 104mmol/L (98-107) Carbon Dioxide Level 27mmol/L (21-32) Anion Gap 7 (6-14) Blood Urea Nitrogen 19mg/dL (8-26) Creatinine 1.0mg/dL (0.7-1.3) Estimated GFR (Cockcroft-Gault) 73.5 Glucose Level 208mg/dL (70-99) Calcium Level 8.7mg/dL (8.5-10.1) Test 10/06/16 05:49 10/06/16 07:53 Glucose (Fingerstick) 206mg/dL (70-99) 203mg/dL (70-99) Laboratory Tests Test 10/05/16 11:42 10/05/16 17:05 10/06/16 00:04 10/06/16 03:15 Glucose (Fingerstick) 199mg/dL (70-99) 177mg/dL (70-99) 185mg/dL (70-99) White Blood Count 8.9x10^3/uL (4.0-11.0) Red Blood Count 3.23x10^6/uL (4.30-5.70) Hemoglobin 9.3g/dL (13.0-17.5) Hematocrit 27.9% (39.0-53.0) Mean Corpuscular Volume 87fL (79-100) Mean Corpuscular Hemoglobin 29pg (25-35) Mean Corpuscular Hemoglobin Concent 33g/dL (31-37) Red Cell Distribution Width 15.5% (11.5-14.5) Platelet Count 236x10^3/uL (140-400) Neutrophils (%) (Auto) 66% (31-73) Lymphocytes (%) (Auto) 16% (24-48) Monocytes (%) (Auto) 13% (0-9) Eosinophils (%) (Auto) 5% (0-3) Basophils (%) (Auto) 1% (0-3) Neutrophils # (Auto) 5.9x10^3uL (1.8-7.7) Lymphocytes # (Auto) 1.4x10^3/uL (1.0-4.8) Monocytes # (Auto) 1.1x10^3/uL (0.0-1.1) Eosinophils # (Auto) 0.4x10^3/uL (0.0-0.7) Basophils # (Auto) 0.0x10^3/uL (0.0-0.2) Sodium Level 138mmol/L (136-145) Potassium Level 4.2mmol/L (3.5-5.1) Chloride Level 104mmol/L (98-107) Carbon Dioxide Level 27mmol/L (21-32) Anion Gap 7 (6-14) Blood Urea Nitrogen 19mg/dL (8-26) Creatinine 1.0mg/dL (0.7-1.3) Estimated GFR (Cockcroft-Gault) 73.5 Glucose Level 208mg/dL (70-99) Calcium Level 8.7mg/dL (8.5-10.1) Test 10/06/16 05:49 10/06/16 07:53 Glucose (Fingerstick) 206mg/dL (70-99) 203mg/dL (70-99) Problem List Problems Medical Problems: (1) Cholecystoduodenal fistula Status: Acute (2) Cholelithiasis Status: Acute Assessment/Plan clears today, possible advance in AM dc photo cartographer Problems: LESLIE LOUISE APRN Oct 06, 2016 08:37
[2016-10-06] MEDS: IV NORMAL SALINE 1000ML BAG 1,000 ML IV SCH (08:38)
[2016-10-06] MEDS: ENOXAPARIN 40 MG/0.4 ML DISP.SYRIN. SQ SCH (08:38)
[2016-10-06] MEDS ORDERED: HYDROMORPHONE 2 MG/ML VIAL. IVP PRN (08:45)
--- NOTE | 2016-10-06 10:02 | PDOC ---
PROGRESS NOTES Chief Complaint Chief Complaint Cholelithiasis ASSESSMENT AND PLAN: 1. Cholelithiasis: s/p ERCP w/sphincterotomy in outside facility. s/p lap. - > open CCY w/ repair of cholecystoduodenostomy fistula, liver biopsy, G-tube and J tube placement 2. Complicated Cholecystitis/ w peritonitis: on ertapenem 3. HTN: fair control on Zetia, low dose IV metoprolol. switch to PO BB 4. DM2: poor control in only ISS. home oral meds on hold. start low dose levemir 5. HLD: statin 6. CAD: hx CABG, no acute issues 7. Prophylaxis: lovenox Dispo: LTAC when bed available History of Present Illness History of Present Illness Vitals Vitals Vital Signs Date Time Temp Pulse Resp B/P Pulse Ox O2 Delivery O2 Flow Rate FiO2 10/06/16 07:00 99.5 68 20 143/59 93 Room Air 99.5 Physical Exam General: Alert, Oriented X3, Cooperative, No acute distress Heart: Regular rate, Normal S1, Normal S2, No murmurs Lungs: Clear, Other (no wheezes or crackles) Abdomen: Soft, Other (g tube and j tube in place, ioana scant bilious drainage) Extremities: No clubbing, No cyanosis, No edema Skin: No rashes, No breakdown Labs LABS Laboratory Tests Test 10/05/16 11:42 10/05/16 17:05 10/06/16 00:04 10/06/16 03:15 Glucose (Fingerstick) 199mg/dL (70-99) 177mg/dL (70-99) 185mg/dL (70-99) White Blood Count 8.9x10^3/uL (4.0-11.0) Red Blood Count 3.23x10^6/uL (4.30-5.70) Hemoglobin 9.3g/dL (13.0-17.5) Hematocrit 27.9% (39.0-53.0) Mean Corpuscular Volume 87fL (79-100) Mean Corpuscular Hemoglobin 29pg (25-35) Mean Corpuscular Hemoglobin Concent 33g/dL (31-37) Red Cell Distribution Width 15.5% (11.5-14.5) Platelet Count 236x10^3/uL (140-400) Neutrophils (%) (Auto) 66% (31-73) Lymphocytes (%) (Auto) 16% (24-48) Monocytes (%) (Auto) 13% (0-9) Eosinophils (%) (Auto) 5% (0-3) Basophils (%) (Auto) 1% (0-3) Neutrophils # (Auto) 5.9x10^3uL (1.8-7.7) Lymphocytes # (Auto) 1.4x10^3/uL (1.0-4.8) Monocytes # (Auto) 1.1x10^3/uL (0.0-1.1) Eosinophils # (Auto) 0.4x10^3/uL (0.0-0.7) Basophils # (Auto) 0.0x10^3/uL (0.0-0.2) Sodium Level 138mmol/L (136-145) Potassium Level 4.2mmol/L (3.5-5.1) Chloride Level 104mmol/L (98-107) Carbon Dioxide Level 27mmol/L (21-32) Anion Gap 7 (6-14) Blood Urea Nitrogen 19mg/dL (8-26) Creatinine 1.0mg/dL (0.7-1.3) Estimated GFR (Cockcroft-Gault) 73.5 Glucose Level 208mg/dL (70-99) Calcium Level 8.7mg/dL (8.5-10.1) Test 10/06/16 05:49 10/06/16 07:53 Glucose (Fingerstick) 206mg/dL (70-99) 203mg/dL (70-99) Review of Systems Review of Systems comfortable. min abd pain. tolerating clears Comment Review of Relevant KATIE DE LA CRUZ MD Oct 06, 2016 10:01
--- NOTE | 2016-10-06 12:00 | PDOC ---
PROGRESS NOTES Chief Complaint Chief Complaint 1. Cholelithiasis s/p open Cholecystectomy w/ liver biopsy, repair of duodenotomy, pyloric exclusion, gastrojejunostomy, G-tube placement, J-tube placement 2. Cholcystoduodenostomy fistula 3. HTN 4. Type 2 DM 5. Hyperlipidemia 6. Hx of CABG 7. Obese History of Present Illness History of Present Illness Pt doing well today upon arrival to his room. Pt at bedside talking with pt. Today he states he still has some pain at his surgical site but he is feeling better than on admission. He and stated that he is drinking/ eating clears and tolerating well but he is somewhat hesitant to eat or drink still. DW Family at bedside- plan is to continue to watch here until subspecialists agree pt is stable for discharge to LTAC. Vitals Vitals Vital Signs Date Time Temp Pulse Resp B/P Pulse Ox O2 Delivery O2 Flow Rate FiO2 10/06/16 11:43 98.8 75 16 137/56 93 Room Air 98.8 Physical Exam General: Alert, Oriented X3, Cooperative, No acute distress Heart: Regular rate, Normal S1, Normal S2, No murmurs Lungs: Clear, Other (no wheezes or crackles) Abdomen: Soft, Other (g tube and j tube in place, ioana scant bilious drainage) Extremities: No clubbing, No cyanosis, No edema Skin: No rashes, No breakdown Labs LABS Laboratory Tests Test 10/05/16 17:05 10/06/16 00:04 10/06/16 03:15 10/06/16 05:49 Glucose (Fingerstick) 177mg/dL (70-99) 185mg/dL (70-99) 206mg/dL (70-99) White Blood Count 8.9x10^3/uL (4.0-11.0) Red Blood Count 3.23x10^6/uL (4.30-5.70) Hemoglobin 9.3g/dL (13.0-17.5) Hematocrit 27.9% (39.0-53.0) Mean Corpuscular Volume 87fL (79-100) Mean Corpuscular Hemoglobin 29pg (25-35) Mean Corpuscular Hemoglobin Concent 33g/dL (31-37) Red Cell Distribution Width 15.5% (11.5-14.5) Platelet Count 236x10^3/uL (140-400) Neutrophils (%) (Auto) 66% (31-73) Lymphocytes (%) (Auto) 16% (24-48) Monocytes (%) (Auto) 13% (0-9) Eosinophils (%) (Auto) 5% (0-3) Basophils (%) (Auto) 1% (0-3) Neutrophils # (Auto) 5.9x10^3uL (1.8-7.7) Lymphocytes # (Auto) 1.4x10^3/uL (1.0-4.8) Monocytes # (Auto) 1.1x10^3/uL (0.0-1.1) Eosinophils # (Auto) 0.4x10^3/uL (0.0-0.7) Basophils # (Auto) 0.0x10^3/uL (0.0-0.2) Sodium Level 138mmol/L (136-145) Potassium Level 4.2mmol/L (3.5-5.1) Chloride Level 104mmol/L (98-107) Carbon Dioxide Level 27mmol/L (21-32) Anion Gap 7 (6-14) Blood Urea Nitrogen 19mg/dL (8-26) Creatinine 1.0mg/dL (0.7-1.3) Estimated GFR (Cockcroft-Gault) 73.5 Glucose Level 208mg/dL (70-99) Calcium Level 8.7mg/dL (8.5-10.1) Test 10/06/16 07:53 Glucose (Fingerstick) 203mg/dL (70-99) Review of Systems Review of Systems Complaining of some epigastric pain- improving Complaining of fatigue All other ROS negative Assessment and Plan Assessmemt and Plan Problems Medical Problems: (1) Cholecystoduodenal fistula Status: Acute (2) Cholelithiasis Status: Acute 1. Cholelithiasis s/p open Cholecystectomy w/ liver biopsy, repair of duodenotomy, pyloric exclusion, gastrojejunostomy, G-tube placement, J-tube placement 2. Cholcystoduodenostomy fistula 3. HTN 4. Type 2 DM 5. Hyperlipidemia 6. Hx of CABG 7. Obese Plan: - POD # 5 - Continue care per floor protocol - General Surgery on case- Appreciate Recommendations and help on case - s/p open Cholecystectomy w/ liver biopsy, repair of duodenotomy, pyloric exclusion, gastrojejunostomy, G-tube placement, J-tube placement - Continue Care per General Surgery Recommendations - Continue to monitor IOANA Drain for output - J Tube still in place for Tube feedings - Continue feedings and procalamine via tube - G Tube in place for gastric suctioning: will continue to monitor - Continue regular Wound Care - Dilaudid TRADE SHOW SPECIALIST in place for pain control - Continue to monitor I&Os of all drains - Continue Regular Home Medications - IV Hydralazine and Metoprolol in place for BP Control - Tolerating Clears at this time - will continue clears as recommended by general surgery - pt hesistant to eat or drink even clears - Regular Labs in AM - PT/OT to evaluate and treat - Dispo: Discharge to LTAC when subspecialists feel pt is stable for d/c Problems: Comment Review of Relevant I have reviewed the following items jose (where applicable) has been applied. Labs Laboratory Tests Test 10/04/16 13:43 10/04/16 18:07 10/05/16 00:33 10/05/16 05:08 Glucose (Fingerstick) 207mg/dL (70-99) 164mg/dL (70-99) 193mg/dL (70-99) 191mg/dL (70-99) Test 10/05/16 11:42 10/05/16 17:05 10/06/16 00:04 10/06/16 03:15 Glucose (Fingerstick) 199mg/dL (70-99) 177mg/dL (70-99) 185mg/dL (70-99) White Blood Count 8.9x10^3/uL (4.0-11.0) Red Blood Count 3.23x10^6/uL (4.30-5.70) Hemoglobin 9.3g/dL (13.0-17.5) Hematocrit 27.9% (39.0-53.0) Mean Corpuscular Volume 87fL (79-100) Mean Corpuscular Hemoglobin 29pg (25-35) Mean Corpuscular Hemoglobin Concent 33g/dL (31-37) Red Cell Distribution Width 15.5% (11.5-14.5) Platelet Count 236x10^3/uL (140-400) Neutrophils (%) (Auto) 66% (31-73) Lymphocytes (%) (Auto) 16% (24-48) Monocytes (%) (Auto) 13% (0-9) Eosinophils (%) (Auto) 5% (0-3) Basophils (%) (Auto) 1% (0-3) Neutrophils # (Auto) 5.9x10^3uL (1.8-7.7) Lymphocytes # (Auto) 1.4x10^3/uL (1.0-4.8) Monocytes # (Auto) 1.1x10^3/uL (0.0-1.1) Eosinophils # (Auto) 0.4x10^3/uL (0.0-0.7) Basophils # (Auto) 0.0x10^3/uL (0.0-0.2) Sodium Level 138mmol/L (136-145) Potassium Level 4.2mmol/L (3.5-5.1) Chloride Level 104mmol/L (98-107) Carbon Dioxide Level 27mmol/L (21-32) Anion Gap 7 (6-14) Blood Urea Nitrogen 19mg/dL (8-26) Creatinine 1.0mg/dL (0.7-1.3) Estimated GFR (Cockcroft-Gault) 73.5 Glucose Level 208mg/dL (70-99) Calcium Level 8.7mg/dL (8.5-10.1) Test 10/06/16 05:49 10/06/16 07:53 Glucose (Fingerstick) 206mg/dL (70-99) 203mg/dL (70-99) Laboratory Tests Test 10/05/16 17:05 10/06/16 00:04 10/06/16 03:15 10/06/16 05:49 Glucose (Fingerstick) 177mg/dL (70-99) 185mg/dL (70-99) 206mg/dL (70-99) White Blood Count 8.9x10^3/uL (4.0-11.0) Red Blood Count 3.23x10^6/uL (4.30-5.70) Hemoglobin 9.3g/dL (13.0-17.5) Hematocrit 27.9% (39.0-53.0) Mean Corpuscular Volume 87fL (79-100) Mean Corpuscular Hemoglobin 29pg (25-35) Mean Corpuscular Hemoglobin Concent 33g/dL (31-37) Red Cell Distribution Width 15.5% (11.5-14.5) Platelet Count 236x10^3/uL (140-400) Neutrophils (%) (Auto) 66% (31-73) Lymphocytes (%) (Auto) 16% (24-48) Monocytes (%) (Auto) 13% (0-9) Eosinophils (%) (Auto) 5% (0-3) Basophils (%) (Auto) 1% (0-3) Neutrophils # (Auto) 5.9x10^3uL (1.8-7.7) Lymphocytes # (Auto) 1.4x10^3/uL (1.0-4.8) Monocytes # (Auto) 1.1x10^3/uL (0.0-1.1) Eosinophils # (Auto) 0.4x10^3/uL (0.0-0.7) Basophils # (Auto) 0.0x10^3/uL (0.0-0.2) Sodium Level 138mmol/L (136-145) Potassium Level 4.2mmol/L (3.5-5.1) Chloride Level 104mmol/L (98-107) Carbon Dioxide Level 27mmol/L (21-32) Anion Gap 7 (6-14) Blood Urea Nitrogen 19mg/dL (8-26) Creatinine 1.0mg/dL (0.7-1.3) Estimated GFR (Cockcroft-Gault) 73.5 Glucose Level 208mg/dL (70-99) Calcium Level 8.7mg/dL (8.5-10.1) Test 10/06/16 07:53 Glucose (Fingerstick) 203mg/dL (70-99) Medications Current Medications Sodium Chloride (Iv Sodium Chloride 0.45%) 1,000 ml @ 100 mls/hr Q10H IV Last administered on 09/29/16t 08:18; Start 09/27/16 at 16:50; Stop 09/29/16 at 14:58 ; Status DC Ondansetron HCl (Zofran) 4 mg PRN Q6HRS PRN IV NAUSEA/VOMITING 1ST CHOICE; Start 09/27/16 at 17:00; Stop 10/03/16 at 11:06; Status DC Prochlorperazine Edisylate (Compazine) 10 mg PRN Q6HRS PRN IV NAUSEA/VOMITING 2ND CHOICE; Start 09/27/16 at 17:00 Prochlorperazine (Compazine) 25 mg PRN Q12HR PRN MD NAUSEA/VOMITING; Start at 17:00 Al Hydrox/Mg Hydrox/Simethicone (Mylanta Plus Xs) 30 ml PRN Q3HRS PRN PO HEARTBURN / GAS; Start 09/27/16 at 17:00 Calcium Carbonate/ Glycine (Tums) 500 mg PRN Q3HRS PRN PO UPSET STOMACH; Start 09/27/16 at 17:00 Oxycodone HCl (Roxicodone) 5 mg PRN Q3HRS PRN PO BREAKTHROUGH PAIN; Start 09/27 at 17:00 Morphine Sulfate 2 mg PRN Q2HR PRN IV MILD-MOD PAIN Last administered on 01:29; Start 09/27/16 at 17:00 Magnesium Hydroxide (Milk Of Magnesia) 2,400 mg PRN Q12HR PRN PO CONSTIPATION; Start 09/27/16 at 17:00; Stop 09/27/16 at 17:15; Status DC Lactulose 20 gm PRN Q12HR PRN PO CONSTIPATION; Start 09/27/16 at 17:00; Stop at 17:15; Status DC Bisacodyl (Dulcolax Supp) 10 mg PRN DAILY PRN MD CONSTIPATION; Start 09/27/16 at 17:00; Stop 09/27/16 at 17:15; Status DC EZETIMIBE (Zetia) 10 mg DAILY PO Last administered on 10/06/16 08:32; Start at 09:00 Metoprolol Tartrate (Lopressor) 12.5 mg HS PO Last administered on 09/30/16 21 :28; Start 09/27/16 at 21:00; Stop 10/03/16 at 11:08; Status DC Atorvastatin Calcium (Lipitor) 80 mg QHS PO Last administered on 10/05/16 21: 13; Start 09/27/16 at 21:00 Glipizide (Glucotrol) 10 mg BIDBFRMEAL PO ; Start 09/27/16 at 17:00; Stop at 17:15; Status DC Multivitamins/ Calcium (Thera M Plus) 1 tab DAILY PO Last administered on 08:32; Start 09/28/16 at 09:00 Non-Formulary Medication 99 mg DAILY PO ; Start 09/28/16 at 09:00; Status UNV Famotidine (Pepcid) 20 mg BID PO Last administered on 09/30/16 21:28; Start at 21:00; Stop 10/03/16 at 11:05; Status DC Insulin Aspart (Novolog) 0-5 UNITS TIDWMEALS SQ Last administered on 09/30/16 12:04; Start 09/28/16 at 12:00; Stop 10/02/16 at 08:45; Status DC Dextrose 12.5 gm PRN Q15MIN PRN IV SEE COMMENTS; Start 09/28/16 at 09:45 Acetaminophen 650 mg 650 mg PRN Q6HRS PRN PO MILD PAIN / TEMP; Start 09/29/16 at 15:00 Levofloxacin/ Dextrose (LEVAQUIN 750mg PREMIX) 150 ml @ 100 mls/hr 1X PREOP PRN IV central sterilization technician to OR Last administered on 10/01/16 13:12; Start 10/01/16 at 09: 15; Stop 10/02/16 at 18:00; Status DC Ondansetron HCl (Zofran) 4 mg PRN Q6HRS PRN IV Nausea; Start 10/01/16 at 12:15 ; Stop 10/02/16 at 12:14; Status DC Fentanyl Citrate (Fentanyl 2ml Vial) 25 mcg PRN Q5MIN PRN IV MILD PAIN; Start 10/01/16 at 12:15; Stop 10/02/16 at 12:14; Status DC Fentanyl Citrate (Fentanyl 2ml Vial) 50 mcg PRN Q5MIN PRN IV MODERATE PAIN Last administered on 10/01/16 18:00; Start 10/01/16 at 12:15; Stop 10/02/16 at 12:14; Status DC Morphine Sulfate 1 mg 1 mg PRN Q10MIN PRN IV SEVERE PAIN; Start 10/01/16 at 12: 15; Stop 10/02/16 at 12:14; Status DC Lactated Ringer's (Iv Lactated Ringers) 1,000 ml @ 0 mls/hr Q0M IV Last administered on 10/01/16 12:18; Start 10/01/16 at 12:09; Stop 10/02/16 at 00:08 ; Status DC Lidocaine HCl 2 ml 1X PRN PRN ID IV START; Start 10/01/16 at 12:15; Stop at 12:14; Status DC Hydromorphone HCl (Dilaudid) 0.5 mg PRN Q10MIN PRN IV SEV PAIN,Second choice; Start 10/01/16 at 12:15; Stop 10/02/16 at 12:14; Status DC Prochlorperazine Edisylate 5 mg 5 mg PACU PRN PRN IV NAUSEA Last administered on 10/01/16 17:23; Start 10/01/16 at 12:15; Stop 10/02/16 at 12:14; Status DC Heparin Sodium (Porcine)/Sodium Chloride (Iv Sodium Chloride 0.9% 1000ml Bag) 1, 001 ml @ 1,001 mls/hr 1X PERIOP ONCE IRR ; Start 10/01/16 at 13:00; Stop 10/01 at 14:04; Status DC Bupivacaine HCl/ Epinephrine Bitart 30 ml 30 ml STK-MED ONCE IJ Last administered on 10/01/16 13:29; Start 10/01/16 at 13:29; Stop 10/01/16 at 14:04 ; Status DC Ertapenem/Sodium Chloride (Invanz/Iv Sodium Chloride 0.9% 50ml) 50 ml @ 100 mls /hr Q24H IV Last administered on 10/05/16 17:04; Start 10/01/16 at 17:00 Famotidine (Pepcid) 20 mg BID IVP Last administered on 10/06/16 08:32; Start 10/01/16 at 21:00 Enoxaparin Sodium (Lovenox 40mg Syringe) 40 mg Q24H SQ ; Start 10/01/16 at 17:00 ; Stop 10/02/16 at 01:44; Status DC Sodium Chloride 3 ml 3 ml QSHIFT PRN IV AFTER MEDS AND BLOOD DRAWS; Start 10/01 at 16:45 Lactated Ringer's (Iv Lactated Ringers) 1,000 ml @ 100 mls/hr Q10H IV Last administered on 10/06/16 03:27; Start 10/01/16 at 16:39; Stop 10/06/16 at 09:56 ; Status DC Naloxone HCl 0.4 mg 0.4 mg PRN Q2MIN PRN IV SEE INSTRUCTIONS; Start 10/01/16 at 16:45; Stop 10/03/16 at 11:06; Status DC Sodium Chloride 1,000 ml @ 25 mls/hr Q24H IV ; Start 10/01/16 at 16:39; Stop at 11:05; Status DC Morphine Sulfate (Morphine 30 Mg/ 30 ml TRADE SHOW SPECIALIST) 30 ml @ 0 mls/hr CONT PRN PRN IV PROTOCOL Last administered on 10/01/16 17:34; Start 10/01/16 at 16:45; Stop at 09:09; Status DC Ondansetron HCl (Zofran) 4 mg PRN Q6HRS PRN IV NAUESA, 1ST CHOICE; Start at 16:45 Enoxaparin Sodium (Lovenox 40mg Syringe) 40 mg Q24H SQ Last administered on 08:38; Start 10/02/16 at 09:00 Insulin Aspart (Novolog) 0-5 UNITS Q6HRS SQ Last administered on 10/05/16 17: 09; Start 10/02/16 at 09:00 Lidocaine HCl 5 ml 5 ml STK-MED ONCE .ROUTE ; Start 10/01/16 at 10:50; Stop at 09:51; Status DC Propofol (Diprivan) 100 ml @ As Directed STK-MED ONCE IV ; Start 10/01/16 at 10 :50; Stop 10/02/16 at 09:51; Status DC Rocuronium [place] (Zemuron) 50 mg STK-MED ONCE .ROUTE ; Start 10/01/16 at 10:50 ; Stop 10/02/16 at 09:51; Status DC Fentanyl Citrate (Fentanyl 2ml Vial) 100 mcg STK-MED ONCE .ROUTE ; Start at 11:45; Stop 10/02/16 at 09:52; Status DC Dexamethasone Sodium Phosphate (Decadron) 20 mg STK-MED ONCE .ROUTE ; Start at 11:45; Stop 10/02/16 at 09:52; Status DC Ondansetron HCl (Zofran) 4 mg STK-MED ONCE .ROUTE ; Start 10/01/16 at 11:45; Stop 10/02/16 at 09:52; Status DC Ketorolac Tromethamine (Toradol For Or Only) 30 mg STK-MED ONCE INJ ; Start at 11:45; Stop 10/02/16 at 09:52; Status DC Glycopyrrolate (Robinul) 1 mg STK-MED ONCE .ROUTE ; Start 10/01/16 at 11:46; Stop 10/02/16 at 09:52; Status DC Neostigmine Methylsulfate 5 mg STK-MED ONCE .ROUTE ; Start 10/01/16 at 11:46; Stop 10/02/16 at 09:52; Status DC Bupivacaine HCl/ Epinephrine Bitart (Sensorcain-Mpf Epi 0.5%-1:[id number]) 30 ml STK -MED ONCE .ROUTE ; Start 10/01/16 at 12:57; Stop 10/02/16 at 09:54; Status DC Iohexol (Omnipaque 300 Mg/ml) 50 ml STK-MED ONCE .ROUTE ; Start 10/01/16 at 12: 58; Stop 10/02/16 at 09:54; Status DC Cellulose 1 each STK-MED ONCE .ROUTE ; Start 10/01/16 at 12:58; Stop 10/02/16 at 09:54; Status DC Bisacodyl (Dulcolax Supp) 10 mg STK-MED ONCE .ROUTE ; Start 10/01/16 at 12:58; Stop 10/02/16 at 09:54; Status DC Desflurane (Suprane) 60 ml STK-MED ONCE IH ; Start 10/01/16 at 13:18; Stop 10/02 at 09:54; Status DC Fentanyl Citrate (Fentanyl 2ml Vial) 100 mcg STK-MED ONCE .ROUTE ; Start at 13:21; Stop 10/02/16 at 09:54; Status DC Ephedrine Sulfate 50 mg STK-MED ONCE IV ; Start 10/01/16 at 13:23; Stop at 09:55; Status DC Esmolol HCl (Brevibloc) 100 mg STK-MED ONCE IV ; Start 10/01/16 at 13:49; Stop 10/02/16 at 09:55; Status DC Rocuronium [place] (Zemuron) 50 mg STK-MED ONCE .ROUTE ; Start 10/01/16 at 13:50 ; Stop 10/02/16 at 09:55; Status DC Fentanyl Citrate (Fentanyl 2ml Vial) 100 mcg STK-MED ONCE .ROUTE ; Start at 14:13; Stop 10/02/16 at 09:56; Status DC Desflurane (Suprane) 90 ml STK-MED ONCE IH ; Start 10/01/16 at 14:57; Stop 10/02 at 09:56; Status DC Morphine Sulfate 10 mg STK-MED ONCE .ROUTE ; Start 10/01/16 at 15:16; Stop 10/02 at 09:57; Status DC Sodium Chloride (Sodium Chloride) 50 ml STK-MED ONCE IJ ; Start 10/01/16 at 15: 17; Stop 10/02/16 at 09:57; Status DC Famotidine 20 mg 20 mg STK-MED ONCE .ROUTE ; Start 10/01/16 at 16:20; Stop 10/02 at 09:58; Status DC Amino Acids/ Electrolytes (Clinimix E 2.75%-5% Solution) 1,000 ml @ 80 mls/hr [id number] IV Last administered on 10/05/16t 05:44; Start 10/02/16 at 14:00; Stop 10/05/16 at 15:42; Status DC Naloxone HCl 0.4 mg 0.4 mg PRN Q2MIN PRN IV SEE INSTRUCTIONS; Start 10/03/16 at 09:15 Sodium Chloride 1,000 ml @ 25 mls/hr Q24H IV ; Start 10/03/16 at 09:09; Stop at 09:56; Status DC Hydromorphone HCl (Dilaudid Standard TRADE SHOW SPECIALIST) 30 ml @ 0 mls/hr CONT PRN PRN IV PROTOCOL Last administered on 10/03/16t 10:14; Start 10/03/16 at 09:15; Stop at 08:36; Status DC Metoprolol Tartrate (Lopressor) 2.5 mg Q6HRS IVP Last administered on 00:06; Start 10/03/16 at 12:00; Stop 10/06/16 at 09:56; Status DC Hydralazine HCl 10 mg 10 mg PRN Q4HRS PRN IVP ELEVATED BP, SEE COMMENTS; Start 10/03/16 at 11:15 Amino Acids/ Electrolytes/ Dextrose (Clinimix E 4.25%-5% Solution) 1,000 ml @ 80 mls/hr [id number] IV Last administered on 10/06/16 08:31; Start 10/05/16 at 15 :42 Oxycodone/ Acetaminophen (Percocet 5/325) 1 tab PRN Q4HRS PRN PO PAIN; Start at 08:45 Hydromorphone HCl (Dilaudid) 0.4 mg PRN Q4HRS PRN IVP PAIN; Start 10/06/16 at 08:45 Oxycodone/ Acetaminophen (Percocet 5/325) 2 tab PRN Q4HRS PRN PO PAIN; Start at 08:45 Metoprolol Tartrate (Lopressor) 25 mg BID PO ; Start 10/06/16 at 10:00 Insulin Detemir (Levemir) 10 units QHS SQ ; Start 10/06/16 at 21:00 Active Scripts Active Reported Potassium Gluconate 99 Mg Tablet 99 Mg PO DAILY Men's Multi-Vitamin (Multivitamin) 1 Each Tablet 1 Each PO DAILY Aspirin 325 Mg Tablet 1 Tab PO DAILY Ranitidine Hcl 300 Mg Tablet 1 Tab PO BID Glipizide 10 Mg Tablet 1 Tab PO BIDWMEALS Zetia (Ezetimibe) 10 Mg Tablet 1 Tab PO DAILY Atorvastatin Calcium 80 Mg Tablet 1 Tab PO HS Metoprolol Tartrate 25 Mg Tablet 12.5 Mg PO HS Vitals/I & O Vital Sign - Last 24 Hours 10/05/16 10/05/16 10/05/16 10/05/16 12:03 15:00 17:12 19:15 Temp 98.1 98.1 98.1 98.1 Pulse 66 60 60 67 Resp 20 20 B/P 137/53 129/53 129/53 143/56 Pulse Ox 95 93 O2 Delivery Room Air Room Air 10/05/16 10/05/16 10/06/16 10/06/16 19:55 23:11 00:06 00:08 Temp 97.8 97.8 Pulse 72 66 66 Resp 18 B/P 131/58 146/60 146/60 Pulse Ox 93 O2 Delivery Room Air Room Air 10/06/16 10/06/16 10/06/16 10/06/16 02:57 06:16 07:00 11:43 Temp 98.0 99.5 98.8 98.0 99.5 98.8 Pulse 68 60 68 75 Resp 18 20 16 B/P 145/57 143/59 137/56 Pulse Ox 94 93 93 O2 Delivery Room Air Room Air Room Air Intake and Output 10/05/16 10/05/16 10/06/16 15:00 23:00 07:00 Intake Total 120 ml 4712.5 ml Output Total 1150 ml 710 ml Balance -1030 ml 4002.5 ml CORI LINDSAY III DO Oct 06, 2016 12:00
[2016-10-06] MEDS: OXYCODONE/APAP 5/325 TABLET. PO PRN (12:14)
[2016-10-06] MEDS: METOPROLOL TART IMMED RELEASE 25 MG TABLET PO SCH ×2 (12:14→21:43)
[2016-10-06] MEDS ORDERED: AMOXICILLIN/K CLAV 875/125MG TABLET. PO SCH (14:00)
[2016-10-06] MEDS: METRONIDAZOLE 500 MG TABLET. PO SCH ×2 (17:15→21:43)
[2016-10-06] MEDS: ATORVASTATIN CALCIUM 40 MG TABLET. PO SCH (21:42)
[2016-10-06] MEDS: FAMOTIDINE 20 MG TABLET. PO SCH (21:43)
[2016-10-06] MEDS: INSULIN DETEMIR 300 UNITS/3 ML INSULN.PEN. SQ SCH (21:58)
[2016-10-07] MEDS: OXYCODONE/APAP 5/325 TABLET. PO PRN ×3 (02:37→21:29)
[2016-10-07 03:00] VITALS: BP 135/52
[2016-10-07] MEDS: METRONIDAZOLE 500 MG TABLET. PO SCH ×3 (05:58→21:28)
[2016-10-07] MEDS: INSULIN ASPART 300 UNITS/3 ML INSULN.PEN SQ SCH ×5 (06:00→21:00)
[2016-10-07 07:00] VITALS: BP 122/54
[2016-10-07 08:08] LABS: BASO # 0.1 x10^3/uL (0.0-0.2); BASO % 1 % (0-3); EOS % 4 % (0-3); HEMATOCRIT 26.6 % (39.0-53.0); HEMOGLOBIN 8.9 g/dL (13.0-17.5); LYMPH # 1.4 x10^3/uL (1.0-4.8); LYMPH % 16 % (24-48); MEAN CORPUSCULAR HEMOGLOBIN 29 pg (25-35); MEAN CORPUSCULAR HGB CONC 34 g/dL (31-37); MEAN CORPUSCULAR VOLUME 87 fL (79-100); MONO % 12 % (0-9); NEUT % 68 % (31-73); PLATELET COUNT 264 x10^3/uL (140-400); RED BLOOD COUNT 3.06 x10^6/uL (4.30-5.70); RED CELL DISTRIBUTION WIDTH 15.5 % (11.5-14.5); WHITE BLOOD COUNT 8.8 x10^3/uL (4.0-11.0)
[2016-10-07 08:23] LABS: CALCIUM 8.5 mg/dL (8.5-10.1); GFR 73.5; POTASSIUM 4.5 mmol/L (3.5-5.1)
--- NOTE | 2016-10-07 08:46 | PDOC ---
SURGICAL PROGRESS NOTE Subjective tolerating clears pain managed + flatus, no stool Vital Signs Vital Signs Date Time Temp Pulse Resp B/P Pulse Ox O2 Delivery O2 Flow Rate FiO2 10/07/16 03:00 98.7 56 18 135/52 93 Room Air 98.7 I&O Intake and Output 10/07/16 07:00 Intake Total 775 ml Output Total 1200 ml Balance -425 ml Intake Oral 775 ml Output Urine Total 500 ml Gastric Drainage Total 700 ml # Voids 2 General: Alert, Oriented X3, Cooperative, No acute distress Abdomen: Soft, Other (ioana scant drainage, j and g tube in place) Labs Laboratory Tests Test 10/05/16 11:42 10/05/16 17:05 10/06/16 00:04 10/06/16 03:15 Glucose (Fingerstick) 199mg/dL (70-99) 177mg/dL (70-99) 185mg/dL (70-99) White Blood Count 8.9x10^3/uL (4.0-11.0) Red Blood Count 3.23x10^6/uL (4.30-5.70) Hemoglobin 9.3g/dL (13.0-17.5) Hematocrit 27.9% (39.0-53.0) Mean Corpuscular Volume 87fL (79-100) Mean Corpuscular Hemoglobin 29pg (25-35) Mean Corpuscular Hemoglobin Concent 33g/dL (31-37) Red Cell Distribution Width 15.5% (11.5-14.5) Platelet Count 236x10^3/uL (140-400) Neutrophils (%) (Auto) 66% (31-73) Lymphocytes (%) (Auto) 16% (24-48) Monocytes (%) (Auto) 13% (0-9) Eosinophils (%) (Auto) 5% (0-3) Basophils (%) (Auto) 1% (0-3) Neutrophils # (Auto) 5.9x10^3uL (1.8-7.7) Lymphocytes # (Auto) 1.4x10^3/uL (1.0-4.8) Monocytes # (Auto) 1.1x10^3/uL (0.0-1.1) Eosinophils # (Auto) 0.4x10^3/uL (0.0-0.7) Basophils # (Auto) 0.0x10^3/uL (0.0-0.2) Sodium Level 138mmol/L (136-145) Potassium Level 4.2mmol/L (3.5-5.1) Chloride Level 104mmol/L (98-107) Carbon Dioxide Level 27mmol/L (21-32) Anion Gap 7 (6-14) Blood Urea Nitrogen 19mg/dL (8-26) Creatinine 1.0mg/dL (0.7-1.3) Estimated GFR (Cockcroft-Gault) 73.5 Glucose Level 208mg/dL (70-99) Calcium Level 8.7mg/dL (8.5-10.1) Test 10/06/16 05:49 10/06/16 07:53 10/06/16 11:45 10/06/16 16:28 Glucose (Fingerstick) 206mg/dL (70-99) 203mg/dL (70-99) 203mg/dL (70-99) 177mg/dL (70-99) Test 10/06/16 20:32 10/07/16 04:06 10/07/16 05:57 10/07/16 07:32 Glucose (Fingerstick) 166mg/dL (70-99) 223mg/dL (70-99) Sodium Level 136mmol/L (136-145) Potassium Level 4.5mmol/L (3.5-5.1) Chloride Level 104mmol/L (98-107) Carbon Dioxide Level 26mmol/L (21-32) Anion Gap 6 (6-14) Blood Urea Nitrogen 21mg/dL (8-26) Creatinine 1.0mg/dL (0.7-1.3) Estimated GFR (Cockcroft-Gault) 73.5 Glucose Level 206mg/dL (70-99) Calcium Level 8.5mg/dL (8.5-10.1) White Blood Count 8.8x10^3/uL (4.0-11.0) Red Blood Count 3.06x10^6/uL (4.30-5.70) Hemoglobin 8.9g/dL (13.0-17.5) Hematocrit 26.6% (39.0-53.0) Mean Corpuscular Volume 87fL (79-100) Mean Corpuscular Hemoglobin 29pg (25-35) Mean Corpuscular Hemoglobin Concent 34g/dL (31-37) Red Cell Distribution Width 15.5% (11.5-14.5) Platelet Count 264x10^3/uL (140-400) Neutrophils (%) (Auto) 68% (31-73) Lymphocytes (%) (Auto) 16% (24-48) Monocytes (%) (Auto) 12% (0-9) Eosinophils (%) (Auto) 4% (0-3) Basophils (%) (Auto) 1% (0-3) Neutrophils # (Auto) 6.0x10^3uL (1.8-7.7) Lymphocytes # (Auto) 1.4x10^3/uL (1.0-4.8) Monocytes # (Auto) 1.1x10^3/uL (0.0-1.1) Eosinophils # (Auto) 0.3x10^3/uL (0.0-0.7) Basophils # (Auto) 0.1x10^3/uL (0.0-0.2) Laboratory Tests Test 10/06/16 11:45 10/06/16 16:28 10/06/16 20:32 10/07/16 04:06 Glucose (Fingerstick) 203mg/dL (70-99) 177mg/dL (70-99) 166mg/dL (70-99) Sodium Level 136mmol/L (136-145) Potassium Level 4.5mmol/L (3.5-5.1) Chloride Level 104mmol/L (98-107) Carbon Dioxide Level 26mmol/L (21-32) Anion Gap 6 (6-14) Blood Urea Nitrogen 21mg/dL (8-26) Creatinine 1.0mg/dL (0.7-1.3) Estimated GFR (Cockcroft-Gault) 73.5 Glucose Level 206mg/dL (70-99) Calcium Level 8.5mg/dL (8.5-10.1) Test 10/07/16 05:57 10/07/16 07:32 Glucose (Fingerstick) 223mg/dL (70-99) White Blood Count 8.8x10^3/uL (4.0-11.0) Red Blood Count 3.06x10^6/uL (4.30-5.70) Hemoglobin 8.9g/dL (13.0-17.5) Hematocrit 26.6% (39.0-53.0) Mean Corpuscular Volume 87fL (79-100) Mean Corpuscular Hemoglobin 29pg (25-35) Mean Corpuscular Hemoglobin Concent 34g/dL (31-37) Red Cell Distribution Width 15.5% (11.5-14.5) Platelet Count 264x10^3/uL (140-400) Neutrophils (%) (Auto) 68% (31-73) Lymphocytes (%) (Auto) 16% (24-48) Monocytes (%) (Auto) 12% (0-9) Eosinophils (%) (Auto) 4% (0-3) Basophils (%) (Auto) 1% (0-3) Neutrophils # (Auto) 6.0x10^3uL (1.8-7.7) Lymphocytes # (Auto) 1.4x10^3/uL (1.0-4.8) Monocytes # (Auto) 1.1x10^3/uL (0.0-1.1) Eosinophils # (Auto) 0.3x10^3/uL (0.0-0.7) Basophils # (Auto) 0.1x10^3/uL (0.0-0.2) Problem List Problems Medical Problems: (1) Cholecystoduodenal fistula Status: Acute (2) Cholelithiasis Status: Acute Assessment/Plan s/p open wero advance to full liquids Problems: LESLIE LOUISE APRN Oct 07, 2016 08:46
[2016-10-07] MEDS: MULTIVITAMIN with MINERAL TABLET. PO SCH (08:52)
[2016-10-07] MEDS: FAMOTIDINE 20 MG TABLET. PO SCH ×2 (08:53→21:28)
[2016-10-07] MEDS: METOPROLOL TART IMMED RELEASE 25 MG TABLET PO SCH ×2 (08:53→21:28)
[2016-10-07] MEDS: EZETIMIBE 10 MG TABLET PO SCH (08:53)
[2016-10-07] MEDS: ENOXAPARIN 40 MG/0.4 ML DISP.SYRIN. SQ SCH (08:54)
[2016-10-07 11:00] VITALS: BP 120/46
[2016-10-07] MEDS: AA 4.25%/CALCIUM/LYTES/D5W 1,000 ML IV SCH (12:32)
--- NOTE | 2016-10-07 13:54 | PDOC ---
PROGRESS NOTES Chief Complaint Chief Complaint 1. Cholelithiasis s/p open Cholecystectomy w/ liver biopsy, repair of duodenotomy, pyloric exclusion, gastrojejunostomy, G-tube placement, J-tube placement 2. Cholcystoduodenostomy fistula 3. HTN 4. Type 2 DM 5. Hyperlipidemia 6. Hx of CABG 7. Obese History of Present Illness History of Present Illness Pt resting comfortably in bed this AM upon arrival to his room. No new complaints at this time. Was able to tolerate clears yesterday. Discussed plans to advance diet per surgery to fulls today to see how he tolerates diet. Some minimal pain in abdomen but under control with pain medication. Still decreased appetite at this time. Vitals Vitals Vital Signs Date Time Temp Pulse Resp B/P Pulse Ox O2 Delivery O2 Flow Rate FiO2 10/07/16 11:00 98.4 61 14 120/46 90 Room Air 98.4 Physical Exam General: Alert, Oriented X3, Cooperative, No acute distress Heart: Regular rate, Normal S1, Normal S2, No murmurs Lungs: Clear, Other (no wheezes or crackles) Abdomen: Soft, Other (ioana drain minimal drainage, j and g tube in place, g tube shows some sedimentary drainage likely from advanced diet) Extremities: No clubbing, No cyanosis, No edema Skin: No rashes, No breakdown Labs LABS Laboratory Tests Test 10/06/16 16:28 10/06/16 20:32 10/07/16 04:06 10/07/16 05:57 Glucose (Fingerstick) 177mg/dL (70-99) 166mg/dL (70-99) 223mg/dL (70-99) Sodium Level 136mmol/L (136-145) Potassium Level 4.5mmol/L (3.5-5.1) Chloride Level 104mmol/L (98-107) Carbon Dioxide Level 26mmol/L (21-32) Anion Gap 6 (6-14) Blood Urea Nitrogen 21mg/dL (8-26) Creatinine 1.0mg/dL (0.7-1.3) Estimated GFR (Cockcroft-Gault) 73.5 Glucose Level 206mg/dL (70-99) Calcium Level 8.5mg/dL (8.5-10.1) Test 10/07/16 07:32 10/07/16 12:05 White Blood Count 8.8x10^3/uL (4.0-11.0) Red Blood Count 3.06x10^6/uL (4.30-5.70) Hemoglobin 8.9g/dL (13.0-17.5) Hematocrit 26.6% (39.0-53.0) Mean Corpuscular Volume 87fL (79-100) Mean Corpuscular Hemoglobin 29pg (25-35) Mean Corpuscular Hemoglobin Concent 34g/dL (31-37) Red Cell Distribution Width 15.5% (11.5-14.5) Platelet Count 264x10^3/uL (140-400) Neutrophils (%) (Auto) 68% (31-73) Lymphocytes (%) (Auto) 16% (24-48) Monocytes (%) (Auto) 12% (0-9) Eosinophils (%) (Auto) 4% (0-3) Basophils (%) (Auto) 1% (0-3) Neutrophils # (Auto) 6.0x10^3uL (1.8-7.7) Lymphocytes # (Auto) 1.4x10^3/uL (1.0-4.8) Monocytes # (Auto) 1.1x10^3/uL (0.0-1.1) Eosinophils # (Auto) 0.3x10^3/uL (0.0-0.7) Basophils # (Auto) 0.1x10^3/uL (0.0-0.2) Glucose (Fingerstick) 215mg/dL (70-99) Review of Systems Review of Systems Complaining of no BM at this time Complainig of Weakness Complaining of decrease appetite Complaining of minimal abominal pain today All other ROS negative Assessment and Plan Assessmemt and Plan Problems Medical Problems: (1) Cholecystoduodenal fistula Status: Acute (2) Cholelithiasis Status: Acute 1. Cholelithiasis s/p open Cholecystectomy w/ liver biopsy, repair of duodenotomy, pyloric exclusion, gastrojejunostomy, G-tube placement, J-tube placement 2. Cholcystoduodenostomy fistula 3. HTN 4. Type 2 DM 5. Hyperlipidemia 6. Hx of CABG 7. Obese Plan: - POD # 6 - Continue care per floor protocol - General Surgery on case- Appreciate Recommendations and help on case - s/p open Cholecystectomy w/ liver biopsy, repair of duodenotomy, pyloric exclusion, gastrojejunostomy, G-tube placement, J-tube placement - Advancing Diet to Full Liquids 10/07/2016 - IOANA Drain- output minimal - J Tube in place for Tube feedings - Continue feedings and procalamine via tube - G Tube in place for gastric suctioning: will continue to monitor - Continue regular Wound Care - Dilaudid TESTING AND REGULATING CHIEF in place for pain control - Continue Regular Home Medications - IV Hydralazine and Metoprolol in place for BP Control - Tolerated Clears yesterday - Will observe pt on Full Liquids today per Surgery Recommendation - Regular Labs in AM - PT/OT to continue to evaluate and treat- walking with walker/assistance - Dispo: Continue with plan of discharge to LTAC when subspecialists feel pt is stable for d/c Problems: Comment Review of Relevant I have reviewed the following items jose (where applicable) has been applied. Labs Laboratory Tests Test 10/05/16 17:05 10/06/16 00:04 10/06/16 03:15 10/06/16 05:49 Glucose (Fingerstick) 177mg/dL (70-99) 185mg/dL (70-99) 206mg/dL (70-99) White Blood Count 8.9x10^3/uL (4.0-11.0) Red Blood Count 3.23x10^6/uL (4.30-5.70) Hemoglobin 9.3g/dL (13.0-17.5) Hematocrit 27.9% (39.0-53.0) Mean Corpuscular Volume 87fL (79-100) Mean Corpuscular Hemoglobin 29pg (25-35) Mean Corpuscular Hemoglobin Concent 33g/dL (31-37) Red Cell Distribution Width 15.5% (11.5-14.5) Platelet Count 236x10^3/uL (140-400) Neutrophils (%) (Auto) 66% (31-73) Lymphocytes (%) (Auto) 16% (24-48) Monocytes (%) (Auto) 13% (0-9) Eosinophils (%) (Auto) 5% (0-3) Basophils (%) (Auto) 1% (0-3) Neutrophils # (Auto) 5.9x10^3uL (1.8-7.7) Lymphocytes # (Auto) 1.4x10^3/uL (1.0-4.8) Monocytes # (Auto) 1.1x10^3/uL (0.0-1.1) Eosinophils # (Auto) 0.4x10^3/uL (0.0-0.7) Basophils # (Auto) 0.0x10^3/uL (0.0-0.2) Sodium Level 138mmol/L (136-145) Potassium Level 4.2mmol/L (3.5-5.1) Chloride Level 104mmol/L (98-107) Carbon Dioxide Level 27mmol/L (21-32) Anion Gap 7 (6-14) Blood Urea Nitrogen 19mg/dL (8-26) Creatinine 1.0mg/dL (0.7-1.3) Estimated GFR (Cockcroft-Gault) 73.5 Glucose Level 208mg/dL (70-99) Calcium Level 8.7mg/dL (8.5-10.1) Test 10/06/16 07:53 10/06/16 11:45 10/06/16 16:28 10/06/16 20:32 Glucose (Fingerstick) 203mg/dL (70-99) 203mg/dL (70-99) 177mg/dL (70-99) 166mg/dL (70-99) Test 10/07/16 04:06 10/07/16 05:57 10/07/16 07:32 10/07/16 12:05 Sodium Level 136mmol/L (136-145) Potassium Level 4.5mmol/L (3.5-5.1) Chloride Level 104mmol/L (98-107) Carbon Dioxide Level 26mmol/L (21-32) Anion Gap 6 (6-14) Blood Urea Nitrogen 21mg/dL (8-26) Creatinine 1.0mg/dL (0.7-1.3) Estimated GFR (Cockcroft-Gault) 73.5 Glucose Level 206mg/dL (70-99) Calcium Level 8.5mg/dL (8.5-10.1) Glucose (Fingerstick) 223mg/dL (70-99) 215mg/dL (70-99) White Blood Count 8.8x10^3/uL (4.0-11.0) Red Blood Count 3.06x10^6/uL (4.30-5.70) Hemoglobin 8.9g/dL (13.0-17.5) Hematocrit 26.6% (39.0-53.0) Mean Corpuscular Volume 87fL (79-100) Mean Corpuscular Hemoglobin 29pg (25-35) Mean Corpuscular Hemoglobin Concent 34g/dL (31-37) Red Cell Distribution Width 15.5% (11.5-14.5) Platelet Count 264x10^3/uL (140-400) Neutrophils (%) (Auto) 68% (31-73) Lymphocytes (%) (Auto) 16% (24-48) Monocytes (%) (Auto) 12% (0-9) Eosinophils (%) (Auto) 4% (0-3) Basophils (%) (Auto) 1% (0-3) Neutrophils # (Auto) 6.0x10^3uL (1.8-7.7) Lymphocytes # (Auto) 1.4x10^3/uL (1.0-4.8) Monocytes # (Auto) 1.1x10^3/uL (0.0-1.1) Eosinophils # (Auto) 0.3x10^3/uL (0.0-0.7) Basophils # (Auto) 0.1x10^3/uL (0.0-0.2) Laboratory Tests Test 10/06/16 16:28 10/06/16 20:32 10/07/16 04:06 10/07/16 05:57 Glucose (Fingerstick) 177mg/dL (70-99) 166mg/dL (70-99) 223mg/dL (70-99) Sodium Level 136mmol/L (136-145) Potassium Level 4.5mmol/L (3.5-5.1) Chloride Level 104mmol/L (98-107) Carbon Dioxide Level 26mmol/L (21-32) Anion Gap 6 (6-14) Blood Urea Nitrogen 21mg/dL (8-26) Creatinine 1.0mg/dL (0.7-1.3) Estimated GFR (Cockcroft-Gault) 73.5 Glucose Level 206mg/dL (70-99) Calcium Level 8.5mg/dL (8.5-10.1) Test 10/07/16 07:32 10/07/16 12:05 White Blood Count 8.8x10^3/uL (4.0-11.0) Red Blood Count 3.06x10^6/uL (4.30-5.70) Hemoglobin 8.9g/dL (13.0-17.5) Hematocrit 26.6% (39.0-53.0) Mean Corpuscular Volume 87fL (79-100) Mean Corpuscular Hemoglobin 29pg (25-35) Mean Corpuscular Hemoglobin Concent 34g/dL (31-37) Red Cell Distribution Width 15.5% (11.5-14.5) Platelet Count 264x10^3/uL (140-400) Neutrophils (%) (Auto) 68% (31-73) Lymphocytes (%) (Auto) 16% (24-48) Monocytes (%) (Auto) 12% (0-9) Eosinophils (%) (Auto) 4% (0-3) Basophils (%) (Auto) 1% (0-3) Neutrophils # (Auto) 6.0x10^3uL (1.8-7.7) Lymphocytes # (Auto) 1.4x10^3/uL (1.0-4.8) Monocytes # (Auto) 1.1x10^3/uL (0.0-1.1) Eosinophils # (Auto) 0.3x10^3/uL (0.0-0.7) Basophils # (Auto) 0.1x10^3/uL (0.0-0.2) Glucose (Fingerstick) 215mg/dL (70-99) Medications Current Medications Sodium Chloride (Iv Sodium Chloride 0.45%) 1,000 ml @ 100 mls/hr Q10H IV Last administered on 09/29/16t 08:18; Start 09/27/16 at 16:50; Stop 09/29/16 at 14:58 ; Status DC Ondansetron HCl (Zofran) 4 mg PRN Q6HRS PRN IV NAUSEA/VOMITING 1ST CHOICE; Start 09/27/16 at 17:00; Stop 10/03/16 at 11:06; Status DC Prochlorperazine Edisylate (Compazine) 10 mg PRN Q6HRS PRN IV NAUSEA/VOMITING 2ND CHOICE; Start 09/27/16 at 17:00 Prochlorperazine (Compazine) 25 mg PRN Q12HR PRN [place] NAUSEA/VOMITING; Start at 17:00 Al Hydrox/Mg Hydrox/Simethicone (Mylanta Plus Xs) 30 ml PRN Q3HRS PRN PO HEARTBURN / GAS; Start 09/27/16 at 17:00 Calcium Carbonate/ Glycine (Tums) 500 mg PRN Q3HRS PRN PO UPSET STOMACH; Start 09/27/16 at 17:00 Oxycodone HCl (Roxicodone) 5 mg PRN Q3HRS PRN PO BREAKTHROUGH PAIN; Start 09/27 at 17:00 Morphine Sulfate 2 mg PRN Q2HR PRN IV MILD-MOD PAIN Last administered on 01:29; Start 09/27/16 at 17:00 Magnesium Hydroxide (Milk Of Magnesia) 2,400 mg PRN Q12HR PRN PO CONSTIPATION; Start 09/27/16 at 17:00; Stop 09/27/16 at 17:15; Status DC Lactulose 20 gm PRN Q12HR PRN PO CONSTIPATION; Start 09/27/16 at 17:00; Stop at 17:15; Status DC Bisacodyl (Dulcolax Supp) 10 mg PRN DAILY PRN [place] CONSTIPATION; Start 09/27/16 at 17:00; Stop 09/27/16 at 17:15; Status DC EZETIMIBE (Zetia) 10 mg DAILY PO Last administered on 10/07/16 08:53; Start at 09:00 Metoprolol Tartrate (Lopressor) 12.5 mg HS PO Last administered on 09/30/16 21 :28; Start 09/27/16 at 21:00; Stop 10/03/16 at 11:08; Status DC Atorvastatin Calcium (Lipitor) 80 mg QHS PO Last administered on 10/06/16 21: 42; Start 09/27/16 at 21:00 Glipizide (Glucotrol) 10 mg BIDBFRMEAL PO ; Start 09/27/16 at 17:00; Stop at 17:15; Status DC Multivitamins/ Calcium (Thera M Plus) 1 tab DAILY PO Last administered on 08:52; Start 09/28/16 at 09:00 Non-Formulary Medication 99 mg DAILY PO ; Start 09/28/16 at 09:00; Status UNV Famotidine (Pepcid) 20 mg BID PO Last administered on 09/30/16 21:28; Start at 21:00; Stop 10/03/16 at 11:05; Status DC Insulin Aspart (Novolog) 0-5 UNITS TIDWMEALS SQ Last administered on 09/30/16 12:04; Start 09/28/16 at 12:00; Stop 10/02/16 at 08:45; Status DC Dextrose 12.5 gm PRN Q15MIN PRN IV SEE COMMENTS; Start 09/28/16 at 09:45 Acetaminophen 650 mg 650 mg PRN Q6HRS PRN PO MILD PAIN / TEMP; Start 09/29/16 at 15:00 Levofloxacin/ Dextrose (LEVAQUIN 750mg PREMIX) 150 ml @ 100 mls/hr 1X PREOP PRN IV iron setter to OR Last administered on 10/01/16 13:12; Start 10/01/16 at 09: 15; Stop 10/02/16 at 18:00; Status DC Ondansetron HCl (Zofran) 4 mg PRN Q6HRS PRN IV Nausea; Start 10/01/16 at 12:15 ; Stop 10/02/16 at 12:14; Status DC Fentanyl Citrate (Fentanyl 2ml Vial) 25 mcg PRN Q5MIN PRN IV MILD PAIN; Start 10/01/16 at 12:15; Stop 10/02/16 at 12:14; Status DC Fentanyl Citrate (Fentanyl 2ml Vial) 50 mcg PRN Q5MIN PRN IV MODERATE PAIN Last administered on 10/01/16 18:00; Start 10/01/16 at 12:15; Stop 10/02/16 at 12:14; Status DC Morphine Sulfate 1 mg 1 mg PRN Q10MIN PRN IV SEVERE PAIN; Start 10/01/16 at 12: 15; Stop 10/02/16 at 12:14; Status DC Lactated Ringer's (Iv Lactated Ringers) 1,000 ml @ 0 mls/hr Q0M IV Last administered on 10/01/16 12:18; Start 10/01/16 at 12:09; Stop 10/02/16 at 00:08 ; Status DC Lidocaine HCl 2 ml 1X PRN PRN ID IV START; Start 10/01/16 at 12:15; Stop at 12:14; Status DC Hydromorphone HCl (Dilaudid) 0.5 mg PRN Q10MIN PRN IV SEV PAIN,Second choice; Start 10/01/16 at 12:15; Stop 10/02/16 at 12:14; Status DC Prochlorperazine Edisylate 5 mg 5 mg PACU PRN PRN IV NAUSEA Last administered on 10/01/16 17:23; Start 10/01/16 at 12:15; Stop 10/02/16 at 12:14; Status DC Heparin Sodium (Porcine)/Sodium Chloride (Iv Sodium Chloride 0.9% 1000ml Bag) 1, 001 ml @ 1,001 mls/hr 1X PERIOP ONCE IRR ; Start 10/01/16 at 13:00; Stop 10/01 at 14:04; Status DC Bupivacaine HCl/ Epinephrine Bitart 30 ml 30 ml STK-MED ONCE IJ Last administered on 10/01/16 13:29; Start 10/01/16 at 13:29; Stop 10/01/16 at 14:04 ; Status DC Ertapenem/Sodium Chloride (Invanz/Iv Sodium Chloride 0.9% 50ml) 50 ml @ 100 mls /hr Q24H IV Last administered on 10/05/16 17:04; Start 10/01/16 at 17:00; Stop 10/06/16 at 13:30; Status DC Famotidine (Pepcid) 20 mg BID IVP Last administered on 10/06/16 08:32; Start 10/01/16 at 21:00; Stop 10/06/16 at 13:05; Status DC Enoxaparin Sodium (Lovenox 40mg Syringe) 40 mg Q24H SQ ; Start 10/01/16 at 17:00 ; Stop 10/02/16 at 01:44; Status DC Sodium Chloride 3 ml 3 ml QSHIFT PRN IV AFTER MEDS AND BLOOD DRAWS; Start 10/01 at 16:45 Lactated Ringer's (Iv Lactated Ringers) 1,000 ml @ 100 mls/hr Q10H IV Last administered on 10/06/16 03:27; Start 10/01/16 at 16:39; Stop 10/06/16 at 09:56 ; Status DC Naloxone HCl 0.4 mg 0.4 mg PRN Q2MIN PRN IV SEE INSTRUCTIONS; Start 10/01/16 at 16:45; Stop 10/03/16 at 11:06; Status DC Sodium Chloride 1,000 ml @ 25 mls/hr Q24H IV ; Start 10/01/16 at 16:39; Stop at 11:05; Status DC Morphine Sulfate (Morphine 30 Mg/ 30 ml TESTING AND REGULATING CHIEF) 30 ml @ 0 mls/hr CONT PRN PRN IV PROTOCOL Last administered on 10/01/16 17:34; Start 10/01/16 at 16:45; Stop at 09:09; Status DC Ondansetron HCl (Zofran) 4 mg PRN Q6HRS PRN IV NAUESA, 1ST CHOICE; Start at 16:45 Enoxaparin Sodium (Lovenox 40mg Syringe) 40 mg Q24H SQ Last administered on 08:54; Start 10/02/16 at 09:00 Insulin Aspart (Novolog) 0-5 UNITS Q6HRS SQ Last administered on 10/07/16 12: 38; Start 10/02/16 at 09:00 Lidocaine HCl 5 ml 5 ml STK-MED ONCE .ROUTE ; Start 10/01/16 at 10:50; Stop at 09:51; Status DC Propofol (Diprivan) 100 ml @ As Directed STK-MED ONCE IV ; Start 10/01/16 at 10 :50; Stop 10/02/16 at 09:51; Status DC Rocuronium [place] (Zemuron) 50 mg STK-MED ONCE .ROUTE ; Start 10/01/16 at 10:50 ; Stop 10/02/16 at 09:51; Status DC Fentanyl Citrate (Fentanyl 2ml Vial) 100 mcg STK-MED ONCE .ROUTE ; Start at 11:45; Stop 10/02/16 at 09:52; Status DC Dexamethasone Sodium Phosphate (Decadron) 20 mg STK-MED ONCE .ROUTE ; Start at 11:45; Stop 10/02/16 at 09:52; Status DC Ondansetron HCl (Zofran) 4 mg STK-MED ONCE .ROUTE ; Start 10/01/16 at 11:45; Stop 10/02/16 at 09:52; Status DC Ketorolac Tromethamine (Toradol For Or Only) 30 mg STK-MED ONCE INJ ; Start at 11:45; Stop 10/02/16 at 09:52; Status DC Glycopyrrolate (Robinul) 1 mg STK-MED ONCE .ROUTE ; Start 10/01/16 at 11:46; Stop 10/02/16 at 09:52; Status DC Neostigmine Methylsulfate 5 mg STK-MED ONCE .ROUTE ; Start 10/01/16 at 11:46; Stop 10/02/16 at 09:52; Status DC Bupivacaine HCl/ Epinephrine Bitart (Sensorcain-Mpf Epi 0.5%-[id number]) 30 ml STK -MED ONCE .ROUTE ; Start 10/01/16 at 12:57; Stop 10/02/16 at 09:54; Status DC Iohexol (Omnipaque 300 Mg/ml) 50 ml STK-MED ONCE .ROUTE ; Start 10/01/16 at 12: 58; Stop 10/02/16 at 09:54; Status DC Cellulose 1 each STK-MED ONCE .ROUTE ; Start 10/01/16 at 12:58; Stop 10/02/16 at 09:54; Status DC Bisacodyl (Dulcolax Supp) 10 mg STK-MED ONCE .ROUTE ; Start 10/01/16 at 12:58; Stop 10/02/16 at 09:54; Status DC Desflurane (Suprane) 60 ml STK-MED ONCE IH ; Start 10/01/16 at 13:18; Stop 10/02 at 09:54; Status DC Fentanyl Citrate (Fentanyl 2ml Vial) 100 mcg STK-MED ONCE .ROUTE ; Start at 13:21; Stop 10/02/16 at 09:54; Status DC Ephedrine Sulfate 50 mg STK-MED ONCE IV ; Start 10/01/16 at 13:23; Stop at 09:55; Status DC Esmolol HCl (Brevibloc) 100 mg STK-MED ONCE IV ; Start 10/01/16 at 13:49; Stop 10/02/16 at 09:55; Status DC Rocuronium [place] (Zemuron) 50 mg STK-MED ONCE .ROUTE ; Start 10/01/16 at 13:50 ; Stop 10/02/16 at 09:55; Status DC Fentanyl Citrate (Fentanyl 2ml Vial) 100 mcg STK-MED ONCE .ROUTE ; Start at 14:13; Stop 10/02/16 at 09:56; Status DC Desflurane (Suprane) 90 ml STK-MED ONCE IH ; Start 10/01/16 at 14:57; Stop 10/02 at 09:56; Status DC Morphine Sulfate 10 mg STK-MED ONCE .ROUTE ; Start 10/01/16 at 15:16; Stop 10/02 at 09:57; Status DC Sodium Chloride (Sodium Chloride) 50 ml STK-MED ONCE IJ ; Start 10/01/16 at 15: 17; Stop 10/02/16 at 09:57; Status DC Famotidine 20 mg 20 mg STK-MED ONCE .ROUTE ; Start 10/01/16 at 16:20; Stop 10/02 at 09:58; Status DC Amino Acids/ Electrolytes (Clinimix E 2.75%-5% Solution) 1,000 ml @ 80 mls/hr [id number] IV Last administered on 10/05/16 05:44; Start 10/02/16 at 14:00; Stop 10/05/16 at 15:42; Status DC Naloxone HCl 0.4 mg 0.4 mg PRN Q2MIN PRN IV SEE INSTRUCTIONS; Start 10/03/16 at 09:15 Sodium Chloride 1,000 ml @ 25 mls/hr Q24H IV ; Start 10/03/16 at 09:09; Stop at 09:56; Status DC Hydromorphone HCl (Dilaudid Standard TESTING AND REGULATING CHIEF) 30 ml @ 0 mls/hr CONT PRN PRN IV PROTOCOL Last administered on 10/03/16t 10:14; Start 10/03/16 at 09:15; Stop at 08:36; Status DC Metoprolol Tartrate (Lopressor) 2.5 mg Q6HRS IVP Last administered on 00:06; Start 10/03/16 at 12:00; Stop 10/06/16 at 09:56; Status DC Hydralazine HCl 10 mg 10 mg PRN Q4HRS PRN IVP ELEVATED BP, SEE COMMENTS; Start 10/03/16 at 11:15 Amino Acids/ Electrolytes/ Dextrose (Clinimix E 4.25%-5% Solution) 1,000 ml @ 80 mls/hr [id number] IV Last administered on 10/07/16 12:32; Start 10/05/16 at 15 :42 Oxycodone/ Acetaminophen (Percocet 5/325) 1 tab PRN Q4HRS PRN PO PAIN Last administered on 10/07/16 02:37; Start 10/06/16 at 08:45 Hydromorphone HCl (Dilaudid) 0.4 mg PRN Q4HRS PRN IVP PAIN; Start 10/06/16 at 08:45 Oxycodone/ Acetaminophen (Percocet 5/325) 2 tab PRN Q4HRS PRN PO PAIN Last administered on 10/07/16 08:52; Start 10/06/16 at 08:45 Metoprolol Tartrate (Lopressor) 25 mg BID PO Last administered on 10/07/16 08: 53; Start 10/06/16 at 10:00 Insulin Detemir (Levemir) 10 units QHS SQ Last administered on 10/06/16 21:58 ; Start 10/06/16 at 21:00 Famotidine (Pepcid) 20 mg BID PO Last administered on 10/07/16 08:53; Start at 21:00 Amoxicillin/ Clavulanate Potassium (Augmentin 875/ 125mg) 1 tab BID PO ; Start 10/06/16 at 14:00; Stop 10/06/16 at 15:42; Status DC Levofloxacin (Levaquin) 500 mg DAILY06 PO ; Start 10/07/16 at 16:00; Stop at 15:59 Metronidazole (Flagyl) 500 mg Q8HRS PO Last administered on 10/07/16t 05:58; Start 10/06/16 at 16:00; Stop 10/11/16 at 15:59 Active Scripts Active Reported Potassium Gluconate 99 Mg Tablet 99 Mg PO DAILY Men's Multi-Vitamin (Multivitamin) 1 Each Tablet 1 Each PO DAILY Aspirin 325 Mg Tablet 1 Tab PO DAILY Ranitidine Hcl 300 Mg Tablet 1 Tab PO BID Glipizide 10 Mg Tablet 1 Tab PO BIDWMEALS Zetia (Ezetimibe) 10 Mg Tablet 1 Tab PO DAILY Atorvastatin Calcium 80 Mg Tablet 1 Tab PO HS Metoprolol Tartrate 25 Mg Tablet 12.5 Mg PO HS Vitals/I & O Vital Sign - Last 24 Hours 10/06/16 10/06/16 10/06/16 10/06/16 14:40 19:00 20:30 21:43 Temp 97.5 98.5 97.5 98.5 Pulse 69 68 69 Resp 20 18 B/P 143/40 135/45 143/40 Pulse Ox 94 92 O2 Delivery Room Air Room Air Room Air 10/06/16 10/07/16 10/07/16 10/07/16 23:00 03:00 07:00 07:35 Temp 98.7 98.7 98.1 98.7 98.7 98.1 Pulse 60 56 76 Resp 18 18 14 B/P 127/57 135/52 122/54 Pulse Ox 94 93 93 O2 Delivery Room Air Room Air Room Air Room Air 10/07/16 10/07/16 10/07/16 10/07/16 08:52 08:53 10:05 11:00 Temp 98.4 98.4 Pulse 76 61 Resp 14 B/P 122/54 120/46 Pulse Ox 90 O2 Delivery Room Air Room Air Room Air Intake and Output 10/06/16 10/06/16 10/07/16 15:00 23:00 07:00 Intake Total 350 ml 425 ml Output Total 700 ml 500 ml Balance -350 ml 425 ml -500 ml CORI LINDSAY III DO Oct 07, 2016 13:54
[2016-10-07 15:00] VITALS: BP 126/50
[2016-10-07] MEDS: LEVOFLOXACIN 500 MG TABLET PO SCH (17:14)
[2016-10-07 19:00] VITALS: BP 135/46
[2016-10-07] MEDS: ATORVASTATIN CALCIUM 40 MG TABLET. PO SCH (21:28)
[2016-10-07] MEDS: INSULIN DETEMIR 300 UNITS/3 ML INSULN.PEN. SQ SCH (21:33)
[2016-10-07 23:00] VITALS: BP 130/82
[2016-10-08] MEDS: OXYCODONE/APAP 5/325 TABLET. PO PRN ×3 (02:31→21:15)
[2016-10-08] MEDS: AA 4.25%/CALCIUM/LYTES/D5W 1,000 ML IV SCH ×2 (02:35→16:10)
[2016-10-08 03:00] VITALS: BP 136/58
[2016-10-08 05:26] LABS: BASO # 0.1 x10^3/uL (0.0-0.2); BASO % 1 % (0-3); EOS % 4 % (0-3); HEMATOCRIT 27.7 % (39.0-53.0); HEMOGLOBIN 9.4 g/dL (13.0-17.5); LYMPH # 1.4 x10^3/uL (1.0-4.8); LYMPH % 14 % (24-48); MEAN CORPUSCULAR HEMOGLOBIN 29 pg (25-35); MEAN CORPUSCULAR HGB CONC 34 g/dL (31-37); MEAN CORPUSCULAR VOLUME 85 fL (79-100); MONO % 12 % (0-9); NEUT % 69 % (31-73); PLATELET COUNT 284 x10^3/uL (140-400); RED BLOOD COUNT 3.25 x10^6/uL (4.30-5.70); RED CELL DISTRIBUTION WIDTH 15.6 % (11.5-14.5); WHITE BLOOD COUNT 9.6 x10^3/uL (4.0-11.0)
[2016-10-08 05:49] LABS: CREATININE 1.1 mg/dL (0.7-1.3); GFR 65.8; POTASSIUM 4.3 mmol/L (3.5-5.1)
[2016-10-08] MEDS: METRONIDAZOLE 500 MG TABLET. PO SCH ×3 (06:19→21:16)
[2016-10-08] MEDS: LEVOFLOXACIN 500 MG TABLET PO SCH (06:19)
[2016-10-08 07:00] VITALS: BP 133/41
[2016-10-08] MEDS: ENOXAPARIN 40 MG/0.4 ML DISP.SYRIN. SQ SCH (08:15)
[2016-10-08] MEDS: MULTIVITAMIN with MINERAL TABLET. PO SCH (08:15)
[2016-10-08] MEDS: EZETIMIBE 10 MG TABLET PO SCH (08:15)
[2016-10-08] MEDS: METOPROLOL TART IMMED RELEASE 25 MG TABLET PO SCH ×2 (08:15→21:15)
[2016-10-08] MEDS: FAMOTIDINE 20 MG TABLET. PO SCH ×2 (08:15→21:15)
[2016-10-08] MEDS: INSULIN ASPART 300 UNITS/3 ML INSULN.PEN SQ SCH ×4 (08:28→21:06)
--- NOTE | 2016-10-08 09:21 | PDOC ---
PROGRESS NOTES Chief Complaint Chief Complaint 1. Cholelithiasis: s/p ERCP w/sphincterotomy in outside facility. s/p lap. - > open CCY w/ repair of cholecystoduodenostomy fistula, liver biopsy, G-tube and J tube placement 2. Complicated Cholecystitis/ w peritonitis: 3. HTN: controlled. 4. DM2: Levemir with SSI 5. HLD: statin 6. CAD: hx CABG, no acute issues 7. Prophylaxis: Lovenox Disposition: awaiting final surgery recommendations home health vs SNU History of Present Illness History of Present Illness walking good no fever no chills no acute events. Vitals Vitals Vital Signs Date Time Temp Pulse Resp B/P Pulse Ox O2 Delivery O2 Flow Rate FiO2 10/08/16 09:11 Room Air 10/08/16 03:00 98.1 70 18 136/58 95 98.1 Physical Exam General: Alert, Oriented X3, Cooperative, No acute distress Heart: Regular rate, Normal S1, Normal S2, No murmurs Lungs: Clear, Other (no wheezes or crackles) Abdomen: Soft, Other (ioana drain minimal drainage, j and g tube in place, g tube shows some sedimentary drainage likely from advanced diet) Extremities: No clubbing, No cyanosis, No edema Skin: No rashes, No breakdown Labs LABS Laboratory Tests Test 10/07/16 12:05 10/07/16 16:48 10/07/16 21:04 10/08/16 04:40 Glucose (Fingerstick) 215mg/dL (70-99) 140mg/dL (70-99) 169mg/dL (70-99) White Blood Count 9.6x10^3/uL (4.0-11.0) Red Blood Count 3.25x10^6/uL (4.30-5.70) Hemoglobin 9.4g/dL (13.0-17.5) Hematocrit 27.7% (39.0-53.0) Mean Corpuscular Volume 85fL (79-100) Mean Corpuscular Hemoglobin 29pg (25-35) Mean Corpuscular Hemoglobin Concent 34g/dL (31-37) Red Cell Distribution Width 15.6% (11.5-14.5) Platelet Count 284x10^3/uL (140-400) Neutrophils (%) (Auto) 69% (31-73) Lymphocytes (%) (Auto) 14% (24-48) Monocytes (%) (Auto) 12% (0-9) Eosinophils (%) (Auto) 4% (0-3) Basophils (%) (Auto) 1% (0-3) Neutrophils # (Auto) 6.6x10^3uL (1.8-7.7) Lymphocytes # (Auto) 1.4x10^3/uL (1.0-4.8) Monocytes # (Auto) 1.2x10^3/uL (0.0-1.1) Eosinophils # (Auto) 0.3x10^3/uL (0.0-0.7) Basophils # (Auto) 0.1x10^3/uL (0.0-0.2) Sodium Level 140mmol/L (136-145) Potassium Level 4.3mmol/L (3.5-5.1) Chloride Level 104mmol/L (98-107) Carbon Dioxide Level 27mmol/L (21-32) Anion Gap 9 (6-14) Blood Urea Nitrogen 22mg/dL (8-26) Creatinine 1.1mg/dL (0.7-1.3) Estimated GFR (Cockcroft-Gault) 65.8 Glucose Level 202mg/dL (70-99) Calcium Level 9.0mg/dL (8.5-10.1) Test 10/08/16 07:35 Glucose (Fingerstick) 199mg/dL (70-99) Assessment and Plan Assessmemt and Plan Problems Medical Problems: (1) Cholecystoduodenal fistula Status: Acute (2) Cholelithiasis Status: Acute Problems: Comment Review of Relevant I have reviewed the following items jose (where applicable) has been applied. Labs Laboratory Tests Test 10/06/16 11:45 10/06/16 16:28 10/06/16 20:32 10/07/16 04:06 Glucose (Fingerstick) 203mg/dL (70-99) 177mg/dL (70-99) 166mg/dL (70-99) Sodium Level 136mmol/L (136-145) Potassium Level 4.5mmol/L (3.5-5.1) Chloride Level 104mmol/L (98-107) Carbon Dioxide Level 26mmol/L (21-32) Anion Gap 6 (6-14) Blood Urea Nitrogen 21mg/dL (8-26) Creatinine 1.0mg/dL (0.7-1.3) Estimated GFR (Cockcroft-Gault) 73.5 Glucose Level 206mg/dL (70-99) Calcium Level 8.5mg/dL (8.5-10.1) Test 10/07/16 05:57 10/07/16 07:32 10/07/16 12:05 10/07/16 16:48 Glucose (Fingerstick) 223mg/dL (70-99) 215mg/dL (70-99) 140mg/dL (70-99) White Blood Count 8.8x10^3/uL (4.0-11.0) Red Blood Count 3.06x10^6/uL (4.30-5.70) Hemoglobin 8.9g/dL (13.0-17.5) Hematocrit 26.6% (39.0-53.0) Mean Corpuscular Volume 87fL (79-100) Mean Corpuscular Hemoglobin 29pg (25-35) Mean Corpuscular Hemoglobin Concent 34g/dL (31-37) Red Cell Distribution Width 15.5% (11.5-14.5) Platelet Count 264x10^3/uL (140-400) Neutrophils (%) (Auto) 68% (31-73) Lymphocytes (%) (Auto) 16% (24-48) Monocytes (%) (Auto) 12% (0-9) Eosinophils (%) (Auto) 4% (0-3) Basophils (%) (Auto) 1% (0-3) Neutrophils # (Auto) 6.0x10^3uL (1.8-7.7) Lymphocytes # (Auto) 1.4x10^3/uL (1.0-4.8) Monocytes # (Auto) 1.1x10^3/uL (0.0-1.1) Eosinophils # (Auto) 0.3x10^3/uL (0.0-0.7) Basophils # (Auto) 0.1x10^3/uL (0.0-0.2) Test 10/07/16 21:04 10/08/16 04:40 10/08/16 07:35 Glucose (Fingerstick) 169mg/dL (70-99) 199mg/dL (70-99) White Blood Count 9.6x10^3/uL (4.0-11.0) Red Blood Count 3.25x10^6/uL (4.30-5.70) Hemoglobin 9.4g/dL (13.0-17.5) Hematocrit 27.7% (39.0-53.0) Mean Corpuscular Volume 85fL (79-100) Mean Corpuscular Hemoglobin 29pg (25-35) Mean Corpuscular Hemoglobin Concent 34g/dL (31-37) Red Cell Distribution Width 15.6% (11.5-14.5) Platelet Count 284x10^3/uL (140-400) Neutrophils (%) (Auto) 69% (31-73) Lymphocytes (%) (Auto) 14% (24-48) Monocytes (%) (Auto) 12% (0-9) Eosinophils (%) (Auto) 4% (0-3) Basophils (%) (Auto) 1% (0-3) Neutrophils # (Auto) 6.6x10^3uL (1.8-7.7) Lymphocytes # (Auto) 1.4x10^3/uL (1.0-4.8) Monocytes # (Auto) 1.2x10^3/uL (0.0-1.1) Eosinophils # (Auto) 0.3x10^3/uL (0.0-0.7) Basophils # (Auto) 0.1x10^3/uL (0.0-0.2) Sodium Level 140mmol/L (136-145) Potassium Level 4.3mmol/L (3.5-5.1) Chloride Level 104mmol/L (98-107) Carbon Dioxide Level 27mmol/L (21-32) Anion Gap 9 (6-14) Blood Urea Nitrogen 22mg/dL (8-26) Creatinine 1.1mg/dL (0.7-1.3) Estimated GFR (Cockcroft-Gault) 65.8 Glucose Level 202mg/dL (70-99) Calcium Level 9.0mg/dL (8.5-10.1) Laboratory Tests Test 10/07/16 12:05 10/07/16 16:48 10/07/16 21:04 10/08/16 04:40 Glucose (Fingerstick) 215mg/dL (70-99) 140mg/dL (70-99) 169mg/dL (70-99) White Blood Count 9.6x10^3/uL (4.0-11.0) Red Blood Count 3.25x10^6/uL (4.30-5.70) Hemoglobin 9.4g/dL (13.0-17.5) Hematocrit 27.7% (39.0-53.0) Mean Corpuscular Volume 85fL (79-100) Mean Corpuscular Hemoglobin 29pg (25-35) Mean Corpuscular Hemoglobin Concent 34g/dL (31-37) Red Cell Distribution Width 15.6% (11.5-14.5) Platelet Count 284x10^3/uL (140-400) Neutrophils (%) (Auto) 69% (31-73) Lymphocytes (%) (Auto) 14% (24-48) Monocytes (%) (Auto) 12% (0-9) Eosinophils (%) (Auto) 4% (0-3) Basophils (%) (Auto) 1% (0-3) Neutrophils # (Auto) 6.6x10^3uL (1.8-7.7) Lymphocytes # (Auto) 1.4x10^3/uL (1.0-4.8) Monocytes # (Auto) 1.2x10^3/uL (0.0-1.1) Eosinophils # (Auto) 0.3x10^3/uL (0.0-0.7) Basophils # (Auto) 0.1x10^3/uL (0.0-0.2) Sodium Level 140mmol/L (136-145) Potassium Level 4.3mmol/L (3.5-5.1) Chloride Level 104mmol/L (98-107) Carbon Dioxide Level 27mmol/L (21-32) Anion Gap 9 (6-14) Blood Urea Nitrogen 22mg/dL (8-26) Creatinine 1.1mg/dL (0.7-1.3) Estimated GFR (Cockcroft-Gault) 65.8 Glucose Level 202mg/dL (70-99) Calcium Level 9.0mg/dL (8.5-10.1) Test 10/08/16 07:35 Glucose (Fingerstick) 199mg/dL (70-99) Medications Current Medications Sodium Chloride (Iv Sodium Chloride 0.45%) 1,000 ml @ 100 mls/hr Q10H IV Last administered on 09/29/16 08:18; Start 09/27/16 at 16:50; Stop 09/29/16 at 14:58 ; Status DC Ondansetron HCl (Zofran) 4 mg PRN Q6HRS PRN IV NAUSEA/VOMITING 1ST CHOICE; Start 09/27/16 at 17:00; Stop 10/03/16 at 11:06; Status DC Prochlorperazine Edisylate (Compazine) 10 mg PRN Q6HRS PRN IV NAUSEA/VOMITING 2ND CHOICE; Start 09/27/16 at 17:00 Prochlorperazine (Compazine) 25 mg PRN Q12HR PRN PA NAUSEA/VOMITING; Start at 17:00 Al Hydrox/Mg Hydrox/Simethicone (Mylanta Plus Xs) 30 ml PRN Q3HRS PRN PO HEARTBURN / GAS; Start 09/27/16 at 17:00 Calcium Carbonate/ Glycine (Tums) 500 mg PRN Q3HRS PRN PO UPSET STOMACH; Start 09/27/16 at 17:00 Oxycodone HCl (Roxicodone) 5 mg PRN Q3HRS PRN PO BREAKTHROUGH PAIN; Start 09/27 at 17:00 Morphine Sulfate 2 mg PRN Q2HR PRN IV MILD-MOD PAIN Last administered on t 01:29; Start 09/27/16 at 17:00 Magnesium Hydroxide (Milk Of Magnesia) 2,400 mg PRN Q12HR PRN PO CONSTIPATION; Start 09/27/16 at 17:00; Stop 09/27/16 at 17:15; Status DC Lactulose 20 gm PRN Q12HR PRN PO CONSTIPATION; Start 09/27/16 at 17:00; Stop at 17:15; Status DC Bisacodyl (Dulcolax Supp) 10 mg PRN DAILY PRN PA CONSTIPATION; Start 09/27/16 at 17:00; Stop 09/27/16 at 17:15; Status DC EZETIMIBE (Zetia) 10 mg DAILY PO Last administered on 10/08/16 08:15; Start at 09:00 Metoprolol Tartrate (Lopressor) 12.5 mg HS PO Last administered on 09/30/16 21 :28; Start 09/27/16 at 21:00; Stop 10/03/16 at 11:08; Status DC Atorvastatin Calcium (Lipitor) 80 mg QHS PO Last administered on 10/07/16 21: 28; Start 09/27/16 at 21:00 Glipizide (Glucotrol) 10 mg BIDBFRMEAL PO ; Start 09/27/16 at 17:00; Stop at 17:15; Status DC Multivitamins/ Calcium (Thera M Plus) 1 tab DAILY PO Last administered on 08:15; Start 09/28/16 at 09:00 Non-Formulary Medication 99 mg DAILY PO ; Start 09/28/16 at 09:00; Status UNV Famotidine (Pepcid) 20 mg BID PO Last administered on 09/30/16 21:28; Start at 21:00; Stop 10/03/16 at 11:05; Status DC Insulin Aspart (Novolog) 0-5 UNITS TIDWMEALS SQ Last administered on 09/30/16 12:04; Start 09/28/16 at 12:00; Stop 10/02/16 at 08:45; Status DC Dextrose 12.5 gm PRN Q15MIN PRN IV SEE COMMENTS; Start 09/28/16 at 09:45 Acetaminophen 650 mg 650 mg PRN Q6HRS PRN PO MILD PAIN / TEMP; Start 09/29/16 at 15:00 Levofloxacin/ Dextrose (LEVAQUIN 750mg PREMIX) 150 ml @ 100 mls/hr 1X PREOP PRN IV quality control lab tech to OR Last administered on 10/01/16 13:12; Start 10/01/16 at 09: 15; Stop 10/02/16 at 18:00; Status DC Ondansetron HCl (Zofran) 4 mg PRN Q6HRS PRN IV Nausea; Start 10/01/16 at 12:15 ; Stop 10/02/16 at 12:14; Status DC Fentanyl Citrate (Fentanyl 2ml Vial) 25 mcg PRN Q5MIN PRN IV MILD PAIN; Start 10/01/16 at 12:15; Stop 10/02/16 at 12:14; Status DC Fentanyl Citrate (Fentanyl 2ml Vial) 50 mcg PRN Q5MIN PRN IV MODERATE PAIN Last administered on 10/01/16 18:00; Start 10/01/16 at 12:15; Stop 10/02/16 at 12:14; Status DC Morphine Sulfate 1 mg 1 mg PRN Q10MIN PRN IV SEVERE PAIN; Start 10/01/16 at 12: 15; Stop 10/02/16 at 12:14; Status DC Lactated Ringer's (Iv Lactated Ringers) 1,000 ml @ 0 mls/hr Q0M IV Last administered on 10/01/16 12:18; Start 10/01/16 at 12:09; Stop 10/02/16 at 00:08 ; Status DC Lidocaine HCl 2 ml 1X PRN PRN ID IV START; Start 10/01/16 at 12:15; Stop at 12:14; Status DC Hydromorphone HCl (Dilaudid) 0.5 mg PRN Q10MIN PRN IV SEV PAIN,Second choice; Start 10/01/16 at 12:15; Stop 10/02/16 at 12:14; Status DC Prochlorperazine Edisylate 5 mg 5 mg PACU PRN PRN IV NAUSEA Last administered on 10/01/16 17:23; Start 10/01/16 at 12:15; Stop 10/02/16 at 12:14; Status DC Heparin Sodium (Porcine)/Sodium Chloride (Iv Sodium Chloride 0.9% 1000ml Bag) 1, 001 ml @ 1,001 mls/hr 1X PERIOP ONCE IRR ; Start 10/01/16 at 13:00; Stop 10/01 at 14:04; Status DC Bupivacaine HCl/ Epinephrine Bitart 30 ml 30 ml STK-MED ONCE IJ Last administered on 10/01/16 13:29; Start 10/01/16 at 13:29; Stop 10/01/16 at 14:04 ; Status DC Ertapenem/Sodium Chloride (Invanz/Iv Sodium Chloride 0.9% 50ml) 50 ml @ 100 mls /hr Q24H IV Last administered on 10/05/16 17:04; Start 10/01/16 at 17:00; Stop 10/06/16 at 13:30; Status DC Famotidine (Pepcid) 20 mg BID IVP Last administered on 10/06/16 08:32; Start 10/01/16 at 21:00; Stop 10/06/16 at 13:05; Status DC Enoxaparin Sodium (Lovenox 40mg Syringe) 40 mg Q24H SQ ; Start 10/01/16 at 17:00 ; Stop 10/02/16 at 01:44; Status DC Sodium Chloride 3 ml 3 ml QSHIFT PRN IV AFTER MEDS AND BLOOD DRAWS; Start 10/01 at 16:45 Lactated Ringer's (Iv Lactated Ringers) 1,000 ml @ 100 mls/hr Q10H IV Last administered on 10/06/16 03:27; Start 10/01/16 at 16:39; Stop 10/06/16 at 09:56 ; Status DC Naloxone HCl 0.4 mg 0.4 mg PRN Q2MIN PRN IV SEE INSTRUCTIONS; Start 10/01/16 at 16:45; Stop 10/03/16 at 11:06; Status DC Sodium Chloride 1,000 ml @ 25 mls/hr Q24H IV ; Start 10/01/16 at 16:39; Stop at 11:05; Status DC Morphine Sulfate (Morphine 30 Mg/ 30 ml CONNECTION WORKER) 30 ml @ 0 mls/hr CONT PRN PRN IV PROTOCOL Last administered on 10/01/16 17:34; Start 10/01/16 at 16:45; Stop at 09:09; Status DC Ondansetron HCl (Zofran) 4 mg PRN Q6HRS PRN IV NAUESA, 1ST CHOICE; Start at 16:45 Enoxaparin Sodium (Lovenox 40mg Syringe) 40 mg Q24H SQ Last administered on 08:15; Start 10/02/16 at 09:00 Insulin Aspart (Novolog) 0-5 UNITS Q6HRS SQ Last administered on 10/07/16 12: 38; Start 10/02/16 at 09:00; Stop 10/07/16 at 13:52; Status DC Lidocaine HCl 5 ml 5 ml STK-MED ONCE .ROUTE ; Start 10/01/16 at 10:50; Stop at 09:51; Status DC Propofol (Diprivan) 100 ml @ As Directed STK-MED ONCE IV ; Start 10/01/16 at 10 :50; Stop 10/02/16 at 09:51; Status DC Rocuronium [place] (Zemuron) 50 mg STK-MED ONCE .ROUTE ; Start 10/01/16 at 10:50 ; Stop 10/02/16 at 09:51; Status DC Fentanyl Citrate (Fentanyl 2ml Vial) 100 mcg STK-MED ONCE .ROUTE ; Start at 11:45; Stop 10/02/16 at 09:52; Status DC Dexamethasone Sodium Phosphate (Decadron) 20 mg STK-MED ONCE .ROUTE ; Start at 11:45; Stop 10/02/16 at 09:52; Status DC Ondansetron HCl (Zofran) 4 mg STK-MED ONCE .ROUTE ; Start 10/01/16 at 11:45; Stop 10/02/16 at 09:52; Status DC Ketorolac Tromethamine (Toradol For Or Only) 30 mg STK-MED ONCE INJ ; Start at 11:45; Stop 10/02/16 at 09:52; Status DC Glycopyrrolate (Robinul) 1 mg STK-MED ONCE .ROUTE ; Start 10/01/16 at 11:46; Stop 10/02/16 at 09:52; Status DC Neostigmine Methylsulfate 5 mg STK-MED ONCE .ROUTE ; Start 10/01/16 at 11:46; Stop 10/02/16 at 09:52; Status DC Bupivacaine HCl/ Epinephrine Bitart (Sensorcain-Mpf Epi 0.5%-1:[id number]) 30 ml STK -MED ONCE .ROUTE ; Start 10/01/16 at 12:57; Stop 10/02/16 at 09:54; Status DC Iohexol (Omnipaque 300 Mg/ml) 50 ml STK-MED ONCE .ROUTE ; Start 10/01/16 at 12: 58; Stop 10/02/16 at 09:54; Status DC Cellulose 1 each STK-MED ONCE .ROUTE ; Start 10/01/16 at 12:58; Stop 10/02/16 at 09:54; Status DC Bisacodyl (Dulcolax Supp) 10 mg STK-MED ONCE .ROUTE ; Start 10/01/16 at 12:58; Stop 10/02/16 at 09:54; Status DC Desflurane (Suprane) 60 ml STK-MED ONCE IH ; Start 10/01/16 at 13:18; Stop 10/02 at 09:54; Status DC Fentanyl Citrate (Fentanyl 2ml Vial) 100 mcg STK-MED ONCE .ROUTE ; Start at 13:21; Stop 10/02/16 at 09:54; Status DC Ephedrine Sulfate 50 mg STK-MED ONCE IV ; Start 10/01/16 at 13:23; Stop at 09:55; Status DC Esmolol HCl (Brevibloc) 100 mg STK-MED ONCE IV ; Start 10/01/16 at 13:49; Stop 10/02/16 at 09:55; Status DC Rocuronium [place] (Zemuron) 50 mg STK-MED ONCE .ROUTE ; Start 10/01/16 at 13:50 ; Stop 10/02/16 at 09:55; Status DC Fentanyl Citrate (Fentanyl 2ml Vial) 100 mcg STK-MED ONCE .ROUTE ; Start at 14:13; Stop 10/02/16 at 09:56; Status DC Desflurane (Suprane) 90 ml STK-MED ONCE IH ; Start 10/01/16 at 14:57; Stop 10/02 at 09:56; Status DC Morphine Sulfate 10 mg STK-MED ONCE .ROUTE ; Start 10/01/16 at 15:16; Stop 10/02 at 09:57; Status DC Sodium Chloride (Sodium Chloride) 50 ml STK-MED ONCE IJ ; Start 10/01/16 at 15: 17; Stop 10/02/16 at 09:57; Status DC Famotidine 20 mg 20 mg STK-MED ONCE .ROUTE ; Start 10/01/16 at 16:20; Stop 10/02 at 09:58; Status DC Amino Acids/ Electrolytes (Clinimix E 2.75%-5% Solution) 1,000 ml @ 80 mls/hr [id number] IV Last administered on 10/05/16 05:44; Start 10/02/16 at 14:00; Stop 10/05/16 at 15:42; Status DC Naloxone HCl 0.4 mg 0.4 mg PRN Q2MIN PRN IV SEE INSTRUCTIONS; Start 10/03/16 at 09:15 Sodium Chloride 1,000 ml @ 25 mls/hr Q24H IV ; Start 10/03/16 at 09:09; Stop at 09:56; Status DC Hydromorphone HCl (Dilaudid Standard CONNECTION WORKER) 30 ml @ 0 mls/hr CONT PRN PRN IV PROTOCOL Last administered on 10/03/16 10:14; Start 10/03/16 at 09:15; Stop at 08:36; Status DC Metoprolol Tartrate (Lopressor) 2.5 mg Q6HRS IVP Last administered on 00:06; Start 10/03/16 at 12:00; Stop 10/06/16 at 09:56; Status DC Hydralazine HCl 10 mg 10 mg PRN Q4HRS PRN IVP ELEVATED BP, SEE COMMENTS; Start 10/03/16 at 11:15 Amino Acids/ Electrolytes/ Dextrose (Clinimix E 4.25%-5% Solution) 1,000 ml @ 80 mls/hr [id number] IV Last administered on 10/08/16 02:35; Start 10/05/16 at 15 :42 Oxycodone/ Acetaminophen (Percocet 5/325) 1 tab PRN Q4HRS PRN PO PAIN Last administered on 10/08/16 08:22; Start 10/06/16 at 08:45 Hydromorphone HCl (Dilaudid) 0.4 mg PRN Q4HRS PRN IVP PAIN; Start 10/06/16 at 08:45 Oxycodone/ Acetaminophen (Percocet 5/325) 2 tab PRN Q4HRS PRN PO PAIN Last administered on 10/07/16 08:52; Start 10/06/16 at 08:45 Metoprolol Tartrate (Lopressor) 25 mg BID PO Last administered on 10/07/16 21: 28; Start 10/06/16 at 10:00 Insulin Detemir (Levemir) 10 units QHS SQ Last administered on 10/07/16 21:33 ; Start 10/06/16 at 21:00 Famotidine (Pepcid) 20 mg BID PO Last administered on 10/08/16 08:15; Start at 21:00 Amoxicillin/ Clavulanate Potassium (Augmentin 875/ 125mg) 1 tab BID PO ; Start 10/06/16 at 14:00; Stop 10/06/16 at 15:42; Status DC Levofloxacin (Levaquin) 500 mg DAILY06 PO Last administered on 10/08/16 06:19 ; Start 10/07/16 at 16:00; Stop 10/12/16 at 15:59 Metronidazole (Flagyl) 500 mg Q8HRS PO Last administered on 10/08/16 06:19; Start 10/06/16 at 16:00; Stop 10/11/16 at 15:59 Insulin Aspart (Novolog) 0-5 UNITS QIDACHS SQ Last administered on 10/08/16 08 :28; Start 10/07/16 at 16:30 Active Scripts Active Reported Potassium Gluconate 99 Mg Tablet 99 Mg PO DAILY Men's Multi-Vitamin (Multivitamin) 1 Each Tablet 1 Each PO DAILY Aspirin 325 Mg Tablet 1 Tab PO DAILY Ranitidine Hcl 300 Mg Tablet 1 Tab PO BID Glipizide 10 Mg Tablet 1 Tab PO BIDWMEALS Zetia (Ezetimibe) 10 Mg Tablet 1 Tab PO DAILY Atorvastatin Calcium 80 Mg Tablet 1 Tab PO HS Metoprolol Tartrate 25 Mg Tablet 12.5 Mg PO HS Vitals/I & O Vital Sign - Last 24 Hours 10/07/16 10/07/16 10/07/16 10/07/16 10:05 11:00 15:00 19:00 Temp 98.4 97.7 98.4 98.4 97.7 98.4 Pulse 61 63 71 Resp 14 14 18 B/P 120/46 126/50 135/46 Pulse Ox 90 94 94 O2 Delivery Room Air Room Air Room Air Room Air 10/07/16 10/07/16 10/07/16 10/08/16 20:30 21:28 23:00 03:00 Temp 99.1 98.1 99.1 98.1 Pulse 63 60 70 Resp 18 18 B/P 126/50 130/82 136/58 Pulse Ox 93 95 O2 Delivery Room Air Room Air Room Air 10/08/16 10/08/16 08:22 09:11 O2 Delivery Room Air Room Air Intake and Output 10/07/16 10/07/16 10/08/16 15:00 23:00 07:00 Output Total 200 ml Balance -200 ml EDDA CALERO MD Oct 08, 2016 09:21
--- NOTE | 2016-10-08 09:24 | PDOC ---
SURGICAL PROGRESS NOTE Subjective tolerating diet pain managed Vital Signs Vital Signs Date Time Temp Pulse Resp B/P Pulse Ox O2 Delivery O2 Flow Rate FiO2 10/08/16 09:11 Room Air 10/08/16 03:00 98.1 70 18 136/58 95 98.1 I&O Intake and Output 10/08/16 07:00 Output Total 200 ml Balance -200 ml Output Urine Total 200 ml # Voids 4 General: Alert, Oriented X3, Cooperative, No acute distress Abdomen: Soft, Other (ND, ioana scant drainage) Labs Laboratory Tests Test 10/06/16 11:45 10/06/16 16:28 10/06/16 20:32 10/07/16 04:06 Glucose (Fingerstick) 203mg/dL (70-99) 177mg/dL (70-99) 166mg/dL (70-99) Sodium Level 136mmol/L (136-145) Potassium Level 4.5mmol/L (3.5-5.1) Chloride Level 104mmol/L (98-107) Carbon Dioxide Level 26mmol/L (21-32) Anion Gap 6 (6-14) Blood Urea Nitrogen 21mg/dL (8-26) Creatinine 1.0mg/dL (0.7-1.3) Estimated GFR (Cockcroft-Gault) 73.5 Glucose Level 206mg/dL (70-99) Calcium Level 8.5mg/dL (8.5-10.1) Test 10/07/16 05:57 10/07/16 07:32 10/07/16 12:05 10/07/16 16:48 Glucose (Fingerstick) 223mg/dL (70-99) 215mg/dL (70-99) 140mg/dL (70-99) White Blood Count 8.8x10^3/uL (4.0-11.0) Red Blood Count 3.06x10^6/uL (4.30-5.70) Hemoglobin 8.9g/dL (13.0-17.5) Hematocrit 26.6% (39.0-53.0) Mean Corpuscular Volume 87fL (79-100) Mean Corpuscular Hemoglobin 29pg (25-35) Mean Corpuscular Hemoglobin Concent 34g/dL (31-37) Red Cell Distribution Width 15.5% (11.5-14.5) Platelet Count 264x10^3/uL (140-400) Neutrophils (%) (Auto) 68% (31-73) Lymphocytes (%) (Auto) 16% (24-48) Monocytes (%) (Auto) 12% (0-9) Eosinophils (%) (Auto) 4% (0-3) Basophils (%) (Auto) 1% (0-3) Neutrophils # (Auto) 6.0x10^3uL (1.8-7.7) Lymphocytes # (Auto) 1.4x10^3/uL (1.0-4.8) Monocytes # (Auto) 1.1x10^3/uL (0.0-1.1) Eosinophils # (Auto) 0.3x10^3/uL (0.0-0.7) Basophils # (Auto) 0.1x10^3/uL (0.0-0.2) Test 10/07/16 21:04 10/08/16 04:40 10/08/16 07:35 Glucose (Fingerstick) 169mg/dL (70-99) 199mg/dL (70-99) White Blood Count 9.6x10^3/uL (4.0-11.0) Red Blood Count 3.25x10^6/uL (4.30-5.70) Hemoglobin 9.4g/dL (13.0-17.5) Hematocrit 27.7% (39.0-53.0) Mean Corpuscular Volume 85fL (79-100) Mean Corpuscular Hemoglobin 29pg (25-35) Mean Corpuscular Hemoglobin Concent 34g/dL (31-37) Red Cell Distribution Width 15.6% (11.5-14.5) Platelet Count 284x10^3/uL (140-400) Neutrophils (%) (Auto) 69% (31-73) Lymphocytes (%) (Auto) 14% (24-48) Monocytes (%) (Auto) 12% (0-9) Eosinophils (%) (Auto) 4% (0-3) Basophils (%) (Auto) 1% (0-3) Neutrophils # (Auto) 6.6x10^3uL (1.8-7.7) Lymphocytes # (Auto) 1.4x10^3/uL (1.0-4.8) Monocytes # (Auto) 1.2x10^3/uL (0.0-1.1) Eosinophils # (Auto) 0.3x10^3/uL (0.0-0.7) Basophils # (Auto) 0.1x10^3/uL (0.0-0.2) Sodium Level 140mmol/L (136-145) Potassium Level 4.3mmol/L (3.5-5.1) Chloride Level 104mmol/L (98-107) Carbon Dioxide Level 27mmol/L (21-32) Anion Gap 9 (6-14) Blood Urea Nitrogen 22mg/dL (8-26) Creatinine 1.1mg/dL (0.7-1.3) Estimated GFR (Cockcroft-Gault) 65.8 Glucose Level 202mg/dL (70-99) Calcium Level 9.0mg/dL (8.5-10.1) Laboratory Tests Test 10/07/16 12:05 10/07/16 16:48 10/07/16 21:04 10/08/16 04:40 Glucose (Fingerstick) 215mg/dL (70-99) 140mg/dL (70-99) 169mg/dL (70-99) White Blood Count 9.6x10^3/uL (4.0-11.0) Red Blood Count 3.25x10^6/uL (4.30-5.70) Hemoglobin 9.4g/dL (13.0-17.5) Hematocrit 27.7% (39.0-53.0) Mean Corpuscular Volume 85fL (79-100) Mean Corpuscular Hemoglobin 29pg (25-35) Mean Corpuscular Hemoglobin Concent 34g/dL (31-37) Red Cell Distribution Width 15.6% (11.5-14.5) Platelet Count 284x10^3/uL (140-400) Neutrophils (%) (Auto) 69% (31-73) Lymphocytes (%) (Auto) 14% (24-48) Monocytes (%) (Auto) 12% (0-9) Eosinophils (%) (Auto) 4% (0-3) Basophils (%) (Auto) 1% (0-3) Neutrophils # (Auto) 6.6x10^3uL (1.8-7.7) Lymphocytes # (Auto) 1.4x10^3/uL (1.0-4.8) Monocytes # (Auto) 1.2x10^3/uL (0.0-1.1) Eosinophils # (Auto) 0.3x10^3/uL (0.0-0.7) Basophils # (Auto) 0.1x10^3/uL (0.0-0.2) Sodium Level 140mmol/L (136-145) Potassium Level 4.3mmol/L (3.5-5.1) Chloride Level 104mmol/L (98-107) Carbon Dioxide Level 27mmol/L (21-32) Anion Gap 9 (6-14) Blood Urea Nitrogen 22mg/dL (8-26) Creatinine 1.1mg/dL (0.7-1.3) Estimated GFR (Cockcroft-Gault) 65.8 Glucose Level 202mg/dL (70-99) Calcium Level 9.0mg/dL (8.5-10.1) Test 10/08/16 07:35 Glucose (Fingerstick) 199mg/dL (70-99) Problem List Problems Medical Problems: (1) Cholecystoduodenal fistula Status: Acute (2) Cholelithiasis Status: Acute Assessment/Plan improving continue FL, tube feeds--will review with Dr Doyle Problems: LESLIE LOUISE APRN Oct 08, 2016 09:24
[2016-10-08 11:00] VITALS: BP 126/59
[2016-10-08 15:00] VITALS: BP 127/52
[2016-10-08 19:20] VITALS: BP 151/66
[2016-10-08] MEDS: ATORVASTATIN CALCIUM 40 MG TABLET. PO SCH (21:15)
[2016-10-08] MEDS: INSULIN DETEMIR 300 UNITS/3 ML INSULN.PEN. SQ SCH (21:25)
[2016-10-08 23:15] VITALS: BP 144/66
[2016-10-09 03:12] VITALS: BP 142/62
[2016-10-09 05:09] LABS: BASO # 0.1 x10^3/uL (0.0-0.2); BASO % 1 % (0-3); EOS % 4 % (0-3); HEMOGLOBIN 9.3 g/dL (13.0-17.5); LYMPH # 1.7 x10^3/uL (1.0-4.8); LYMPH % 20 % (24-48); MEAN CORPUSCULAR HEMOGLOBIN 29 pg (25-35); MEAN CORPUSCULAR HGB CONC 33 g/dL (31-37); MEAN CORPUSCULAR VOLUME 87 fL (79-100); MONO % 13 % (0-9); NEUT % 63 % (31-73); PLATELET COUNT 291 x10^3/uL (140-400); RED BLOOD COUNT 3.23 x10^6/uL (4.30-5.70); RED CELL DISTRIBUTION WIDTH 15.2 % (11.5-14.5); WHITE BLOOD COUNT 8.5 x10^3/uL (4.0-11.0)
[2016-10-09] MEDS: LEVOFLOXACIN 500 MG TABLET PO SCH (05:18)
[2016-10-09] MEDS: AA 4.25%/CALCIUM/LYTES/D5W 1,000 ML IV SCH (05:18)
[2016-10-09] MEDS: METRONIDAZOLE 500 MG TABLET. PO SCH (05:19)
[2016-10-09 05:30] LABS: CALCIUM 8.8 mg/dL (8.5-10.1); CREATININE 1.1 mg/dL (0.7-1.3); GFR 65.8; POTASSIUM 4.3 mmol/L (3.5-5.1)
[2016-10-09 07:00] VITALS: BP 142/54
[2016-10-09] MEDS: METOPROLOL TART IMMED RELEASE 25 MG TABLET PO SCH (08:04)
[2016-10-09] MEDS: FAMOTIDINE 20 MG TABLET. PO SCH (08:04)
[2016-10-09] MEDS: MULTIVITAMIN with MINERAL TABLET. PO SCH (08:04)
[2016-10-09] MEDS: EZETIMIBE 10 MG TABLET PO SCH (08:04)
[2016-10-09] MEDS: ENOXAPARIN 40 MG/0.4 ML DISP.SYRIN. SQ SCH (08:05)
[2016-10-09] MEDS: INSULIN ASPART 300 UNITS/3 ML INSULN.PEN SQ SCH ×2 (08:19→12:27)
--- NOTE | 2016-10-09 08:49 | PDOC ---
SURGICAL PROGRESS NOTE Subjective tolerating diet ready to go home Vital Signs Vital Signs Date Time Temp Pulse Resp B/P Pulse Ox O2 Delivery O2 Flow Rate FiO2 10/09/16 08:04 74 142/54 10/09/16 07:00 97.5 18 96 Room Air 97.5 I&O Intake and Output 10/09/16 07:00 Intake Total 1220 ml Output Total 2205 ml Balance -985 ml Intake Oral 240 ml IV Total 980 ml Gastric Drainage Total 2200 ml Drainage Total 5 ml # Voids 4 General: Alert, Oriented X3, Cooperative, No acute distress Abdomen: Soft, Other (incision c/d/i, no erythema, drain scant output, tubes clamped ) Labs Laboratory Tests Test 10/07/16 12:05 10/07/16 16:48 10/07/16 21:04 10/08/16 04:40 Glucose (Fingerstick) 215mg/dL (70-99) 140mg/dL (70-99) 169mg/dL (70-99) White Blood Count 9.6x10^3/uL (4.0-11.0) Red Blood Count 3.25x10^6/uL (4.30-5.70) Hemoglobin 9.4g/dL (13.0-17.5) Hematocrit 27.7% (39.0-53.0) Mean Corpuscular Volume 85fL (79-100) Mean Corpuscular Hemoglobin 29pg (25-35) Mean Corpuscular Hemoglobin Concent 34g/dL (31-37) Red Cell Distribution Width 15.6% (11.5-14.5) Platelet Count 284x10^3/uL (140-400) Neutrophils (%) (Auto) 69% (31-73) Lymphocytes (%) (Auto) 14% (24-48) Monocytes (%) (Auto) 12% (0-9) Eosinophils (%) (Auto) 4% (0-3) Basophils (%) (Auto) 1% (0-3) Neutrophils # (Auto) 6.6x10^3uL (1.8-7.7) Lymphocytes # (Auto) 1.4x10^3/uL (1.0-4.8) Monocytes # (Auto) 1.2x10^3/uL (0.0-1.1) Eosinophils # (Auto) 0.3x10^3/uL (0.0-0.7) Basophils # (Auto) 0.1x10^3/uL (0.0-0.2) Sodium Level 140mmol/L (136-145) Potassium Level 4.3mmol/L (3.5-5.1) Chloride Level 104mmol/L (98-107) Carbon Dioxide Level 27mmol/L (21-32) Anion Gap 9 (6-14) Blood Urea Nitrogen 22mg/dL (8-26) Creatinine 1.1mg/dL (0.7-1.3) Estimated GFR (Cockcroft-Gault) 65.8 Glucose Level 202mg/dL (70-99) Calcium Level 9.0mg/dL (8.5-10.1) Test 10/08/16 07:35 10/08/16 11:50 10/08/16 16:49 10/08/16 20:58 Glucose (Fingerstick) 199mg/dL (70-99) 203mg/dL (70-99) 186mg/dL (70-99) 176mg/dL (70-99) Test 10/09/16 04:40 White Blood Count 8.5x10^3/uL (4.0-11.0) Red Blood Count 3.23x10^6/uL (4.30-5.70) Hemoglobin 9.3g/dL (13.0-17.5) Hematocrit 28.0% (39.0-53.0) Mean Corpuscular Volume 87fL (79-100) Mean Corpuscular Hemoglobin 29pg (25-35) Mean Corpuscular Hemoglobin Concent 33g/dL (31-37) Red Cell Distribution Width 15.2% (11.5-14.5) Platelet Count 291x10^3/uL (140-400) Neutrophils (%) (Auto) 63% (31-73) Lymphocytes (%) (Auto) 20% (24-48) Monocytes (%) (Auto) 13% (0-9) Eosinophils (%) (Auto) 4% (0-3) Basophils (%) (Auto) 1% (0-3) Neutrophils # (Auto) 5.4x10^3uL (1.8-7.7) Lymphocytes # (Auto) 1.7x10^3/uL (1.0-4.8) Monocytes # (Auto) 1.1x10^3/uL (0.0-1.1) Eosinophils # (Auto) 0.4x10^3/uL (0.0-0.7) Basophils # (Auto) 0.1x10^3/uL (0.0-0.2) Sodium Level 140mmol/L (136-145) Potassium Level 4.3mmol/L (3.5-5.1) Chloride Level 105mmol/L (98-107) Carbon Dioxide Level 25mmol/L (21-32) Anion Gap 10 (6-14) Blood Urea Nitrogen 25mg/dL (8-26) Creatinine 1.1mg/dL (0.7-1.3) Estimated GFR (Cockcroft-Gault) 65.8 Glucose Level 166mg/dL (70-99) Calcium Level 8.8mg/dL (8.5-10.1) Laboratory Tests Test 10/08/16 11:50 10/08/16 16:49 10/08/16 20:58 10/09/16 04:40 Glucose (Fingerstick) 203mg/dL (70-99) 186mg/dL (70-99) 176mg/dL (70-99) White Blood Count 8.5x10^3/uL (4.0-11.0) Red Blood Count 3.23x10^6/uL (4.30-5.70) Hemoglobin 9.3g/dL (13.0-17.5) Hematocrit 28.0% (39.0-53.0) Mean Corpuscular Volume 87fL (79-100) Mean Corpuscular Hemoglobin 29pg (25-35) Mean Corpuscular Hemoglobin Concent 33g/dL (31-37) Red Cell Distribution Width 15.2% (11.5-14.5) Platelet Count 291x10^3/uL (140-400) Neutrophils (%) (Auto) 63% (31-73) Lymphocytes (%) (Auto) 20% (24-48) Monocytes (%) (Auto) 13% (0-9) Eosinophils (%) (Auto) 4% (0-3) Basophils (%) (Auto) 1% (0-3) Neutrophils # (Auto) 5.4x10^3uL (1.8-7.7) Lymphocytes # (Auto) 1.7x10^3/uL (1.0-4.8) Monocytes # (Auto) 1.1x10^3/uL (0.0-1.1) Eosinophils # (Auto) 0.4x10^3/uL (0.0-0.7) Basophils # (Auto) 0.1x10^3/uL (0.0-0.2) Sodium Level 140mmol/L (136-145) Potassium Level 4.3mmol/L (3.5-5.1) Chloride Level 105mmol/L (98-107) Carbon Dioxide Level 25mmol/L (21-32) Anion Gap 10 (6-14) Blood Urea Nitrogen 25mg/dL (8-26) Creatinine 1.1mg/dL (0.7-1.3) Estimated GFR (Cockcroft-Gault) 65.8 Glucose Level 166mg/dL (70-99) Calcium Level 8.8mg/dL (8.5-10.1) Problem List Problems Medical Problems: (1) Cholecystoduodenal fistula Status: Acute (2) Cholelithiasis Status: Acute Assessment/Plan s/p open wero home with J and G tube clamped nursing to instruct on [facility] care FU [address] Doyle Problems: LESLIE LOUISE APRN Oct 09, 2016 08:49
--- NOTE | 2016-10-09 09:56 | PDOC ---
SURGICAL PROGRESS NOTE Subjective Vital Signs Vital Signs Date Time Temp Pulse Resp B/P Pulse Ox O2 Delivery O2 Flow Rate FiO2 10/09/16 08:04 74 142/54 10/09/16 07:00 97.5 18 96 Room Air 97.5 I&O Intake and Output 10/09/16 07:00 Intake Total 1220 ml Output Total 2205 ml Balance -985 ml Intake Oral 240 ml IV Total 980 ml Gastric Drainage Total 2200 ml Drainage Total 5 ml # Voids 4 Labs Laboratory Tests Test 10/07/16 12:05 10/07/16 16:48 10/07/16 21:04 10/08/16 04:40 Glucose (Fingerstick) 215mg/dL (70-99) 140mg/dL (70-99) 169mg/dL (70-99) White Blood Count 9.6x10^3/uL (4.0-11.0) Red Blood Count 3.25x10^6/uL (4.30-5.70) Hemoglobin 9.4g/dL (13.0-17.5) Hematocrit 27.7% (39.0-53.0) Mean Corpuscular Volume 85fL (79-100) Mean Corpuscular Hemoglobin 29pg (25-35) Mean Corpuscular Hemoglobin Concent 34g/dL (31-37) Red Cell Distribution Width 15.6% (11.5-14.5) Platelet Count 284x10^3/uL (140-400) Neutrophils (%) (Auto) 69% (31-73) Lymphocytes (%) (Auto) 14% (24-48) Monocytes (%) (Auto) 12% (0-9) Eosinophils (%) (Auto) 4% (0-3) Basophils (%) (Auto) 1% (0-3) Neutrophils # (Auto) 6.6x10^3uL (1.8-7.7) Lymphocytes # (Auto) 1.4x10^3/uL (1.0-4.8) Monocytes # (Auto) 1.2x10^3/uL (0.0-1.1) Eosinophils # (Auto) 0.3x10^3/uL (0.0-0.7) Basophils # (Auto) 0.1x10^3/uL (0.0-0.2) Sodium Level 140mmol/L (136-145) Potassium Level 4.3mmol/L (3.5-5.1) Chloride Level 104mmol/L (98-107) Carbon Dioxide Level 27mmol/L (21-32) Anion Gap 9 (6-14) Blood Urea Nitrogen 22mg/dL (8-26) Creatinine 1.1mg/dL (0.7-1.3) Estimated GFR (Cockcroft-Gault) 65.8 Glucose Level 202mg/dL (70-99) Calcium Level 9.0mg/dL (8.5-10.1) Test 10/08/16 07:35 10/08/16 11:50 10/08/16 16:49 10/08/16 20:58 Glucose (Fingerstick) 199mg/dL (70-99) 203mg/dL (70-99) 186mg/dL (70-99) 176mg/dL (70-99) Test 10/09/16 04:40 White Blood Count 8.5x10^3/uL (4.0-11.0) Red Blood Count 3.23x10^6/uL (4.30-5.70) Hemoglobin 9.3g/dL (13.0-17.5) Hematocrit 28.0% (39.0-53.0) Mean Corpuscular Volume 87fL (79-100) Mean Corpuscular Hemoglobin 29pg (25-35) Mean Corpuscular Hemoglobin Concent 33g/dL (31-37) Red Cell Distribution Width 15.2% (11.5-14.5) Platelet Count 291x10^3/uL (140-400) Neutrophils (%) (Auto) 63% (31-73) Lymphocytes (%) (Auto) 20% (24-48) Monocytes (%) (Auto) 13% (0-9) Eosinophils (%) (Auto) 4% (0-3) Basophils (%) (Auto) 1% (0-3) Neutrophils # (Auto) 5.4x10^3uL (1.8-7.7) Lymphocytes # (Auto) 1.7x10^3/uL (1.0-4.8) Monocytes # (Auto) 1.1x10^3/uL (0.0-1.1) Eosinophils # (Auto) 0.4x10^3/uL (0.0-0.7) Basophils # (Auto) 0.1x10^3/uL (0.0-0.2) Sodium Level 140mmol/L (136-145) Potassium Level 4.3mmol/L (3.5-5.1) Chloride Level 105mmol/L (98-107) Carbon Dioxide Level 25mmol/L (21-32) Anion Gap 10 (6-14) Blood Urea Nitrogen 25mg/dL (8-26) Creatinine 1.1mg/dL (0.7-1.3) Estimated GFR (Cockcroft-Gault) 65.8 Glucose Level 166mg/dL (70-99) Calcium Level 8.8mg/dL (8.5-10.1) Laboratory Tests Test 10/08/16 11:50 10/08/16 16:49 10/08/16 20:58 10/09/16 04:40 Glucose (Fingerstick) 203mg/dL (70-99) 186mg/dL (70-99) 176mg/dL (70-99) White Blood Count 8.5x10^3/uL (4.0-11.0) Red Blood Count 3.23x10^6/uL (4.30-5.70) Hemoglobin 9.3g/dL (13.0-17.5) Hematocrit 28.0% (39.0-53.0) Mean Corpuscular Volume 87fL (79-100) Mean Corpuscular Hemoglobin 29pg (25-35) Mean Corpuscular Hemoglobin Concent 33g/dL (31-37) Red Cell Distribution Width 15.2% (11.5-14.5) Platelet Count 291x10^3/uL (140-400) Neutrophils (%) (Auto) 63% (31-73) Lymphocytes (%) (Auto) 20% (24-48) Monocytes (%) (Auto) 13% (0-9) Eosinophils (%) (Auto) 4% (0-3) Basophils (%) (Auto) 1% (0-3) Neutrophils # (Auto) 5.4x10^3uL (1.8-7.7) Lymphocytes # (Auto) 1.7x10^3/uL (1.0-4.8) Monocytes # (Auto) 1.1x10^3/uL (0.0-1.1) Eosinophils # (Auto) 0.4x10^3/uL (0.0-0.7) Basophils # (Auto) 0.1x10^3/uL (0.0-0.2) Sodium Level 140mmol/L (136-145) Potassium Level 4.3mmol/L (3.5-5.1) Chloride Level 105mmol/L (98-107) Carbon Dioxide Level 25mmol/L (21-32) Anion Gap 10 (6-14) Blood Urea Nitrogen 25mg/dL (8-26) Creatinine 1.1mg/dL (0.7-1.3) Estimated GFR (Cockcroft-Gault) 65.8 Glucose Level 166mg/dL (70-99) Calcium Level 8.8mg/dL (8.5-10.1) Problem List Problems Medical Problems: (1) Cholecystoduodenal fistula Status: Acute (2) Cholelithiasis Status: Acute Problems: LESLIE LOUISE APRN Oct 09, 2016 09:56
[2016-10-09 11:00] VITALS: BP 139/43
[2016-10-09] MEDS ORDERED: METR500T PO (11:36)
[2016-10-09] MEDS ORDERED: LEVO500T38 PO (11:36)
--- NOTE | 2016-10-10 00:20 | DS ---
DATE OF DISCHARGE: 10/09/2016 DISCHARGE DIAGNOSES: 1. Cholelithiasis status post endoscopic retrograde cholangiopancreatography with sphincterotomy at outside facility status post laparoscopy with open cholecystectomy with repair of cholecystoduodenostomy fistula and liver biopsy and G-tube and J-tube placement. 2. Complicated cholecystitis with peritonitis. 3. Hypertension, stable. 4. Diabetes mellitus, stable. 5. Hyperlipidemia. 6. Coronary artery disease with coronary artery bypass grafting. BRIEF HOSPITAL COURSE: This is a 71-year-old male patient admitted to the hospital on 09/27/2016, by Dr. Benites for symptomatic cholelithiasis. He was evaluated by General Surgery Dr. Doyle and took him to surgery on 10/01/2016, for laparoscopic cholecystectomy; however, it converted to open cholecystectomy and liver biopsy and G-tube tube and J-tube placement. Postoperatively, he was placed in the Critical Care Unit for suspected peritonitis and started on broad spectrum antibiotics and initially he was on POULTRY RAISER, TPN later had been changed to IV pushes. Slowly, the patient's clinical symptoms improved and for the last few days, he has been able to tolerate diet very well, no symptoms such as nausea, vomiting or fever. Today, his pain has been well controlled, deemed clinically stable to go home and follow up with Dr. Doyle. His G-tube and J-tube have been clamped. The patient sent home in stable condition with scripts. DISCHARGE EXAMINATION: GENERAL: Alert, oriented x 3. HEART: S1, S2 present. LUNGS: Anterior chest clear. ABDOMEN: Soft, nontender, bowel sounds present. EXTREMITIES: No edema. DISCHARGE DISPOSITION: Home. DISCHARGE CONDITION: Stable. MEDICATIONS: Reviewed and reconciled. Please see MRAD. FOLLOWUP: With Dr. Doyel in less than 1 week. DIET: Regular diet. The patient is advised to limit any meat products until seen by Dr. Doyle. Total time spent for discharge is 35 minutes for patient education, counseling, and coordination of care. EDDA CALERO MD DR: DARLIN/maryse JOB#: [id number] / [id number] YVONNE
== END 2016-10-09 13:15 | disposition home or self-care (01) | DRG 414 ==
LOC: 4 NORTH 15:59 → UNDODISIN 10-01 21:50 → 1 WEST ICU 10-02 00:06 → 4 NORTH 10-04 22:35
PROVIDERS: ADMIT Internal Medicine; ATTEND Internal Medicine
PROC: 0FJ44ZZ Inspection of Gallbladder, Percutaneous Endoscopic Approach (ICD-10-PCS; 2016-10-01)
PROC: 0DC90ZZ Extirpation of Matter from Duodenum, Open Approach (ICD-10-PCS; 2016-10-01)
PROC: 0D160ZA Bypass Stomach to Jejunum, Open Approach (ICD-10-PCS; 2016-10-01)
PROC: 0DHA3UZ Insertion of Feeding Device into Jejunum, Percutaneous Approach (ICD-10-PCS; 2016-10-01)
PROC: 0FB00ZX Excision of Liver, Open Approach, Diagnostic (ICD-10-PCS; 2016-10-01)
PROC: 0DQ90ZZ Repair Duodenum, Open Approach (ICD-10-PCS; 2016-10-01)
PROC: 0DH63UZ Insertion of Feeding Device into Stomach, Percutaneous Approach (ICD-10-PCS; 2016-10-01)
PROC: 0FT40ZZ Resection of Gallbladder, Open Approach (ICD-10-PCS; principal; 2016-10-01 14:00)
DX: K80.60 Calculus of gallbladder and bile duct with cholecystitis, unspecified, without obstruction (principal); K65.9 Peritonitis, unspecified; K76.6 Portal hypertension; E44.0 Moderate protein-calorie malnutrition; Z68.33 Body mass index [BMI] 33.0-33.9, adult; Z95.1 Presence of aortocoronary bypass graft; I25.10 Atherosclerotic heart disease of native coronary artery without angina pectoris; E78.5 Hyperlipidemia, unspecified; K66.0 Peritoneal adhesions (postprocedural) (postinfection); Z82.49 Family history of ischemic heart disease and other diseases of the circulatory system; D64.9 Anemia, unspecified; E11.65 Type 2 diabetes mellitus with hyperglycemia; E66.01 Morbid (severe) obesity due to excess calories; K74.60 Unspecified cirrhosis of liver; Z53.31 Laparoscopic surgical procedure converted to open procedure; Z79.4 Long term (current) use of insulin; Z79.899 Other long term (current) drug therapy; Z79.82 Long term (current) use of aspirin; Z88.0 Allergy status to penicillin; Z88.8 Allergy status to other drugs, medicaments and biological substances; I12.9 Hypertensive chronic kidney disease with stage 1 through stage 4 chronic kidney disease, or unspecified chronic kidney disease; N18.3 Chronic kidney disease, stage 3 (moderate)
CPT/HCPCS: 36415; 71020; 74000; 80048; 80053; 80061; 80076; 82607; 82728; 82746; 82947; 83540; 83550; 83735; 84100; 85027; 85045; 85610; 87324; 88304; 88307; 88313; 88331; 93005; C1782; J0780; J1100; J1170; J1335; J1650; J1815; J1885; J1956; J2270; J2405; J2704; J2710; J3010; J3490; J7030; J7120; Q9967; S0028; 97116; 97530; 97535

== ENCOUNTER → 2016-11-05 | Outpatient (CLI) | payer MEDICARE ==
[2016-10-09 11:00] VITALS: BP 139/43
[~2016-11-05] MED LIST changes: +LEVO500T38 PO; +METR500T PO
--- NOTE | 2016-11-05 10:25 | KCIC ---
PROCEDURE Right upper quadrant ultrasound. HISTORY Follow up gallbladder. Patient had biliary stent placed about a month ago post cholecystectomy. TECHNIQUE Right upper quadrant ultrasound was performed. COMPARISON None at this institution. FINDINGS Pancreas evaluation is limited given body habitus and bowel gas. Visualized portion is within normal limits. There is diffuse increase in echogenicity of the liver without discrete lesion. Right hepatic lobe measures 16.5 centimeters in length. Gallbladder is absent. There is a 2.5 x 2.9 x 2.0 centimeter heterogeneous hypoechoic oval-shaped structure with increased through transmission in the gallbladder fossa, nonspecific, could represent a small postoperative hematoma. Right kidney measures at least 9.8 centimeters in length and is without hydronephrosis or mass. Common bile duct/biliary stent are not evaluated given bowel gas and body habitus. IMPRESSION 1. Nonvisualized common bile duct/biliary stent. 2. Oval-shaped hypoechoic structure in the gallbladder fossa could represent small hematoma. If there is concern for bile leak, consider nuclear medicine evaluation. Electronically signed by: Jani Zuniga MD (Nov 05, 2016 10:23:09)
== END | disposition home or self-care (01) ==
LOC: KCIC US 09:00
PROVIDERS: ATTEND Internal Medicine
DX: Z90.49 Acquired absence of other specified parts of digestive tract (principal)
CPT/HCPCS: 76705

== ENCOUNTER → 2016-11-07 | Outpatient (CLI) | payer MEDICARE ==
[2016-10-09 11:00] VITALS: BP 139/43
--- NOTE | 2016-11-07 16:44 | KCIC ---
X-ray acute abdominal series Indication: Biliary stent placement. Time of exam 4:14 p.m. Changes of median sternotomy are noted. There is a nodular density identified in the right mid lung which appears to be fairly dense and may represent a granuloma. This measures approximately 1 centimeter in size. No free air is seen. There is a stent in the right upper quadrant consistent with a biliary stent. The bowel gas pattern is nonobstructive. There is a small calcific density in the left abdomen measuring 6 millimeters. This projects just medial to the renal shadow but a small urinary tract calculus cannot be entirely excluded. Impression: Biliary stent. Left abdominal calcification, perhaps a urinary tract calculus. Clinical correlation is recommended. The study is otherwise unremarkable. Electronically signed by: James Baxter MD (Nov 07, 2016 16:42:49)
== END | disposition home or self-care (01) ==
LOC: KCIC 15:50
PROVIDERS: ATTEND Internal Medicine Gastroenterology
DX: Z96.89 Presence of other specified functional implants (principal)
CPT/HCPCS: 74022

== ENCOUNTER → 2016-11-15 | Day surgery (SDC) | payer BC, MEDICARE ==
[~2016-11-15] MED LIST changes: +IV RINGERS,LACTATED 1000ML 1,000 ML IV SCH; +LIDOCAINE 2% PF Vial for OR 5 ML VIAL. ONE; +PROPOFOL 0 ML IV ONE; +PROPOFOL 20 ML IV ONE
[2016-11-15 13:57] VITALS: BP 142/64
== END | disposition home or self-care (01) ==
LOC: ENDOS 12:24
PROVIDERS: ATTEND Internal Medicine Gastroenterology
DX: Z46.59 Encounter for fitting and adjustment of other gastrointestinal appliance and device (principal); Z98.0 Intestinal bypass and anastomosis status; K29.50 Unspecified chronic gastritis without bleeding; E78.00 Pure hypercholesterolemia, unspecified; I10 Essential (primary) hypertension; E11.9 Type 2 diabetes mellitus without complications; Z90.49 Acquired absence of other specified parts of digestive tract
CPT/HCPCS: 82947; J2704